=== PATIENT | female | born 1970 | race Caucasian/White ===

== ENCOUNTER 2021-01-28 11:18 | Emergency (ER) | payer OTHER, SELFPAY ==
[2021-01-28 11:53] VITALS: BP 102/58; PULSE 60; RESP 14; O2SAT 95; BMI 30.2
[2021-01-28] MEDS: Amoxicillin/Potassium Clav 875 MG TABLET PO (14:40)
--- NOTE | 2021-01-28 14:42 | ED.DENTAL ---
HPI - Dental/Oral General Chief complaint: Dental/Oral Stated complaint: tooth pain Time Seen by Provider: 01/28/21 13:19 Source: patient Mode of arrival: ambulatory History of Present Illness HPI Narrative: 50-year-old female with no significant past medical history presenting to the ED complaining of left upper tooth pain x 10 days. Reports pain radiating to ear/face, partially relieved with Tylenol/Motrin and ice at home. Denies fever, chills, inability to swallow, drainage from area, trauma Related Data Previous Rx's Medication Instructions Recorded amoxicillin-pot clavulanate 1 tab PO Q12H 7 Days #14 tab 01/28/21 [Augmentin] hydrocodone-acetaminophen 1 tab PO Q8H PRN 3 Days #9 tab 01/28/21 Allergies Allergy/AdvReac Type Severity Reaction Status Date / Time control pills Allergy Unknown DVT, R leg Uncoded 01/28/21 11:59 Review of Systems Review of Systems: Constitutional: No Fever, No Chills ENT/Mouth: +dental pain, + Ear Pain, No Nasal Congestion, No sore throat, No Rhinorrhea, No Swallowing Difficulty Cardiovascular: No Chest Pain, No SOB Respiratory: No Cough, No Sputum Gastrointestinal: No Nausea, No Vomiting, No Abdominal pain Musculoskeletal: No joint pain, No Myalgias Skin: No Skin Lesions, No rash Neuro: No Weakness, No Numbness, No Paresthesias, +headache Yes all other systems are reviewed and are negative [facility] Past Medical History Attestation statement: The following information was validated with the patient. Medical History (Updated 01/28/21 @ 14:43 by ROSIE Conner) No known health problems Surgical History (Updated 01/28/21 @ 11:57 by Marizol Kirk) No history of previous surgery Social History Social History Advance Directives: Yes Advance Directives Information Provided: No Advance Directives on File: No Patient : No Physical Exam Vital Signs: Vital Signs: Last Vital Signs Pulse 60 01/28/21 11:53 Resp 14 01/28/21 11:53 BP 102/58 L 01/28/21 11:53 Pulse Ox 95 01/28/21 11:53 Body Mass Index 30.2 Const: General: cooperative, healthy appearing and no acute distress Orientation/consciousness: patient oriented x3 Limitations: no limitations HENMT: Head: Yes normal to inspection Ears: hearing grossly normal bilaterally, external ears normal and TM's normal bilaterally General nose exam: Normal external nose present Face and sinus: Yes normal facial exam Teeth and gingiva: abnormal tooth and associated gingiva (Swollen and tender to palpation. No fluctuance/induration) upper left first molar , caries, gingiva abnormal and poor dentition Eyes: General: appearance normal, both eyes and all related structures EOM: EOMs intact bilaterally Neck: Neck: Yes normal visual inspection, Yes no lymphadenopathy and Yes no meningeal signs Resp: Effort & Inspection: normal respiratory effort, not labored and no stridor Cardio: Rate: regular rate Heart sounds: S1 normal heart sound present and S2 normal heart sound present Skin: Rashes: no rashes Wounds: no wounds Neuro: General: patient oriented x3 and no meningeal signs Gait exam (Neuro): Normal gait present Extrem: General: Yes normal to inspection MDM - Dental/Oral MDM Narrative Medical decision making narrative: 50-year-old female with no significant past medical history presenting to the ED complaining of left upper tooth pain x 10 days. On exam vital signs stable, NAD, well appearing, physical exam as above, left upper 1st molar with gingival swelling and tenderness, no appreciable abscess/fluctuance or induration. Discussed with patient she needs to follow-up with dentistry, she has an appointment on Tuesday Plan: Augmentin, pain medication Discharge Plan Discharge Clinical Impression: Dental caries Patient Disposition: Home, Self-Care Instructions: Mouth Care (ED) Additional Instructions: Augmentin is an antibiotic, take as prescribed. Continue taking Tylenol and Motrin at home [place] is an opiate pain medication, take the next 3 days for severe pain. Be were [place] has Tylenol mixed in, do not exceed 4 g of Tylenol 1 day You need to follow-up with a dentist on Tuesday as scheduled Continue to ice If pain persists or worsens, becomes unbearable, you have of drainage or fever please return to the ED Prescriptions: New amoxicillin-pot clavulanate [Augmentin] 875-125 mg tablet 1 tab PO Q12H 7 Days Qty: 14 RF: 0 hydrocodone-acetaminophen 5-325 mg tablet 1 tab PO Q8H PRN (Reason: pain, severe) 3 Days Qty: 9 RF: 0 Referrals: Chad Chow [Dentist] - 2 days Codey Lorenzo DMD [Dentist] - 2 days Ana Maria Aparicio DMD [Dentist] - 2 days Addy Larios DDS [Physician] - 2 days Ramsey Roldan DMD [Physician] - 2 days
== END 2021-01-28 14:52 | disposition home or self-care (01) ==
PROVIDERS: Emergency Provider Emergency Medicine; PCP Internal Medicine
DX: K02.9 Dental caries, unspecified (principal); K08.89 Other specified disorders of teeth and supporting structures
CPT/HCPCS: 99283

== ENCOUNTER 2021-06-05 22:01 | Emergency (ER) | payer OTHER, SELFPAY ==
--- NOTE | ~2021-06-05 | XR_ITS ---
EXAMINATION: XR KNEE, LEFT CLINICAL INFORMATION: Left knee pain COMPARISON: None TECHNIQUE: Four views of the left knee. FINDINGS: There is no fracture. No dislocation. Large volume suprapatellar joint effusion. There is mild narrowing of the lateral femoral tibial joint. There is no significant bone spur. No bony erosion. XR/XR knee LT 3V IMPRESSION: 1. No acute osseous abnormality. 2. Large joint effusion.
[2021-06-05 22:32] VITALS: BP 131/99; PULSE 79; RESP 18; TEMP 36.8; O2SAT 96; BMI 30.4
[2021-06-06] MEDS: Lidocaine HCl 2 % 20 ML VIAL INFILTRATI (00:32)
--- NOTE | 2021-06-06 01:05 | PC.NURSE ---
LEFT KNEE DRAINED AT BEDSIDE BY DR TOMLINSON 70CC REMOVED FROM LEFT KNEE BAND AID TO SITE AND DANIEL WRAP APPLIED AND ICE TO KNEE.
[2021-06-06 01:12] LABS: Source Synovial Fluid left knee
[2021-06-06 01:22] LABS: MN% 86.8 %; PMN% 13.2 %; WBC Synovial Fluid 0.511 X10*3/uL
[2021-06-06 01:27] LABS: RBC Synovial Fluid < 0.002 X10*6/uL
--- NOTE | 2021-06-06 01:28 | PC.NURSE ---
PT AWAITING LABS REPORT GIVEN TO CAROLINE BURRIS WHO WILL RESUME.
[2021-06-06 01:30] LABS: BF Shift QC OK YES
[2021-06-06 01:38] LABS: Lymphocytes Synovial Fluid 14 %; Monocytes Synovial Fluid 75 %; Neutrophils Synovial Fluid 9 %; Other Cells Synovial Fluid 2
--- NOTE | 2021-06-06 01:41 | ED_ITS ---
HPI - General Adult General Chief complaint: Extremity Injury, Lower Stated complaint: Knee swelling Time Seen by Provider: 06/05/21 23:57 Source: patient Mode of arrival: ambulatory History of Present Illness HPI narrative: 50-year-old female without significant past medical history presents with worsening left knee swelling that has not been associated with any traumatic event, fever, chills, redness. Patient states that this is never happened before and she denies any other joint swelling. Related Data Previous Rx's Medication Instructions Recorded amoxicillin 875 mg-potassium 1 tab PO Q12H 7 Days #14 tab 01/28/21 clavulanate 125 mg tablet (Augmentin) hydrocodone 5 mg-acetaminophen 325 1 tab PO Q8H PRN 3 Days #9 tab 01/28/21 mg tablet clindamycin HCl 300 mg capsule 300 mg PO TID 14 Days #42 cap 06/06/21 Allergies Allergy/AdvReac Type Severity Reaction Status Date / Time control pills Allergy Unknown DVT, R leg Uncoded 01/28/21 11:59 Review of Systems Review of Systems: Pertinent positives and negatives as stated in HPI and 10 point review of systems is otherwise negative. [facility] Past Medical History Source: nursing notes reviewed Medical History No known health problems Surgical History No history of previous surgery Social History Social History Alcohol intake: unknown Patient Tobacco Use Status: Never used Tobacco Use of substances other than those prescribed or required for medical reasons: Unknown Advance Directives: No Patient : No Physical Exam Vital Signs: Vital Signs: Last Vital Signs Temp 98.2 F 06/05/21 22:32 Pulse 79 06/05/21 22:32 Resp 18 06/05/21 22:32 BP 131/99 H 06/05/21 22:32 Pulse Ox 96 06/05/21 22:32 Body Mass Index 30.4 VITAL SIGNS: Reviewed. GENERAL: Well developed, well nourished, in no acute distress. HEAD: Normocephalic/atraumatic EYES: PERRLA, EOMI LUNGS: Normal breath sounds. No adventitious sounds or accessory muscle use. SpO2<96> CARDIOVASCULAR: Regular rate and rhythm without noted murmurs, no JVD or lower extremity edema. ABDOMEN: Soft, non-tender, non-distended with bowel sounds. LEFT KNEE: THERE IS A NOTED EFFUSION TO THE LEFT KNEE WITHOUT ERYTHEMA OR INDURATION BUT PAIN ON PALPATION IN DISCOMFORT ON EXTENSION AT THE KNEE NEUROLOGIC: Alert and oriented x 4. Strength and sensation to light touch were grossly intact x 4. Course Course Course Narrative: 50-year-old female with history and clinical presentation consistent with a traumatic left knee effusion without evidence of infection and denies any history of gout. Aspiration of suprapatellar effusion without complications and sent to lab. Patient placed on antibiotics and discharged home and will follow-up with her primary care provider to follow-up on remaining results. Medical Decision Making Lab Data Labs: Lab Results 06/06/21 Range/Units 00:59 Synovial Source left knee Synovial WBC 0.511 X10*3/uL Synovial RBC < 0.002 X10*6/uL Synovial Neutrophils 9 % Synovial Lymphocytes 14 % Synovial Monocytes 75 % Synovial Other Cells 2 Discharge Plan Discharge Clinical Impression: Effusion of knee joint, left Patient Disposition: Home, Self-Care Instructions: Swollen Knee Joint (ED), Joint Aspiration (DC) Additional Instructions: 1. Complete the entire course of antibiotics unless review of remaining fluid with your primary care provider is negative for evidence infection. Return to the ER for acute worsening of symptoms. Prescriptions: New clindamycin HCl 300 mg capsule 300 mg PO TID 14 Days Qty: 42 RF: 0 No Action amoxicillin-pot clavulanate [Augmentin] 875-125 mg tablet 1 tab PO Q12H 7 Days Qty: 14 RF: 0 hydrocodone-acetaminophen 5-325 mg tablet 1 tab PO Q8H PRN (Reason: pain, severe) 3 Days Qty: 9 RF: 0 Referrals: Geraldine Jackson MD [Primary Care Provider] - 2 days
== END 2021-06-06 01:51 | disposition home or self-care (01) ==
PROVIDERS: Emergency Provider Student in an Organized Health Care Education/Training Program; PCP Internal Medicine
DX: M25.462 Effusion, left knee (principal); M25.562 Pain in left knee; Z79.899 Other long term (current) drug therapy
CPT/HCPCS: 73562; 87071; 87073; 87205; 89051; 89060; 99284

== ENCOUNTER → 2022-06-15 13:56 | Outpatient (BNVA) | payer OTHER, SELFPAY | PROVIDERS: PCP Internal Medicine; Visit Provider Internal Medicine | DX: S81.052A Open bite, left knee, initial encounter (principal); S20.222A Contusion of left back wall of thorax, initial encounter; W54.0XXA Bitten by dog, initial encounter | CPT/HCPCS: 99203 ==

== ENCOUNTER → 2022-06-16 10:35 | Outpatient (BNVA) | payer OTHER, SELFPAY | PROVIDERS: PCP Internal Medicine; Visit Provider Physician Assistant | DX: S81.052A Open bite, left knee, initial encounter (principal); W54.0XXA Bitten by dog, initial encounter; M25.462 Effusion, left knee | CPT/HCPCS: 73564; 99215 ==

== ENCOUNTER → 2022-06-17 08:43 | Outpatient (BNVA) | payer OTHER, SELFPAY | PROVIDERS: PCP Internal Medicine; Visit Provider Internal Medicine | DX: S81.052A Open bite, left knee, initial encounter (principal); W54.0XXA Bitten by dog, initial encounter; M25.462 Effusion, left knee | CPT/HCPCS: 99213 ==

== ENCOUNTER → 2022-06-24 14:06 | Outpatient (BNVA) | payer OTHER, SELFPAY | PROVIDERS: PCP Internal Medicine; Visit Provider Internal Medicine | DX: S81.052D Open bite, left knee, subsequent encounter (principal); S20.222D Contusion of left back wall of thorax, subsequent encounter; W54.0XXD Bitten by dog, subsequent encounter | CPT/HCPCS: 99213 ==

== ENCOUNTER 2023-04-12 14:27 | Outpatient (AMB) | payer OTHER, SELFPAY ==
--- NOTE | 2023-04-12 14:51 | AM.OFFWIN_ITS ---
Intake Intake Visit Reasons: EP LT eye Concern Intake Note: Pt is here c/o left eye irritation. OD : 20/25 with glasses OS : 20/20 with glasses OU: 20/25 with glasses Patient Tobacco Use Status: Never used Tobacco Allergies control pills Allergy (Unknown, Uncoded 04/12/23 15:25) DVT, R leg Medication List - Last Reconciled 04/12/23 by Ritesh Matthews MD No Known Home Meds Do you need a note to return to daycare/school/sports/work: No HPI EP LT eye Concern HPI Details 52-year-old female presents to the office for a sick visit. Patient is reporting history of a swollen left eye. Symptoms started a few days ago. The upper eyelid of the left eye is particularly swollen. Vision is normal. Excessive tearing. [facility] Medical History No known health problems Surgical History No history of previous surgery Social History Alcohol intake: unknown Patient Tobacco Use Status: Never used Tobacco Physical Exam Eyes Other: Left eye: Upper eyelid purulent discharge from the medial canthus. Conjunctiva is mildly congested. Cornea and anterior chamber is clear. No digital tenderness. Assessment & Plan Assessment & Plan (1) Hordeolum externum left eye, unspecified eyelid: Code(s): H00.016 - Hordeolum externum left eye, unspecified eyelid Plan: Meloxicam, erythromycin ophthalmic ointment, Bactrim p.o. medications have been called in. Patient was advised to use warm compress. Medications: New erythromycin 0.5 inches ophthalmic (eye) TID 1 g 0RF sulfamethoxazole-trimethoprim 800-160 mg (Bactrim DS) 1 tab PO BID 14 tabs 0RF 7 days meloxicam 15 mg PO DAILY 14 tabs 0RF erythromycin 0.5 inches ophthalmic (eye) TID 1 g 0RF Coding Level of Care Code Est Pt Level 4 (33922) Diagnoses Hordeolum externum left eye, unspecified eyelid H00.016
== END 2023-04-12 15:46 | disposition home or self-care (01) ==
PROVIDERS: PCP Internal Medicine; Visit Provider Internal Medicine
DX: H00.016 Hordeolum externum left eye, unspecified eyelid (principal)
CPT/HCPCS: 99214

== ENCOUNTER 2023-08-19 00:20 | Emergency (ER) | payer OTHER, SELFPAY ==
[2023-08-19 00:28] VITALS: BP 127/70; PULSE 86; RESP 18; TEMP 36.8; O2SAT 96; BMI 32.5
--- NOTE | 2023-08-19 01:20 | ED.SKABFB ---
HPI - Skin/Abscess/Foreign Bdy General Chief complaint: Skin/Abscess/Foreign Body Stated complaint: ingrown hair into abscess ? Time Seen by Provider: 08/19/23 01:14 Source: patient Mode of arrival: ambulatory Limitations: no limitations History of Present Illness HPI narrative: Patient comes to the emergency room complaining of an abscess in the left labia majora. Patient states that approximately 2 weeks ago, she shaved, shortly after she started developing an abscess. Patient states that it is very painful, erythematous but has not drained any pus. Patient states that she has generalized malaise, no fever chills, diffuse body aches Related Data Previous Rx's Medication Instructions Recorded erythromycin 5 mg/gram (0.5 %) eye 0.5 inch ophthalmic (eye) TID #1 g 04/12/23 ointment meloxicam 15 mg tablet 15 mg PO DAILY #14 tabs 04/12/23 sulfamethoxazole 800 1 tab PO BID 7 days #14 tabs 04/12/23 mg-trimethoprim 160 mg tablet (Bactrim DS) metformin 500 mg tablet 500 mg PO BID #60 tabs 08/19/23 sulfamethoxazole 800 1 tab PO BID #20 tabs 08/19/23 mg-trimethoprim 160 mg tablet (Bactrim DS) tramadol 50 mg tablet 50 mg PO BID PRN pain #7 tabs 08/19/23 Allergies Allergy/AdvReac Type Severity Reaction Status Date / Time control pills Allergy Unknown DVT, R leg Uncoded 04/12/23 15:25 Review of Systems Review of Systems: Constitutional : No Weight loss, No Fever, No Chills, No Night Sweats, No Fatigue, No Malaise ENT/Mouth : No Hearing loss, No Ear Pain, No Nasal Congestion, No Sinus Pain, No Hoarseness, No sore throat, No Rhinorrhea, No Swallowing Difficulty Eyes: No Eye Pain, No Swelling, No Redness, No Foreign Body, No Discharge, No Vision Changes Cardiovascular : No Chest Pain, No SOB, No Dyspnea on Exertion, No Orthopnea, No Edema, No Palpitations Respiratory : No Cough, No Sputum, No Wheezing, No Smoke Exposure, No Dyspnea Gastrointestinal : No Nausea, No Vomiting, No Diarrhea, No Constipation, No abdominal Pain, No Hematochezia, No Melena Genitourinary : no irregular bleeding, No Dysuria, No Urinary Frequency, No Hematuria, No Urinary Incontinence, No Urgency, No Flank Pain, No Urinary Flow Changes, No Hesitancy Musculoskeletal : No joint pain, No Myalgias, No Joint Swelling Skin : Abscess in left labia majora Neuro : No Weakness, No Numbness, No Paresthesias, No Loss of Consciousness, No Dizziness, No Headache Psych : No Anxiety/Panic, No Depression, No SI/HI/AH/VH, No Social Issues, Heme/Lymph: No Bruising, No Bleeding,No Lymphadenopathy Endocrine : No Polyuria, No Polydipsia, No Temperature Intolerance [facility] Past Medical History Medical History No known health problems Surgical History No history of previous surgery Social History Social History Alcohol intake: unknown Patient Tobacco Use Status: Never used Tobacco Advance Directives: No Advance Directives Information Provided: Yes Physical Exam Vital Signs: Vital Signs: Last Vital Signs Temp 98.3 F 08/19/23 00:28 Pulse 86 08/19/23 00:28 Resp 18 08/19/23 00:28 BP 127/70 08/19/23 00:28 Pulse Ox 96 08/19/23 00:28 O2 Del Method Room Air 08/19/23 00:28 BMI result Body Mass Index 32.5 Const: Other: Appearance: Alert. Oriented X3. No acute distress. Eyes: Pupils equal, round and reactive to light. ENT: Pharynx normal. Neck: Normal inspection. Neck supple. No lymph nodes noted. No crepitus CVS: Normal heart rate and rhythm. Pulses normal. Normal S1 and S2 Respiratory: No respiratory distress. Breath sounds normal. No Wheezing. No rales Abdomen: Soft and nontender. No rigidity. No distention. : Left labia majora is erythematous, swollen, there is a 2 cm x 1 cm oval eschar, no pus drainage Skin: Skin warm and dry. Normal skin color. Normal skin turgor. Extremities: No lower extremity edema. No Lacerations. No Rash Neuro: Oriented X 3. No motor deficit. No sensory deficit. Moving all extremities. No slurred speech. CN 2 through 12 grossly intact Psych: calm, cooperative, normal affect Course Course Course Narrative: -I discussed with the patient that we will proceed with that an I&D , patient agreeable, we will also obtain labs. - Medications Administered Discontinued Medications Generic Name Dose Route Start Last Admin Trade Name Maria M PRN Reason Stop Dose Admin Sodium Chloride 1,000 mls @ 999 mls/hr 08/19/23 02:25 08/19/23 04:17 Ns IVCONT 08/19/23 03:25 Infused .Q1H1M ONE Infusion Insulin Human Regular 5 unit 08/19/23 02:25 08/19/23 02:36 Insulin Regular, Human 100 Unit/Ml 3 Ml Vial IVPUSH 08/19/23 02:26 5 unit ONCE ONE Administration Insulin Human Regular 5 unit 08/19/23 03:15 08/19/23 03:22 Insulin Regular, Human 100 Unit/Ml 3 Ml Vial IVPUSH 08/19/23 03:16 5 unit ONCE ONE Administration Lidocaine HCl 20 ml 08/19/23 01:19 08/19/23 02:18 Lidocaine Hcl 1 % 20 Ml Vial INFILTRATI 08/19/23 01:20 20 ml ONCE ONE Administration Trimethoprim/Sulfamethoxazole 1 tab 08/19/23 02:36 08/19/23 03:22 Sulfamethox/Trimeth 800/160 Tablet PO 08/19/23 02:37 1 tab ONCE ONE Administration Medical Decision Making Medical Decision Making [facility] Narrative: -patient had had a 2 cm x 1 cm eschar of necrotic tissue which needed debridement. -once the eschar was taken off, there was a large amount of pus that was expressed. The eschar was fully removed. Patient required debridement to remove the necrotic tissue -packing inserted. -white blood cell count within normal limits. There is no crepitus on physical exam, fornier's gangrene is not suspected -my interpretation of labs: Glucose 403. Patient getting IV fluids and 5 units of insulin. Patient states that 3 years ago, she was told that her glucose was high, patient was able to control her glucose levels with diet and metformin then taken off. This is the 1st time the patient hears that her glucose is elevated. Could be secondary to the infection that she has. -patient's blood glucose improved to 295. Patient states she feels better and would like to be discharged home. Differential Diagnosis Differential Diagnoses: The differential diagnosis associated with the presentation includes (Cellulitis, abscess, hyperglycemia) Admission/Observation Consideration of admission/observation: Escalation of care including admission/observation considered (Given patient's constellation of symptoms and presentation, admission was considered) Lab Data MDM Lab Attestation statement: I reviewed the patient's lab results. 08/19/23 02:33 08/19/23 01:50 Labs: Lab Results 08/19/23 08/19/23 08/19/23 Range/Units 01:50 02:33 02:59 WBC 10.7 (4.8-10.8) X10*3/uL RBC 4.80 (4.20-5.50) X10*6/uL Hgb 14.7 (12.0-16.0) g/dl Hct 42.2 (37.0-47.0) % MCV 87.9 (80.0-98.0) fL MCH 30.6 (27.0-33.0) pg MCHC 34.8 (31.0-35.0) g/dl RDW 12.8 (11.0-16.0) % Plt Count 239 (160-400) X10*3/uL MPV 10.3 (9.4-12.3) fL Immature Gran % (Auto) 0.4 (0.0-0.4) % Neut % (Auto) 61.0 (45-73) % Lymph % (Auto) 29.3 (20-40) % Wilkinson % (Auto) 7.1 (2-11) % Eos % (Auto) 1.7 (0-4) % Baso % (Auto) 0.5 (0-2) % Lymph # (Auto) 3.1 (1.2-4.9) X10*3/uL Wilkinson # (Auto) 0.8 (0.1-1.2) X10*3/uL Eos # (Auto) 0.2 (0.0-0.4) X10*3/uL Baso # (Auto) 0.1 (0.0-0.2) X10*3/uL Abs Immat Gran (auto) 0.04 H (0.00-0.03) X10*3/uL Absolute Neuts (auto) 6.5 (2.0-8.3) x10*3/uL Absolute Nucleated RBC 0.000 (0.0-0.012) X10*3/uL Nucleated RBC % (auto) 0.0 (0.0-0.2) /100WBC Sodium 135 (135-145) mmol/L Potassium 4.1 (3.3-5.1) mmol/L Chloride 101 (96-108) mmol/L Carbon Dioxide 22 (22-29) mmol/L Anion Gap 16 (12-20) BUN 18 H (9-16) mg/dL Creatinine 0.82 (0.5-1.4) mg/dL Estim Creat Clear Calc 94.4 Estimated GFR > 60 POC Glucose 341 H (60-115) mg/dL Random Glucose 403 H* (60-115) mg/dL Lactic Acid 1.6 (0.5-2.0) mmol/L Calcium 9.5 (8.4-10.2) mg/dL COVID-19 (DEVIN) Negative (Negative) COVID-19 Clin Com See Note Influenza Type A (VITA) Negative (Negative) Influenza Type B (VITA) Negative (Negative) Influenza A & B Note See Note 08/19/23 Range/Units 03:42 WBC (4.8-10.8) X10*3/uL RBC (4.20-5.50) X10*6/uL Hgb (12.0-16.0) g/dl Hct (37.0-47.0) % MCV (80.0-98.0) fL MCH (27.0-33.0) pg MCHC (31.0-35.0) g/dl RDW (11.0-16.0) % Plt Count (160-400) X10*3/uL MPV (9.4-12.3) fL Immature Gran % (Auto) (0.0-0.4) % Neut % (Auto) (45-73) % Lymph % (Auto) (20-40) % Wilkinson % (Auto) (2-11) % Eos % (Auto) (0-4) % Baso % (Auto) (0-2) % Lymph # (Auto) (1.2-4.9) X10*3/uL Wilkinson # (Auto) (0.1-1.2) X10*3/uL Eos # (Auto) (0.0-0.4) X10*3/uL Baso # (Auto) (0.0-0.2) X10*3/uL Abs Immat Gran (auto) (0.00-0.03) X10*3/uL Absolute Neuts (auto) (2.0-8.3) x10*3/uL Absolute Nucleated RBC (0.0-0.012) X10*3/uL Nucleated RBC % (auto) (0.0-0.2) /100WBC Sodium (135-145) mmol/L Potassium (3.3-5.1) mmol/L Chloride (96-108) mmol/L Carbon Dioxide (22-29) mmol/L Anion Gap (12-20) BUN (9-16) mg/dL Creatinine (0.5-1.4) mg/dL Estim Creat Clear Calc Estimated GFR POC Glucose 295 H (60-115) mg/dL Random Glucose (60-115) mg/dL Lactic Acid (0.5-2.0) mmol/L Calcium (8.4-10.2) mg/dL COVID-19 (DEVIN) (Negative) COVID-19 Clin Com Influenza Type A (VITA) (Negative) Influenza Type B (VITA) (Negative) Influenza A & B Note Procedures Abscess I/D Site: other (Left labia majora) Side (if applicable): left Local Anesthetic: lidocaine 1% Amount of anesthesia used (mL): 20 Technique: incised with blade Amount of fluid expressed (mL): 10 Sent for culture/gram staining?: No Irrigation: Yes Packing used?: iodoform Critical Care Time Critical Care Time Critical Care Time: Yes Total Critical Care Time: 60 Attestation: I have personally provided critical care time. Time includes review of lab data, radiology results, discussion with consultants, and monitoring for potential decompensation. Intervention performed as documented. Discharge Plan Discharge Clinical Impression: Acute hyperglycemia, Abscess Patient Disposition: Home, Self-Care Instructions: Abscess (ED), Diabetic Hyperglycemia (ED), Diabetes and Exercise (ED) Additional Instructions: The packing needs to be removed in 24-48 hours. It can be done at your primary care physician, urgent care or here in the emergency room. Please follow-up with your primary care physician tomorrow. If you have any worsening or new symptoms, please return to the emergency room or call 911 Prescriptions: New metformin 500 mg tablet 500 mg PO BID Qty: 60 1RF sulfamethoxazole-trimethoprim [Bactrim DS] 800-160 mg tablet 1 tab PO BID Qty: 20 0RF tramadol 50 mg tablet 50 mg PO BID PRN (Reason: pain) Qty: 7 0RF No Action sulfamethoxazole-trimethoprim [Bactrim DS] 800-160 mg tablet 1 tab PO BID 7 Days Qty: 14 0RF meloxicam 15 mg tablet 15 mg PO DAILY Qty: 14 0RF erythromycin 5 mg/gram (0.5 %) ointment 0.5 inch ophthalmic (eye) TID Qty: 1 0RF Stand Alone Forms: Work/School Release
--- OUTSIDE RECORDS SUMMARY | 2023-08-19 01:23 | XMS_ITS | Continuity of Care Document ---
Author Name Unknown Organization [facility] Address [address] [place] [id number] Care Team Providers Care Associate Field Service Engineer Name Role Phone Manuel AUGUSTE, Geraldine Poole Primary Care Physician Encounter [facility] Date(s): 08/08/19 - 09/07/[address] [address] Attending Physician: Not on Staff, Attending MD Admitting Physician: Not on Staff, Admitting MD Referring Physician: Not on Staff, Referring MD Allergies, Adverse Reactions, Alerts Substance Reaction Severity Status estrogens blood clots Active Immunizations Given and Recorded Vaccine Date Status Refusal Reason Fluzone (oldterm) 1 10/15/11 Given tetanus-diphtheria toxoids (Td) 2 10/15/11 Given 1Admin Note: vis given 2Admin Note: VIS GIVEN 07/09/2008 Medications ibuprofen 600 mg oral tablet 600 mg, 1, tablet, By Mouth, Every 6 hours, PRN, Refills 0, Maintenance, Pain , Mild, 08/08/19 7:33:00 EST Start Date: 08/08/19 Status: Ordered lorazepam 1 mg oral tablet 1 tablet = 1 mg, By Mouth, Daily at bedtime, PRN Sleep, # 12 tablet, 0 Refills Start Date: 08/20/09 Stop Date: 08/27/09 Status: Ordered prednisone 20 mg oral tablet 2 tablets, By Mouth, Daily, take 2 pills in the AM with food, # 10 tablet, 0 Refills Start Date: 08/20/09 Stop Date: 09/18/09 Status: Ordered Tylenol 325 mg oral tablet 650 mg, 2, tablet, By Mouth, Every 4 hours, Refills 0, Maintenance, 08/08/19 7:33:00 EST Start Date: 08/08/19 Status: Ordered
[2023-08-19 02:12] LABS: Lactic Acid 1.6 mmol/L (0.5-2.0)
[2023-08-19] MEDS: Lidocaine HCl 1 % 20 ML VIAL INFILTRATI (02:18)
[2023-08-19 02:19] LABS: Anion Gap 16 (12-20); Blood Urea Nitrogen 18 mg/dL (9-16); Calcium 9.5 mg/dL (8.4-10.2); Carbon Dioxide 22 mmol/L (22-29); Chloride 101 mmol/L (96-108); Creatinine Clr Calc Pharmacy 94.4; Estimated Glomerular Filt Rate > 60; Glucose Random 403 mg/dL (60-115); Potassium 4.1 mmol/L (3.3-5.1); Sodium 135 mmol/L (135-145)
[2023-08-19] MEDS: Insulin Regular, Human 100 UNIT/ML 3 ML VIAL IVPUSH ×2 (02:36→03:22)
[2023-08-19] MEDS: 0.9 % Sodium Chloride 1,000 ML 999 ML IVCONT (02:36)
[2023-08-19 02:41] LABS: Basophils Absolute Auto 0.1 X10*3/uL (0.0-0.2); Basophils Percent Auto 0.5 % (0-2); Eosinophils Absolute Auto 0.2 X10*3/uL (0.0-0.4); Eosinophils Percent Auto 1.7 % (0-4); Hematocrit 42.2 % (37.0-47.0); Hemoglobin 14.7 g/dl (12.0-16.0); Imm Gran Abs Auto 0.04 X10*3/uL (0.00-0.03); Imm Gran Pct Auto 0.4 % (0.0-0.4); Lymphocytes Absolute Auto 3.1 X10*3/uL (1.2-4.9); Lymphocytes Percent Auto 29.3 % (20-40); Mean Corpuscular HGB Conc 34.8 g/dl (31.0-35.0); Mean Corpuscular Hemoglobin 30.6 pg (27.0-33.0); Mean Corpuscular Volume 87.9 fL (80.0-98.0); Mean Platelet Volume 10.3 fL (9.4-12.3); Monocytes Absolute Auto 0.8 X10*3/uL (0.1-1.2); Monocytes Percent Auto 7.1 % (2-11); Neutrophils Absolute Auto 6.5 x10*3/uL (2.0-8.3); Platelet Count 239 X10*3/uL (160-400); Red Cell Distribution Width 12.8 % (11.0-16.0); White Blood Count 10.7 X10*3/uL (4.8-10.8)
[2023-08-19 02:42] LABS: MANUAL DIFF FLAG NO
[2023-08-19 02:53] LABS: COVID-19 Test Negative (Negative); IDNOW Serial# BCCEAD1C
[2023-08-19 02:56] LABS: IDNOW Serial# 08D9AD1C; Influenza A Negative (Negative); Influenza B2 Negative (Negative)
[2023-08-19 03:05] LABS: Glucose, Whole Blood 341 mg/dL (60-115)
[2023-08-19] MEDS: Sulfamethox/Trimeth 800/160 TABLET 1 TAB PO (03:22)
[2023-08-19 03:46] LABS: Glucose, Whole Blood 295 mg/dL (60-115)
[2023-08-19 04:57] LABS: Glucose, Whole Blood 295 mg/dL (60-115)
[2023-08-19 05:18] VITALS: PULSE 76; RESP 16; TEMP 37.2; O2SAT 98
--- NOTE | 2023-08-19 05:18 | PC.NURSE ---
abscess drained by dr mcfadden at bedside. pt medicated per oct. poc bgl improved. pt educated on metformin and need to monitor bgl. pt educaTED to f/u with pcp. ivf infused. pt verbalizes understanding importance of finishing abx. axox4 ambulatory with steady gait. nad.
== END 2023-08-19 05:20 | disposition home or self-care (01) ==
PROVIDERS: Emergency Provider Emergency Medicine
DX: N76.4 Abscess of vulva (principal); R73.9 Hyperglycemia, unspecified; Z11.52 Encounter for screening for COVID-19
CPT/HCPCS: 36415; 56405; 80048; 82947; 83605; 85025; 87040; 87502; 87635; 96361; 96374; 96376; 99283; 99284

== ENCOUNTER 2023-08-20 23:57 | Emergency (ER) | payer OTHER, SELFPAY ==
[2023-08-21 00:54] VITALS: BP 97/62; PULSE 80; RESP 18; TEMP 36.9; O2SAT 96; BMI 31.9
== END 2023-08-21 02:43 | disposition left against medical advice (07) ==
PROVIDERS: Emergency Provider Emergency Medicine
DX: Z48.89 Encounter for other specified surgical aftercare (principal)
CPT/HCPCS: 99281

== ENCOUNTER 2023-11-29 08:53 | Outpatient (AMB) | payer OTHER, SELFPAY ==
[2023-11-29 08:57] VITALS: BP 122/70; PULSE 82; O2SAT 95; BMI 31.5
--- NOTE | 2023-11-29 08:57 | MHC.PC.OV ---
Vital Signs 11/29/23 08:57 Height 5 ft 8 in Weight 207 lb BMI 31.5 BP 122/70 Blood Pressure Location Rt brachial Position Sitting Pulse 82 Pulse Source Pulse Oximeter Pulse Oximetry (%) 95 Oxygen Delivery Method Room Air Intake Visit Reasons: Med follow up/ re-establish Intake Note: Pt is here today as a New Patient to re-establish care Allergies control pills Allergy (Unknown, Uncoded 11/29/23 09:33) DVT, R leg Medication List - Last Reconciled 11/29/23 by Geraldine Jackson MD No Known Home Meds Tobacco use date assessed: 11/29/23 Dental Screening Dental Screen Date: 11/29/23 Did you have a dental visit in the last 12 months?: Yes Did you have a dental problem in the last 6 months where you did not have access to dental care?: Yes Was dental information given to patient?: Patient has dentist HPI Med follow up/ re-establish HPI Details 53-year-old lady with history of diabetes mellitus, obesity, here today to re-establish care . . She has been out of her metformin now for the last 2 months, previously was getting her prescription from the ER . She has has been compliant with healthy eating habits, has lost weight through diet and exercise. She is also interested in stopping smoking, currently smokes at least half a pack a day and would like to help help in quitting. Has never tried any smoking cessation aids in the past. [facility] Medical History (Updated 11/29/23 @ 09:49 by Geraldine Jackson MD) Obesity (BMI 30.0-34.9) Diabetes mellitus with hyperglycemia Cigarette smoker motivated to quit No known health problems Surgical History No history of previous surgery Family History (Updated 11/29/23 @ 09:06 by Jacinda Paz CMA) Father Substance use disorder Social History Housing: Condominium Alcohol intake: unknown Patient Tobacco Use Status: Current everyday Tobacco user Tobacco use type: Cigarette e-Cigarette/Vaping Use: Never Used service: No Current occupational status: employed Cognitive needs: No Hearing needs: No Vision needs: Yes Questionnaire PHQ-9 Over the last 2 weeks, how often have you been bothered by any of the following problems? 1. Little interest or pleasure in doing things: not at all 2. Feeling down, depressed, or hopeless: not at all 3. Trouble falling or staying asleep, or sleeping too much: not at all 4. Feeling tired or having little energy: not at all 5. Poor appetite or overeating: not at all 6. Feeling bad about yourself - or that you are a failure or have let yourself or your family down: not at all 7. Trouble concentrating on things, such as reading the newspaper or watching television: not at all 8. Moving or speaking so slowly that other people could have noticed. Or the opposite - being so fidgety or restless that you have been moving around a lot more than usual: not at all 9. Thoughts that you would be better off or of hurting yourself in some way: not at all Total score: 0 Depression Screening Interpretation: Negative Depression Screening Done: Yes 82984 - PHQ-9 Billing: Yes Source: Developed by Drs. Vijay Franco, Audelia Worthington, Long Santo and colleagues, with an educational sujit from [employer]. Thrive Questionnaire Date Thrive assessed: 11/29/23 I am a: Patient What is your living situation today?: I have a steady place to live Within the past 12 months, did the food you bought not last and you didn't have the money to get more?: Never true Within the past 12 months, did you worry whether your food would run out before you got money to buy more?: Never true Do you have trouble paying for medicines?: No Do you have trouble getting transportation to medical appointments?: No Do you have trouble paying your heating and electricity bill?: No Do you have trouble taking care of your child, family member or friend?: No Do you have trouble with day-to-day activities such as bathing, preparing meals, shopping, managing finances, etc.?: No Are you currently unemployed and looking for a job?: No Are you interested in more education?: No THRIVE Score: 0 AUDIT C Alcohol Use Questionnaire (AUDIT-C) 1. How often do you have a drink containing alcohol?: Monthly or less 2. How many drinks containing alcohol do you have on a typical day when you are drinking?: 1 or 2 3. How often do you have six or more drinks on one occasion?: Never Total Score: 1 JASVIR-7 AMB Questionnaire JASVIR-7 Date JASVIR - 7 assessed: 11/29/23 Feeling nervous, anxious, or on edge: 0 = Not at all Not being able to stop or control worryin = Not at all Worrying too much about different things: 0 = Not at all Trouble relaxin = Not at all Being so restless that it is hard to sit still: 0 = Not at all Becoming easily annoyed or irritable: 0 = Not at all Feeling afraid as if something awful might happen: 0 = Not at all Total JASVIR-7 score (0-4 normal; 5-9 mild; 10-14 moderate; 15-21 severe): 0 Source: Developed by Drs. Vijay Franco, Audelia Worthington, Long Santo and colleagues, with an educational sujit from [employer]. Review of Systems Const Reports no additional complaints Eyes Details: Seen at [facility] for her routine eye exam August 2023, per patient Reports no additional complaints ENT Reports no additional complaints Card Denies chest pain, Denies pedal edema, Denies irregular heart rhythm, Denies lightheadedness, Denies palpitations and Denies dyspnea Resp Denies chest congestion, Denies cough, Denies hemoptysis and Denies dyspnea GI Reports no additional complaints Reports no additional complaints Musc Reports no additional complaints Skin/Breast Denies breast pain, Denies breast mass and Denies rash Neuro Reports no additional complaints Psych Reports no additional complaints Endo Denies palpitations Man/Lymph Reports no additional complaints Aller/Immun Reports no additional complaints Physical exam (Primary Care) Vital Signs: Last Vital Signs Pulse 82 11/29/23 08:57 BP 122/70 11/29/23 08:57 Pulse Ox 95 11/29/23 08:57 Oxygen Delivery Method Room Air 11/29/23 08:57 BMI result Body Mass Index 31.5 Tobacco/Smoking Status: Tobacco use Status Tobacco use date assessed 11/29/23 11/29/23 09:10 Patient Tobacco Use Status Current everyday Tobacco 11/29/23 09:10 Tobacco use type Cigarette 11/29/23 09:10 e-Cigarette/Vaping Use Never Used 11/29/23 09:10 PHQ-9: PHQ-9 Score PHQ-9: Total score 0 11/29/23 09:58 Depression Screening Interpretation: Negative Thrive Assessment: Date of Thrive Assessment Date Thrive assessed 11/29/23 11/29/23 09:19 Const General: comfortable, no acute distress and alert Orientation/consciousness: patient oriented x3 Limitations: no limitations HENMT Ears: external ears normal, TM's normal bilaterally and EAC's normal General nose exam: Normal external nose present and No nasal discharge present Mouth: Normal oral and palatal mucosa present, oropharynx normal and moist mucous membranes Eyes General: appearance normal, both eyes and all related structures Conjunctivae: conjunctivae normal Sclerae: sclerae normal Pupils: Equal, round and reactive pupils present EOM: EOMs intact bilaterally Neck Neck: Yes full ROM, Yes no lymphadenopathy and Yes supple Chest Breast/axilla palpation: normal palpation of the breasts Resp Effort & Inspection: normal respiratory effort and able to speak in complete sentences Auscultation: clear to auscultation bilaterally Cardio Rate: regular rate Rhythm: regular rhythm Heart sounds: S1 normal heart sound present and S2 normal heart sound present GI Palpation (GI): Soft to palpation, nontender and no masses Auscultation: normal bowel sounds Back/Spine/Pelvis Back: No back tenderness Skin General skin exam: no rashes or lesions noted Neuro General: patient oriented x3, gait normal, tone normal, moves all extremities, Normal light touch and pain sensation and no focal motor deficits Cranial nerves: Yes CN's II-XII intact bilaterally and Yes Equal, round and reactive pupils present Cognition (Neuro): normal cognition Extrem General: Yes full ROM, Yes no joint enlargement, Yes no clubbing, cyanosis or edema and Yes no calf tenderness Psych Appearance: grossly normal and well kempt Mental Status: mental status grossly normal Speech and movement: Normal speech and movement present Affect: normal affect Attitude: cooperative Thought process: Normal thought process present Thought content: Normal thought content present, suicidality and no homicidality Results AMB Hemoglobin A1c AMB Hemoglobin A1c 7.4 % Last Edit by Jacinda Paz CMA on 11/29/23 09:26 Results Reviewed Results Reviewed: Laboratory Last Values Hgb A1c (Clinic) 7.4 % (4.0-6.0) H 11/29/23 09:18 Assessment and Plan Assessment & Plan (1) Cigarette smoker motivated to quit: Code(s): F17.210 - Nicotine dependence, cigarettes, uncomplicated Plan: Started on varenicline starter pack, patient instructed on how to take medication, discussed possible side effects of medication which may cause some nausea, abdominal cramping, having vivid dreams when taking it and may worsen depression, and increase causes with side healthy. Advised to stop taking medication and call us right away if any of these symptoms develops. Will see her back for follow-up in 4 weeks after starting medication. (2) Diabetes mellitus with hyperglycemia: Code(s): E11.65 - Type 2 diabetes mellitus with hyperglycemia Plan: Restarted on metformin ER 500 mg to take 1 tablet at night with supper. Continue with adherence to healthy eating habits and regular exercise. Up-to-date with her diabetes retinopathy screening. Declined pneumonia vaccine and does not want to get COVID booster. Scheduled appointment with ict educator (3) Obesity (BMI 30.0-34.9): Code(s): E66.9 - Obesity, unspecified Plan: Your BMI is above the ideal range. I deal BMI is between 18.5- 24. BMI is calculated from you height and weight. Weight gain happens when you taken more calories than you burn off. Discussed need to increase activity and weight reduction. Recommended focusing on improving health instead of dieting. Mediterranean diet is a healthy diet that helps, limit food high in fat, sugar, and calories. Eat slowly, pay attention to portion sizes, plan your meals ahead of time, start regular physical activity, at least 150 minutes of moderate intensity exercise, or 90 minutes per week of vigorous exercise. Keeping a food diary, tracking what you eat and your physical activity can help assess what improvements you can make. There are many health problems associated with being overweight/obese, so it is important to improve your diet and exercise. There are medications and surgical options available, but Lifestyle changes are the 1st step. Referred to entertainment reporter for dietary guidance Orders: Orders Lipid Panel 11/29/23 E11.65 - Type 2 diabetes mellitus with hyperglycemia, E66.9 - Obesity, unspecified, F17.210 - Nicotine dependence, cigarettes, uncomplicated, Z78.0 - Asymptomatic menopausal state Microalbumin, Random (w Creat) 11/29/23 E11.65 - Type 2 diabetes mellitus with hyperglycemia, E66.9 - Obesity, unspecified, F17.210 - Nicotine dependence, cigarettes, uncomplicated, Z78.0 - Asymptomatic menopausal state Vitamin D 25-OH Total 11/29/23 E11.65 - Type 2 diabetes mellitus with hyperglycemia, E66.9 - Obesity, unspecified, F17.210 - Nicotine dependence, cigarettes, uncomplicated, Z78.0 - Asymptomatic menopausal state Comprehensive [place]. Panel Fast 11/29/23 E11.65 - Type 2 diabetes mellitus with hyperglycemia, E66.9 - Obesity, unspecified, F17.210 - Nicotine dependence, cigarettes, uncomplicated, Z78.0 - Asymptomatic menopausal state AMB Hemoglobin A1c 11/29/23 Z13.9 - Encounter for screening, unspecified Complete Blood Count Auto Diff 11/29/23 E11.65 - Type 2 diabetes mellitus with hyperglycemia, E66.9 - Obesity, unspecified, F17.210 - Nicotine dependence, cigarettes, uncomplicated, Z78.0 - Asymptomatic menopausal state Medications: New varenicline PO PER PKG DIR 53 ea 0RF F17.210 - Nicotine dependence, cigarettes, uncomplicated metformin ER 500 mg PO QPM 90 tabs 1RF E11.65 - Type 2 diabetes mellitus with hyperglycemia, E66.9 - Obesity, unspecified Coding Level of Care Code New Pt Level 4 (60486) Diagnoses Cigarette smoker motivated to quit F17.210 Diabetes mellitus with hyperglycemia E11.65 Obesity (BMI 30.0-34.9) E66.9
== END 2023-11-29 10:19 | disposition home or self-care (01) ==
PROVIDERS: Visit Provider Internal Medicine
DX: E11.65 Type 2 diabetes mellitus with hyperglycemia (principal); F17.210 Nicotine dependence, cigarettes, uncomplicated; E66.9 Obesity, unspecified; Z68.31 Body mass index [BMI] 31.0-31.9, adult
CPT/HCPCS: 83036; 99204

== ENCOUNTER 2023-11-29 10:04 | Outpatient (REF) | payer OTHER, SELFPAY ==
[2023-11-29 13:23] LABS: MANUAL DIFF FLAG NO
[2023-11-29 13:35] LABS: Basophils Absolute Auto 0.1 X10*3/uL (0.0-0.2); Basophils Percent Auto 0.8 % (0-2); Eosinophils Absolute Auto 0.2 X10*3/uL (0.0-0.4); Eosinophils Percent Auto 2.7 % (0-4); Hematocrit 44.4 % (37.0-47.0); Hemoglobin 15.2 g/dl (12.0-16.0); Imm Gran Abs Auto 0.04 X10*3/uL (0.00-0.03); Imm Gran Pct Auto 0.5 % (0.0-0.4); Lymphocytes Absolute Auto 2.2 X10*3/uL (1.2-4.9); Mean Corpuscular HGB Conc 34.2 g/dl (31.0-35.0); Mean Corpuscular Hemoglobin 30.8 pg (27.0-33.0); Mean Corpuscular Volume 90.1 fL (80.0-98.0); Mean Platelet Volume 11.1 fL (9.4-12.3); Monocytes Absolute Auto 0.5 X10*3/uL (0.1-1.2); Monocytes Percent Auto 5.9 % (2-11); Neutrophils Absolute Auto 5.8 x10*3/uL (2.0-8.3); Neutrophils Percent Auto 65.1 % (45-73); Platelet Count 275 X10*3/uL (160-400); Red Blood Count 4.93 X10*6/uL (4.20-5.50); Red Cell Distribution Width 14.3 % (11.0-16.0); White Blood Count 8.8 X10*3/uL (4.8-10.8)
[2023-11-29 14:04] LABS: Creatinine Urine 31.88 mg/dL; Microalbum/Creatinine Ratio Ur 21.9 ug/mg cr (<30)
[2023-11-29 14:07] LABS: Alanine Aminotransferase 19 U/L (0-31); Albumin Level 4.4 g/dL (3.5-5.0); Alkaline Phosphatase 84 U/L (39-117); Anion Gap 15 (12-20); Aspartate Amino Transferase 12 U/L (5-31); Bilirubin Total 0.4 mg/dL (0.0-1.0); Blood Urea Nitrogen 12 mg/dL (9-16); Calcium 9.8 mg/dL (8.4-10.2); Carbon Dioxide 25 mmol/L (22-29); Chloride 104 mmol/L (96-108); Cholesterol 276 mg/dL (<200); Estimated Glomerular Filt Rate > 60; Glucose Fasting 202 mg/dL (60-99); HDL Cholesterol 51 mg/dL (>40); LDL Cholesterol Calculated 189 mg/dL (<100); Potassium 4.6 mmol/L (3.3-5.1); Sodium 139 mmol/L (135-145); Triglycerides 181 mg/dL (<150)
[2023-11-29 14:10] LABS: Vitamin D 25-OH Total 50.5 ng/mL (>30)
== END 2023-11-29 10:05 | disposition home or self-care (01) ==
LOC: HO.HMGCLDS 10:04
PROVIDERS: PCP Internal Medicine; Visit Provider Internal Medicine
DX: E11.65 Type 2 diabetes mellitus with hyperglycemia (principal); E66.9 Obesity, unspecified; F17.210 Nicotine dependence, cigarettes, uncomplicated; Z13.9 Encounter for screening, unspecified; Z78.0 Asymptomatic menopausal state
CPT/HCPCS: 36415; 80053; 80061; 82043; 82306; 82570; 85025

== ENCOUNTER 2023-12-23 14:20 | Outpatient (AMB) | payer OTHER, SELFPAY ==
--- NOTE | 2023-12-23 14:19 | A.OFFPC_ITS ---
Intake Visit Reasons: 1M TH F/U Allergies control pills Allergy (Unknown, Uncoded 12/23/23 14:39) DVT, R leg Medication List - Last Reconciled 12/23/23 by Geraldine Jackson MD metformin ER 500 mg PO QPM rosuvastatin 5 mg PO DAILY Tobacco use date assessed: 11/29/23 Dental Screening Dental Screen Date: 11/29/23 HPI 1M TH F/U HPI Details Telehealth visit made with 53-year-old lady here for follow-up after starting Chantix. She was able to tolerate a 0.5 mg dose on of the medication but once she started taking the 1 mg twice a day dosing she started experiencing vivid bad dreams and felt hungry all the time. Does not want to continue taking Chantix and would like to try using the nicotine patch instead. She states that she has tried nicotine patch in the past and was able to successfully quit for some time . She also was recently started on me tformin and rosuvastatin for diabetes mellitus and hyperlipidemia. Patient states that she has been taking metformin but was not given a prescription for rosuvastatin which was already sent to [facility]. Will send prescription afain. [facility] Medical History Mixed dyslipidemia Obesity (BMI 30.0-34.9) Diabetes mellitus with hyperglycemia Cigarette smoker motivated to quit Surgical History No history of previous surgery Family History Father Substance use disorder Social History Housing: Condominium Alcohol intake: unknown Patient Tobacco Use Status: Current everyday Tobacco user Tobacco use type: Cigarette e-Cigarette/Vaping Use: Never Used service: No Current occupational status: employed Cognitive needs: No Hearing needs: No Vision needs: Yes Questionnaire Thrive Questionnaire Date Thrive assessed: 11/29/23 JASVIR-7 AMB Questionnaire JASVIR-7 Date JASVIR - 7 assessed: 11/29/23 Source: Developed by Drs. Vijay Franco, Audelia Worthington, Long Santo and colleagues, with an educational sujit from [email or web address]. Review of Systems Const All systems reviewed & are unremarkable except as noted in HPI and below Reports no additional complaints Eyes Details: Seen at [facility] for her routine eye exam August 2023, per patient Reports no additional complaints ENT Reports no additional complaints Card Denies chest pain, Denies pedal edema, Denies irregular heart rhythm, Denies lightheadedness, Denies palpitations and Denies dyspnea Resp Denies chest congestion, Denies cough, Denies hemoptysis and Denies dyspnea GI Reports no additional complaints Reports no additional complaints Musc Reports no additional complaints Skin/Breast Denies breast pain, Denies breast mass and Denies rash Neuro Reports no additional complaints Psych Reports no additional complaints Endo Denies palpitations Physical exam (Primary Care) Tobacco/Smoking Status: Tobacco use Status Tobacco use date assessed 11/29/23 12/23/23 14:19 Patient Tobacco Use Status Current everyday Tobacco 12/23/23 14:19 Tobacco use type Cigarette 12/23/23 14:19 e-Cigarette/Vaping Use Never Used 12/23/23 14:19 Thrive Assessment: Date of Thrive Assessment Date Thrive assessed 11/29/23 12/23/23 14:19 Telehealth Telehealth Telehealth Platform: [employer] Location of provider rendering services: practice address Location of patient: address on file Patient Identification confirmed using: Name, : Yes Telehealth method: video Patient verbally consented to treatment: Yes Patient verbally consented to billing insurance company: Yes Patient informed of any privacy concerns related to visit: Yes Minutes spent on Phone/Video with Pt.: 15 Assessment and Plan Assessment & Plan (1) Cigarette smoker motivated to quit: Code(s): F17.210 - Nicotine dependence, cigarettes, uncomplicated Plan: Stopped varenicline. Discussed other options for smoking cessation with medications. Pt wishes to try Nicoderm patch. Pt advised to apply the nicotine patch 21 mg dose as directed , remove at bedtime. Discussed common side effects and strongly advised not to smoke while using the patch. If developes any adverse effects please call office. Call in 4 weeks to let me know if ready to go down on the next dose of 14 mg per patch .Discussed side effects including but not limited to local erythema, rash, diarrhea, and insomnia., , (2) Moderate cigarette smoker (10-19 per day): Code(s): F17.210 - Nicotine dependence, cigarettes, uncomplicated Plan: Stopped varenicline. Discussed other options for smoking cessation with medications. Pt wishes to try Nicoderm patch. Pt advised to apply the nicotine patch 21 mg dose as directed , remove at bedtime. Discussed common side effects and strongly advised not to smoke while using the patch. If developes any adverse effects please call office. Call in 4 weeks to let me know if ready to go down on the next dose of 14 mg per patch .Discussed side effects including but not limited to local erythema, rash, diarrhea, and insomnia., , (3) Diabetes mellitus with hyperglycemia: Code(s): E11.65 - Type 2 diabetes mellitus with hyperglycemia Plan: Continue metformin at the same dose, reinforced importance of following recommended diet and getting regular exercise. Repeat labs again in January 2024 prior to appointment (4) Mixed dyslipidemia: Code(s): E78.2 - Mixed hyperlipidemia Plan: Prescription for rosuvastatin 5 mg per tablet taken 1 tablet once a day again sent to [facility]. Reinforced importance of following a low-cholesterol diet and getting regular exercise, repeat another fasting lipid panel in January prior to appoint Orders: Orders Hemoglobin A1c 02/04/24 E11.65 - Type 2 diabetes mellitus with hyperglycemia, E66.9 - Obesity, unspecified, E78.2 - Mixed hyperlipidemia Alanine Aminotransferase 02/04/24 E11.65 - Type 2 diabetes mellitus with hyperglycemia, E66.9 - Obesity, unspecified, E78.2 - Mixed hyperlipidemia Aspartate Amino Transferase 02/04/24 E11.65 - Type 2 diabetes mellitus with hyperglycemia, E66.9 - Obesity, unspecified, E78.2 - Mixed hyperlipidemia Lipid Panel 02/04/24 E11.65 - Type 2 diabetes mellitus with hyperglycemia, E66.9 - Obesity, unspecified, E78.2 - Mixed hyperlipidemia Basic Metabolic Panel Fasting 02/04/24 E11.65 - Type 2 diabetes mellitus with hyperglycemia, E66.9 - Obesity, unspecified, E78.2 - Mixed hyperlipidemia Microalbumin, Random (w Creat) 02/04/24 E11.65 - Type 2 diabetes mellitus with hyperglycemia, E66.9 - Obesity, unspecified, E78.2 - Mixed hyperlipidemia Medications: New nicotine 1 patch transdermal DAILY 28 ea 0RF F17.210 - Nicotine dependence, cigarettes, uncomplicated Refilled rosuvastatin 5 mg PO DAILY 90 tabs 2RF E78.2 - Mixed hyperlipidemia Coding Level of Care Code Est Pt Level 4 (65151) Diagnoses Cigarette smoker motivated to quit F17.210 Moderate cigarette smoker (10-19 per day) F17.210 Diabetes mellitus with hyperglycemia E11.65 Mixed dyslipidemia E78.2
== END 2023-12-23 17:12 | disposition home or self-care (01) ==
LOC: HO.HMGC 14:20
PROVIDERS: PCP Internal Medicine; Visit Provider Internal Medicine
DX: F17.210 Nicotine dependence, cigarettes, uncomplicated (principal); E11.65 Type 2 diabetes mellitus with hyperglycemia; E78.2 Mixed hyperlipidemia
CPT/HCPCS: 99214

== ENCOUNTER 2024-02-08 08:00 | Outpatient (REF) | payer OTHER, SELFPAY ==
[2024-02-08 11:36] LABS: Estimated Average Glucose 183 mg/dL
[2024-02-08 11:49] LABS: Alanine Aminotransferase 15 U/L (0-31); Anion Gap 15 (12-20); Aspartate Amino Transferase 12 U/L (5-31); Blood Urea Nitrogen 14 mg/dL (9-16); Calcium 9.4 mg/dL (8.4-10.2); Carbon Dioxide 24 mmol/L (22-29); Chloride 103 mmol/L (96-108); Cholesterol 209 mg/dL (<200); Estimated Glomerular Filt Rate > 60; Glucose Fasting 198 mg/dL (60-99); HDL Cholesterol 43 mg/dL (>40); LDL Cholesterol Calculated 127 mg/dL (<100); Potassium 4.5 mmol/L (3.3-5.1); Sodium 137 mmol/L (135-145); Triglycerides 197 mg/dL (<150)
[2024-02-08 13:00] LABS: Creatinine Urine 38.71 mg/dL; Microalbum/Creatinine Ratio Ur 28.4 ug/mg cr (<30)
== END 2024-02-08 08:01 | disposition home or self-care (01) ==
LOC: HO.HMGCLDS 08:00
PROVIDERS: PCP Internal Medicine; Visit Provider Internal Medicine
DX: E11.65 Type 2 diabetes mellitus with hyperglycemia (principal); E78.2 Mixed hyperlipidemia; E66.9 Obesity, unspecified
CPT/HCPCS: 36415; 80048; 80061; 82043; 82570; 83036; 84450; 84460

== ENCOUNTER 2024-02-09 10:57 | Outpatient (AMB) | payer OTHER, SELFPAY ==
--- NOTE | 2024-02-09 11:21 | MHC.PC.OV ---
Vital Signs 02/09/24 11:23 Height 5 ft 8 in Weight 214 lb 6 oz BMI 32.6 BP 110/70 Blood Pressure Location Lt brachial Position Sitting Pulse 79 Pulse Source Pulse Oximeter Pulse Oximetry (%) 98 Oxygen Delivery Method Room Air Intake Visit Reasons: PE Intake Note: Patient here for physical exam. Allergies control pills Allergy (Unknown, Uncoded 05/22/24 01:52) DVT, R leg Medication List - Last Reconciled 02/09/24 by Geraldine Jackson MD metformin ER 500 mg PO QPM nicotine 1 patch transdermal DAILY rosuvastatin 5 mg PO DAILY Tobacco use date assessed: 02/09/24 Dental Screening Dental Screen Date: 11/29/23 HPI PE HPI Details 53-year-old lady here today for physical exam. She has mixed dyslipidemia currently on rosuvastatin 5 mg once a day, with latest lipids showing LDL not at goal of less than 100 mg/dL. She takes metformin ER 500 mg 1 at night with supper time for her diabetes mellitus. Her last hemoglobin A1c obtained this month was 8%, higher than last check. Urine microalbumin came back within normal limits. She goes to [facility], last eye exam 02/15/2023 with showed presence of retinal hemorrhage in right eye likely related to diabetes She has an appointment already scheduled for her screening mammogram, has not yet had a colon cancer screening but would like to get Cologuard testing instead of colonoscopy [facility] Medical History Mixed dyslipidemia Obesity (BMI 30.0-34.9) Diabetes mellitus with hyperglycemia Cigarette smoker motivated to quit Surgical History No history of previous surgery Family History Father Substance use disorder Social History Housing: Condominium Alcohol intake: unknown Patient Tobacco Use Status: Former Tobacco user (Quit 36 days currently on the past) Tobacco use type: Cigarette e-Cigarette/Vaping Use: Never Used service: No Current occupational status: employed Cognitive needs: No Hearing needs: No Vision needs: Yes Questionnaire PHQ-9 Over the last 2 weeks, how often have you been bothered by any of the following problems? Depression Screening Interpretation: Negative Depression Screening Done: Yes Source: Developed by Drs. Vjiay Franco, Audelia Worthington, Long Santo and colleagues, with an educational sujit from [employer]. Thrive Questionnaire Date Thrive assessed: 11/29/23 JASVIR-7 AMB Questionnaire JASVIR-7 Date JASVIR - 7 assessed: 11/29/23 Source: Developed by Drs. Vijay Franco, Audelia Worthington, Long Santo and colleagues, with an educational sujit from [employer]. Review of Systems Const All systems reviewed & are unremarkable except as noted in HPI and below Reports no additional complaints Eyes Details: Seen at [facility] for her routine eye exam August 2023, per patient Reports no additional complaints ENT Reports no additional complaints Card Denies chest pain, Denies pedal edema, Denies irregular heart rhythm, Denies lightheadedness, Denies palpitations and Denies dyspnea Resp Denies chest congestion, Denies cough, Denies hemoptysis and Denies dyspnea GI Reports no additional complaints Reports no additional complaints Musc Reports no additional complaints Skin/Breast Denies breast pain, Denies breast mass and Denies rash Neuro Reports no additional complaints Psych Reports no additional complaints Endo Denies palpitations Man/Lymph Reports no additional complaints Aller/Immun Reports no additional complaints Physical exam (Primary Care) Vital Signs: Last Vital Signs Pulse 79 02/09/24 11:23 BP 110/70 02/09/24 11:23 Pulse Ox 98 02/09/24 11:23 Oxygen Delivery Method Room Air 02/09/24 11:23 BMI result Body Mass Index 32.6 Tobacco/Smoking Status: Tobacco use Status Tobacco use date assessed 02/09/24 02/09/24 11:53 Patient Tobacco Use Status Former Tobacco user (Quit 36 02/09/24 11:53 days currently on the past) Tobacco use type Cigarette 02/09/24 11:23 e-Cigarette/Vaping Use Never Used 02/09/24 11:23 Depression Screening Interpretation: Negative Thrive Assessment: Date of Thrive Assessment Date Thrive assessed 11/29/23 02/09/24 11:23 Const General: comfortable, no acute distress and alert Orientation/consciousness: patient oriented x3 HENMT Ears: external ears normal, TM's normal bilaterally and EAC's normal General nose exam: Normal external nose present and No nasal discharge present Mouth: Normal oral and palatal mucosa present, oropharynx normal and moist mucous membranes Eyes General: appearance normal, both eyes and all related structures Conjunctivae: conjunctivae normal Sclerae: sclerae normal Pupils: Equal, round and reactive pupils present EOM: EOMs intact bilaterally Neck Neck: Yes full ROM, Yes no lymphadenopathy and Yes supple Chest Breast/axilla palpation: normal palpation of the breasts Resp Effort & Inspection: normal respiratory effort and able to speak in complete sentences Auscultation: clear to auscultation bilaterally Cardio Rate: regular rate Rhythm: regular rhythm Heart sounds: S1 normal heart sound present and S2 normal heart sound present GI Palpation (GI): Soft to palpation, nontender and no masses Auscultation: normal bowel sounds Back/Spine/Pelvis Back: No back tenderness Skin General skin exam: no rashes or lesions noted Neuro General: patient oriented x3, gait normal, tone normal, moves all extremities, Normal light touch and pain sensation and no focal motor deficits Cranial nerves: Yes CN's II-XII intact bilaterally and Yes Equal, round and reactive pupils present Cognition (Neuro): normal cognition Extrem General: Yes full ROM, Yes no joint enlargement, Yes no clubbing, cyanosis or edema and Yes no calf tenderness Psych Appearance: grossly normal and well kempt Mental Status: mental status grossly normal Speech and movement: Normal speech and movement present Affect: normal affect Attitude: cooperative Thought process: Normal thought process present Thought content: Normal thought content present Results Reviewed Results Reviewed: Name: Rosie Gastelum Age/Sex: 53/F : 1970 Unit#: [id number] Attend Dr: Geraldine Jackson MD Re02/08/24 Status: DEP [facility]F [facility] Disch: SPEC : [id number] ANTONIA: 02/08/24 STATUS: COMP REQ : [id number] RECD: 02/08/[address]: Geraldine Jackson MD COMP: 02/08/24 ENTERED: 02/08/[address]: ORDERED: Met Prof Fast, AST, ALT, Lipid Panel Test Result Flag Reference Sodium 137 135-145 mmol/L Potassium 4.5 3.3-5.1 mmol/L CL 103 96-108 mmol/L CO2 24 22-29 mmol/L Gap 15 12-20 BUN 14 9-16 mg/dL Creat 0.69 0.5-1.4 mg/dL EGFR > 60 NOTE: For -Thai individuals, multiply the result by 1.210. Chronic Kidney Disease: Estimated GFR < 60 mL/min/1.73m2 Severe Kidney Disease: Estimated GFR < 15 mL/min/1.73m2 FBS 198 H 60-99 mg/dL A fasting glucose of 126 mg/dl or greater on more than one occasion is considered diagnostic of diabetes. CA 9.4 8.4-10.2 mg/dL AST (GOT) 12 5-31 U/L ALT (GPT) 15 0-31 U/L Triglyceride 197 H <150 mg/dL Desirable Triglyceride: less than 150 mg/dL Borderline High Triglyceride 150-199 mg/dL High Triglyceride: 200-499 mg/dL Very High Triglyceride: greater than or equal to 5OO mg/dL Cholesterol 209 H <200 mg/dL Desirable Cholesterol: less than 200 mg/dL Borderline High Cholesterol: 200-239 mg/dL High Cholesterol: greater than 239 mg/dL LDL Calculated 127 H <100 mg/dL Desirable LDL: less than 100 mg/dL Near Optimal/Above Optimal LDL: 110-129 mg/dL Borderline High LDL: 130-159 mg/dL High LDL: 160-189 mg/dL Very High LDL: greater than or equal to 190 mg/dL HDL 43 >40 mg/dL Desirable HDL: greater than 40 mg/dL Note: This HDL assay may give artificially low results in patients with liver disease. Assessment and Plan Assessment & Plan (1) Annual visit for general adult medical examination with abnormal findings: Code(s): Z00.01 - Encounter for general adult medical examination with abnormal findings Plan: Reviewed recent fasting lab results with patient. Recommended dental visit every 6 months and regular eye exams, every year. . Take adequate calcium in diet and vitamin-D 3 at 2000 IU per cap once a day, in addition to weight-bearing exercises to help maintain good muscle tone and weight control. Instructed to do self-breast exam, and continue to get yearly mammogram. Immunization information provided: Yearly flu vaccine, shingles vaccine starting at age 50, at age 65 to start getting Prevnar 13 followed 1 year later by Pneumovax 23, with patient declined getting any vaccines at present. Cologuard ordered (2) Screening for malignant neoplasm of cervix: Code(s): Z12.4 - Encounter for screening for malignant neoplasm of cervix Plan: Referred to [facility] for her routine Pap and pelvic exam. (3) Cigarette smoker motivated to quit: Code(s): F17.210 - Nicotine dependence, cigarettes, uncomplicated Plan: Prescription sent for nicotine patches 14 mg per patch to apply to non hairy areas on upper chest or upper arms, rotate sites, but it on 1st thing in the morning and removed at night before going to bed. Do not smoke when using the patch. Possible adverse effects from patch discussed with patient Follow-up in 4 weeks after starting (4) Diabetes mellitus with hyperglycemia: Code(s): E11.65 - Type 2 diabetes mellitus with hyperglycemia Plan: Hemoglobin A1c at today's visit is 8%. Increase metformin dose to 500 mg twice a day. Refill sent. Reinforced importance of following a healthy diet and getting regular exercise. Up-to-date with her diabetes retinopathy screening, goes to [facility] (5) Obesity (BMI 30.0-34.9): Code(s): E66.9 - Obesity, unspecified Plan: Discussed need to increase activity and wt reduction. Recommended focusing on improving your health instead of dieting. : Eat Mediterranean diet, limit foods high in fat, sugar, and calories, eat slowly, pay attention to portion sizes, plan your meals ahead of time, start regular physical activity 150 minutes of moderate intensity exercise or 90 minutes/week of vigorous exercise and increase water intake. (6) Mixed dyslipidemia: Code(s): E78.2 - Mixed hyperlipidemia Plan: Fasting lipid panel showed elevated LDL cholesterol, continue rosuvastatin 5 mg daily, reinforced importance of following a low-cholesterol diet and getting regular exercise. Orders: Orders Hemoglobin A1c 05/13/24 E78.2 - Mixed hyperlipidemia, E66.9 - Obesity, unspecified, E11.65 - Type 2 diabetes mellitus with hyperglycemia, F17.210 - Nicotine dependence, cigarettes, uncomplicated Basic Metabolic Panel Fasting 05/13/24 E78.2 - Mixed hyperlipidemia, E66.9 - Obesity, unspecified, E11.65 - Type 2 diabetes mellitus with hyperglycemia, F17.210 - Nicotine dependence, cigarettes, uncomplicated MM tomosynthesis screening BI 02/09/24 Z12.31 - Encounter for screening mammogram for malignant neoplasm of breast Alanine Aminotransferase 05/13/24 E78.2 - Mixed hyperlipidemia, E66.9 - Obesity, unspecified, E11.65 - Type 2 diabetes mellitus with hyperglycemia, F17.210 - Nicotine dependence, cigarettes, uncomplicated Aspartate Amino Transferase 05/13/24 E78.2 - Mixed hyperlipidemia, E66.9 - Obesity, unspecified, E11.65 - Type 2 diabetes mellitus with hyperglycemia, F17.210 - Nicotine dependence, cigarettes, uncomplicated Lipid Panel 05/13/24 E78.2 - Mixed hyperlipidemia, E66.9 - Obesity, unspecified, E11.65 - Type 2 diabetes mellitus with hyperglycemia, F17.210 - Nicotine dependence, cigarettes, uncomplicated Referrals Cologuard Test Z12.11 - Encounter for screening for malignant neoplasm of colon, Z12.12 - Encounter for screening for malignant neoplasm of rectum [employer] Referral Z12.4 - Encounter for screening for malignant neoplasm of cervix Medications: Changed From nicotine 1 patch transdermal DAILY 28 ea 0RF F17.210 - Nicotine dependence, cigarettes, uncomplicated To nicotine 1 patch transdermal DAILY 28 ea 0RF F17.210 - Nicotine dependence, cigarettes, uncomplicated From metformin ER 500 mg PO QPM 90 tabs 1RF E11.65 - Type 2 diabetes mellitus with hyperglycemia, E66.9 - Obesity, unspecified To metformin ER 500 mg PO BID 90 tabs 2RF E11.65 - Type 2 diabetes mellitus with hyperglycemia, E66.9 - Obesity, unspecified Coding Level of Care Code Est Pt Prev Care 40-64y(22744) Diagnoses Annual visit for general adult medical examination with abnormal findings Z00.01 Screening for malignant neoplasm of cervix Z12.4 Cigarette smoker motivated to quit F17.210 Diabetes mellitus with hyperglycemia E11.65 Obesity (BMI 30.0-34.9) E66.9 Mixed dyslipidemia E78.2
[2024-02-09 11:23] VITALS: BP 110/70; PULSE 79; O2SAT 98; BMI 32.6
== END 2024-02-09 12:09 | disposition home or self-care (01) ==
PROVIDERS: PCP Internal Medicine; Visit Provider Internal Medicine
DX: Z00.01 Encounter for general adult medical examination with abnormal findings (principal); Z12.4 Encounter for screening for malignant neoplasm of cervix; F17.210 Nicotine dependence, cigarettes, uncomplicated; E11.65 Type 2 diabetes mellitus with hyperglycemia; E66.9 Obesity, unspecified; E78.2 Mixed hyperlipidemia
CPT/HCPCS: 99499

== ENCOUNTER 2024-03-16 07:56 | Outpatient (REF) | payer OTHER, SELFPAY | END 2024-03-16 07:57 | disposition home or self-care (01) | LOC: HO.MAMMO 07:56 | PROVIDERS: PCP Internal Medicine; Visit Provider Internal Medicine | DX: Z12.31 Encounter for screening mammogram for malignant neoplasm of breast (principal) | CPT/HCPCS: 77063; 77067 ==

== ENCOUNTER → 2024-03-16 08:00 | Outpatient (BNV) | payer OTHER, SELFPAY | PROVIDERS: PCP Internal Medicine; Visit Provider Radiology Diagnostic Radiology | DX: Z12.31 Encounter for screening mammogram for malignant neoplasm of breast (principal) | CPT/HCPCS: 77063; 77067 ==

== ENCOUNTER 2024-04-11 11:02 | Emergency (ER) | payer OTHER, SELFPAY ==
--- NOTE | ~2024-04-11 | US_ITS ---
EXAMINATION: US TRIPLEX LOWER EXTREMITY, RIGHT CLINICAL INFORMATION: Redness COMPARISON: None available. TECHNIQUE: Color-flow triplex imaging with spectral analysis and compression Doppler were performed on the right lower extremity. FINDINGS: Respiratory variation, normal compression and augmented flow are noted throughout the confidently visualized vessels of the right lower extremity. The visualized common femoral vein, superficial femoral vein, profunda femoral vein, popliteal vein and midcalf posterior tibial venous segments show no evidence of deep venous thrombosis. The peroneal vein is not well seen. The greater saphenous vein appears noncompressible. This was at the level of the calf. This correlates well with patient's area of pain. Other varicosities in this area were observed. There is no Underwood's cyst. US/US venous duplex LE RT IMPRESSION: Superficial thrombophlebitis in the calf but no evidence for DVT. Electronically signed by: Ron Paredes MD 04/11/2024 04:13 PM EDT
[2024-04-11 11:36] VITALS: BP 146/62; PULSE 92; RESP 18; TEMP 36.6; O2SAT 96; BMI 33.1
--- NOTE | 2024-04-11 11:41 | ED.GENADULT ---
HPI - General Adult General Chief complaint: General Medical Stated complaint: r leg cecilia Time Seen by Provider: 04/11/24 17:46 Source: patient, RN notes reviewed and old records reviewed Mode of arrival: ambulatory Limitations: no limitations History of Present Illness ED Provider: Olimpia VALDOVINOS narrative: 53-year-old female presents for evaluation of pain and redness to her right leg. Patient reports that she has streaking redness up her right leg She had noticed a small area redness 3 days ago. She states the area has improved but now she has streaking redness up the right lower leg. She states that she can walk without any pain If she pushes on the area she has increased pain Denies any fevers, chills, or trauma to the area Related Data Previous Rx's ?Medication ?Instructions ?Recorded rosuvastatin 5 mg tablet 5 mg PO DAILY #90 tabs 12/23/23 metformin 500 mg tablet,extended 500 mg PO BID #90 tabs 02/09/24 release 24 hr nicotine 14 mg/24 hr daily 1 patch transdermal DAILY #28 ea 02/09/24 transdermal patch Allergies Allergy/AdvReac Type Severity Reaction Status Date / Time control pills Allergy Unknown DVT, R leg Uncoded 04/11/24 11:39 Review of Systems Constitutional: Constitutional: Denies body ache(s), Denies chills, Denies fever(s) and Denies frequent falls Eyes: Eyes: Denies blurry vision ENT: Denies dysphagia and Denies vertigo Cardiovascular: Cardiovascular: Denies chest pain and Denies dyspnea Respiratory: Respiratory: Denies cough and Denies dyspnea Gastrointestinal: Gastrointestinal: Denies abdominal pain and Denies dysphagia Integumentary/Breasts: Skin/Breast: Reports erythema and Denies wounds Neurologic: Denies vertigo and Denies frequent falls [facility] Past Medical History Medical History Mixed dyslipidemia Obesity (BMI 30.0-34.9) Diabetes mellitus with hyperglycemia Cigarette smoker motivated to quit Surgical History No history of previous surgery Family History Family History Father Substance use disorder Social History Social History Housing: Condominium Alcohol intake: unknown Patient Tobacco Use Status: Former Tobacco user (Quit 36 days currently on the past) Tobacco use type: Cigarette e-Cigarette/Vaping Use: Never Used Advance Directives: No Do you have a plan to hurt others: No Plan service: No Current occupational status: employed Cognitive needs: No Hearing needs: No Vision needs: Yes Physical Exam ED Vital Signs: Vital Signs - 24 hr 04/11/24 11:36 Temperature 97.8 F Pulse Rate 92 Respiratory Rate 18 Blood Pressure 146/62 H Pulse Oximetry 96 Oxygen Delivery Method Room Air BMI result Body Mass Index 33.1 Const General: healthy appearing, comfortable, no acute distress, alert and awake Nutritional Appearance: well nourished Orientation/consciousness: patient oriented x3 HENMT Head: Yes normocephalic and Yes atraumatic Eyes Eyelids: Yes eyelids normal Conjunctivae: conjunctivae normal Sclerae: sclerae normal Corneas: corneas normal Pupils: Equal, round and reactive pupils present EOM: EOMs intact bilaterally Neck Neck: Yes full ROM Resp Effort & Inspection: normal respiratory effort, able to speak in complete sentences and not labored Cardio Rate: regular rate Rhythm: regular rhythm Skin Other: Faint erythema to the right lower extremity at the mid calf. This is extending in a linear erythematous streak up the medial aspect of the right leg about 6 cm. There is no increased warmth,. No fluctuance or open wounds General skin exam: elasticity normal Neuro General: patient oriented x3 Cranial nerves: Yes Equal, round and reactive pupils present and Yes Bilaterally intact EOM present Cognition (Neuro): normal cognition Extrem Other: Moving all extremities well without any obvious deformities Course Course Course Narrative: RME, this is a rapid medical exam performed by Trevor Doan please refer to primary provider for complete H&P- 53-year-old female presents for evaluation of redness, pain to the right lower leg. She reports that she had initial area of redness a few days ago. Triple hydrocortisone in the area. She had not has streaking redness going up the medial aspect of the right calf. She reports general malaise today but no fevers or chills. She reports a remote history of DVT in the left lower extremity while on control when she was 16. She is not anticoagulated Reevaluation(s) Reevaluation #1: Discussed ultrasound results with the patient as well as lab results. Patient be discharged with symptomatic treatment of superficial thrombophlebitis. Will encourage baby aspirin given the history of previous DVT Time: 18:47 Medical Decision Making Medical Decision Making [facility] Narrative: 53-year-old female presents for evaluation of right leg pain. She has a linear streak of redness of the leg. She reports a history of DVT when she was 16 while on control. Denies any trauma, fevers, chills. Plan for basic labs to evaluate for lymphangitis with blood cultures obtained. Ultrasound of the right lower extremity to rule out DVT Differential Diagnosis Differential Diagnoses: The differential diagnosis associated with the presentation includes DVT Cellulitis Leg pain Lymphangitis Thrombophlebitis Lab Data [facility] Lab Attestation statement: I reviewed the patient's lab results. No leukocytosis or anemia. Normal platelet count. No electrolyte abnormalities. Glucose elevated to 266. No evidence of DKA 04/11/24 12:51 04/11/24 12:51 Labs: Lab Results 04/11/24 04/11/24 Range/Units 12:51 12:52 WBC 8.5 (4.8-10.8) X10*3/uL RBC 4.82 (4.20-5.50) X10*6/uL Hgb 15.3 (12.0-16.0) g/dl Hct 43.0 (37.0-47.0) % MCV 89.2 (80.0-98.0) fL MCH 31.7 (27.0-33.0) pg MCHC 35.6 H (31.0-35.0) g/dl RDW 12.9 (11.0-16.0) % Plt Count 219 (160-400) X10*3/uL MPV 10.1 (9.4-12.3) fL Immature Gran % (Auto) 0.6 H (0.0-0.4) % Neut % (Auto) 62.7 (45-73) % Lymph % (Auto) 27.6 (20-40) % Granite % (Auto) 6.7 (2-11) % Eos % (Auto) 1.8 (0-4) % Baso % (Auto) 0.6 (0-2) % Lymph # (Auto) 2.3 (1.2-4.9) X10*3/uL Granite # (Auto) 0.6 (0.1-1.2) X10*3/uL Eos # (Auto) 0.2 (0.0-0.4) X10*3/uL Baso # (Auto) 0.1 (0.0-0.2) X10*3/uL Abs Immat Gran (auto) 0.05 H (0.00-0.03) X10*3/uL Absolute Neuts (auto) 5.3 (2.0-8.3) x10*3/uL Absolute Nucleated RBC 0.000 (0.0-0.012) X10*3/uL Nucleated RBC % (auto) 0.0 (0.0-0.2) /100WBC PT 10.3 L (11.1-13.3) SEC INR 0.8 L (0.9-1.1) Sodium 135 (135-145) mmol/L Potassium 4.6 (3.3-5.1) mmol/L Chloride 101 (96-108) mmol/L Carbon Dioxide 26 (22-29) mmol/L Anion Gap 13 (12-20) BUN 12 (9-16) mg/dL Creatinine 0.72 (0.5-1.4) mg/dL Estim Creat Clear Calc 108.4 Estimated GFR > 60 Random Glucose 266 H (60-115) mg/dL Lactic Acid 1.8 (0.5-2.0) mmol/L Calcium 10.1 D (8.4-10.2) mg/dL Total Bilirubin 0.4 (0.0-1.0) mg/dL AST 10 (5-31) U/L ALT 22 (0-31) U/L Alkaline Phosphatase 97 (39-117) U/L Total Protein 7.8 (6.5-8.0) g/dL Albumin 4.5 (3.5-5.0) g/dL Lipase 33 (8-78) U/L Radiology Impression Discussion of test interpretation with radiology: I have reviewed the radiologist's reading. Radiologist Impression: US/US venous duplex LE RT IMPRESSION: Superficial thrombophlebitis in the calf but no evidence for DVT. Electronically signed by: Ron Paredes MD 04/11/2024 04:13 PM EDT Discharge Plan Discharge Clinical Impression: Superficial thrombophlebitis Patient Disposition: Home, Self-Care Instructions: Superficial Thrombophlebitis (ED) Additional Instructions: Your blood work was reassuring today. Your ultrasound showed superficial thrombophlebitis but no evidence of DVT or blood clots This is inflammation in the superficial vessels in your leg causing the pain and redness You may use ibuprofen, Aleve, a baby aspirin to help with the pain Warm compresses can also help Prescriptions: No Action rosuvastatin 5 mg tablet 5 mg PO DAILY Qty: 90 2RF metformin 500 mg tablet extended release 24 hr 500 mg PO BID Qty: 90 2RF nicotine 14 mg/24 hr patch 24 hour 1 patch transdermal DAILY Qty: 28 0RF Discharge Date/Time: 04/11/24 18:32 Print Language: Chinese
[2024-04-11 12:58] LABS: MANUAL DIFF FLAG NO
[2024-04-11 12:59] LABS: Basophils Absolute Auto 0.1 X10*3/uL (0.0-0.2); Basophils Percent Auto 0.6 % (0-2); Eosinophils Absolute Auto 0.2 X10*3/uL (0.0-0.4); Eosinophils Percent Auto 1.8 % (0-4); Hemoglobin 15.3 g/dl (12.0-16.0); Imm Gran Abs Auto 0.05 X10*3/uL (0.00-0.03); Imm Gran Pct Auto 0.6 % (0.0-0.4); Lymphocytes Absolute Auto 2.3 X10*3/uL (1.2-4.9); Lymphocytes Percent Auto 27.6 % (20-40); Mean Corpuscular HGB Conc 35.6 g/dl (31.0-35.0); Mean Corpuscular Hemoglobin 31.7 pg (27.0-33.0); Mean Corpuscular Volume 89.2 fL (80.0-98.0); Mean Platelet Volume 10.1 fL (9.4-12.3); Monocytes Absolute Auto 0.6 X10*3/uL (0.1-1.2); Monocytes Percent Auto 6.7 % (2-11); Neutrophils Absolute Auto 5.3 x10*3/uL (2.0-8.3); Neutrophils Percent Auto 62.7 % (45-73); Platelet Count 219 X10*3/uL (160-400); Red Blood Count 4.82 X10*6/uL (4.20-5.50); Red Cell Distribution Width 12.9 % (11.0-16.0); White Blood Count 8.5 X10*3/uL (4.8-10.8)
[2024-04-11 13:09] LABS: INTERNATIONAL NORM RATIO 0.8 (0.9-1.1); Prothrombin Time 10.3 SEC (11.1-13.3)
[2024-04-11 13:12] LABS: Lactic Acid 1.8 mmol/L (0.5-2.0)
[2024-04-11 13:16] LABS: Alanine Aminotransferase 22 U/L (0-31); Albumin Level 4.5 g/dL (3.5-5.0); Alkaline Phosphatase 97 U/L (39-117); Anion Gap 13 (12-20); Aspartate Amino Transferase 10 U/L (5-31); Bilirubin Total 0.4 mg/dL (0.0-1.0); Blood Urea Nitrogen 12 mg/dL (9-16); Calcium 10.1 mg/dL (8.4-10.2); Carbon Dioxide 26 mmol/L (22-29); Chloride 101 mmol/L (96-108); Creatinine Clr Calc Pharmacy 108.4; Estimated Glomerular Filt Rate > 60; Glucose Random 266 mg/dL (60-115); Lipase 33 U/L (8-78); Potassium 4.6 mmol/L (3.3-5.1); Sodium 135 mmol/L (135-145); Total Protein 7.8 g/dL (6.5-8.0)
--- NOTE | 2024-04-11 18:32 | PC.NURSE ---
Patient discharged by provider
== END 2024-04-11 18:32 | disposition home or self-care (01) ==
PROVIDERS: Physician Assistant; Emergency Provider Emergency Medicine; PCP Internal Medicine
DX: I80.3 Phlebitis and thrombophlebitis of lower extremities, unspecified (principal); M79.661 Pain in right lower leg; E11.9 Type 2 diabetes mellitus without complications; E78.5 Hyperlipidemia, unspecified; Z79.899 Other long term (current) drug therapy
CPT/HCPCS: 36415; 80053; 83605; 83690; 85025; 85610; 87040; 93971; 99281; 99284

== ENCOUNTER 2024-07-23 09:48 | Outpatient (REF) | payer OTHER, SELFPAY ==
[2024-07-26 08:14] LABS: TS Negative Control Passed; TS Panel A 0; TS Panel B 0; TS Positive Control Passed; TSpotTB Negative (Negative)
== END 2024-07-23 09:49 | disposition home or self-care (01) ==
LOC: HO.HMGCLDS 09:48
PROVIDERS: PCP Internal Medicine; Visit Provider Internal Medicine
DX: Z11.1 Encounter for screening for respiratory tuberculosis (principal)
CPT/HCPCS: 36415; 86481

== ENCOUNTER 2024-11-07 06:55 | Outpatient (REF) | payer OTHER, SELFPAY ==
[2024-11-07 10:38] LABS: Estimated Average Glucose 306 mg/dL; Hemoglobin A1C 458.0236 umol/L; Hemoglobin A1c % 12.3 % (<6.0); Total Hemoglobin (HGBA1C) 4110.3667 umol/L
[2024-11-07 10:52] LABS: Alanine Aminotransferase 12 U/L (0-31); Anion Gap 13 (12-20); Aspartate Amino Transferase 18 U/L (5-31); Blood Urea Nitrogen 14 mg/dL (9-16); Calcium 9.8 mg/dL (8.4-10.2); Carbon Dioxide 25 mmol/L (22-29); Chloride 104 mmol/L (96-108); Cholesterol 201 mg/dL (<200); Estimated Glomerular Filt Rate > 60; Glucose Fasting 313 mg/dL (60-99); HDL Cholesterol 42 mg/dL (>40); LDL Cholesterol Calculated 110 mg/dL (<100); Potassium 4.5 mmol/L (3.3-5.1); Sodium 137 mmol/L (135-145); Triglycerides 249 mg/dL (<150)
[2024-11-07 11:42] LABS: Creatinine Urine 43.54 mg/dL; Microalbum/Creatinine Ratio Ur 43.6 ug/mg cr (<30)
== END 2024-11-07 06:56 | disposition home or self-care (01) ==
LOC: HO.HMGCLDS 06:55
PROVIDERS: PCP Internal Medicine; Visit Provider Internal Medicine
DX: E78.2 Mixed hyperlipidemia (principal); E66.9 Obesity, unspecified; E11.65 Type 2 diabetes mellitus with hyperglycemia
CPT/HCPCS: 36415; 80048; 80061; 82043; 82306; 82570; 83036; 84450; 84460

== ENCOUNTER 2024-11-13 13:29 | Outpatient (AMB) | payer OTHER, SELFPAY ==
--- NOTE | 2024-11-13 13:38 | MHC.PC.OV ---
Vital Signs 11/13/24 13:39 Height 5 ft 8 in Weight 209 lb BMI 31.8 BP 124/80 Blood Pressure Location Lt brachial Position Sitting Respiration 17 Pulse 82 Pulse Source Pulse Oximeter Temp 98.1 F Temp Source Oral Pulse Oximetry (%) 97 Oxygen Delivery Method Room Air Intake Visit Reasons: diabetes Intake Note: Pt is here for her f/u DM Allergies control pills Allergy (Unknown, Uncoded 11/13/24 13:57) DVT, R leg Medication List - Last Reconciled 11/13/24 by Geraldine Jackson MD metformin ER 500 mg PO BID rosuvastatin 5 mg PO DAILY Tobacco use date assessed: 11/13/24 Dental Screening Dental Screen Date: 11/13/24 Did you have a dental visit in the last 12 months?: Yes Did you have a dental problem in the last 6 months where you did not have access to dental care?: Yes Was dental information given to patient?: Patient has dentist HPI diabetes HPI Details 54-year-old lady with diabetes mellitus, hyperlipidemia and obesity, here today for her follow-up. Patient states that she has been taking her medications, has been exercising but states that she has been eating more bedtime snacks ever since she stopped smoking several months ago. She states that she has been checking her blood sugar at home and it has been running still in the high 200s. Latest fasting labs showed elevated LDL cholesterol, at 110 mg/dL and hemoglobin A1c frederick from 8% in January of 2024 to 12.3% today. She has been compliant with taking her metformin dose of 500 mg 1 tablet twice a day and takes rosuvastatin 5 mg daily. PFSH Medical History Type 2 diabetes mellitus with microalbuminuria Mixed dyslipidemia Obesity (BMI 30.0-34.9) Diabetes mellitus with hyperglycemia Cigarette smoker motivated to quit Surgical History No history of previous surgery Family History Father Substance use disorder Social [facility] Alcohol intake: unknown Patient Tobacco Use Status: Former Tobacco user (Quit 36 days currently on the past) Tobacco use type: Cigarette e-Cigarette/Vaping Use: Never Used service: No Current occupational status: employed Cognitive needs: No Hearing needs: No Vision needs: Yes Questionnaire PHQ-9 Over the last 2 weeks, how often have you been bothered by any of the following problems? 1. Little interest or pleasure in doing things: not at all 2. Feeling down, depressed, or hopeless: not at all 3. Trouble falling or staying asleep, or sleeping too much: not at all 4. Feeling tired or having little energy: more than half the days 5. Poor appetite or overeating: several days 6. Feeling bad about yourself - or that you are a failure or have let yourself or your family down: several days 7. Trouble concentrating on things, such as reading the newspaper or watching television: several days 8. Moving or speaking so slowly that other people could have noticed. Or the opposite - being so fidgety or restless that you have been moving around a lot more than usual: not at all 9. Thoughts that you would be better off or of hurting yourself in some way: not at all Total score: 5 Depression Screening Interpretation: Negative Depression Screening Done: Yes 68504 - PHQ-9 Billing: Yes Source: Developed by Drs. Vijay Franco, Audelia Worthington, Long Santo and colleagues, with an educational sujit from [employer]. Thrive Questionnaire Date Thrive assessed: 11/13/24 I am a: Patient What is your living situation today?: I have a steady place to live Within the past 12 months, did the food you bought not last and you didn't have the money to get more?: Never true Within the past 12 months, did you worry whether your food would run out before you got money to buy more?: Never true Do you have trouble paying for medicines?: No Do you have trouble getting transportation to medical appointments?: No Do you have trouble paying your heating and electricity bill?: No Do you have trouble taking care of your child, family member or friend?: No Do you have trouble with day-to-day activities such as bathing, preparing meals, shopping, managing finances, etc.?: No Are you currently unemployed and looking for a job?: No Are you interested in more education?: No Please select the resources that you would like help with: None Currently or been in a relationship where the following occur: No concerns reported THRIVE Score: 0 AUDIT C Alcohol Use Questionnaire (AUDIT-C) 1. How often do you have a drink containing alcohol?: Monthly or less 2. How many drinks containing alcohol do you have on a typical day when you are drinking?: 1 or 2 3. How often do you have six or more drinks on one occasion?: Never Total Score: 1 JASVIR-7 AMB Questionnaire JASVIR-7 Date JASVIR - 7 assessed: 11/13/24 Feeling nervous, anxious, or on edge: 0 = Not at all Not being able to stop or control worryin = Not at all Worrying too much about different things: 0 = Not at all Trouble relaxin = Not at all Being so restless that it is hard to sit still: 0 = Not at all Becoming easily annoyed or irritable: 0 = Not at all Feeling afraid as if something awful might happen: 0 = Not at all Total JASVIR-7 score (0-4 normal; 5-9 mild; 10-14 moderate; 15-21 severe): 0 Source: Developed by Drs. Vijay Franco, Audelia Worthington, Long Santo and colleagues, with an educational sujit from [employer]. JASVIR-7 Assessment Billing JASVIR-7 Assessment Tool: JASVIR-7 Assessment 44944 Review of Systems Const Reports as per HPI Eyes Details: Goes to [facility] for her routine eye exam, states that she already went for this year's eye exam, will request copy of results. Reports no additional complaints ENT Reports no additional complaints Card Denies chest pain, Denies pedal edema, Denies irregular heart rhythm, Denies lightheadedness, Denies palpitations and Denies dyspnea Resp Denies chest congestion, Denies cough, Denies hemoptysis and Denies dyspnea GI Reports no additional complaints Reports as per HPI Musc Reports no additional complaints Skin/Breast Denies breast pain, Denies breast mass and Denies rash Neuro Reports no additional complaints Psych Reports no additional complaints Endo Reports as per HPI, Reports polyphagia, Reports polydipsia and Denies palpitations Man/Lymph Reports no additional complaints Aller/Immun Reports no additional complaints Physical exam (Primary Care) Vital Signs: Last Vital Signs Temp 98.1 F 11/13/24 13:39 Pulse 82 03/25/25 13:39 Resp 17 11/13/24 13:39 BP 124/80 11/13/24 13:39 Pulse Ox 97 11/13/24 13:39 Oxygen Delivery Method Room Air 11/13/24 13:39 BMI result Body Mass Index 31.8 Tobacco/Smoking Status: Tobacco use Status Tobacco use date assessed 11/13/24 11/13/24 13:46 Patient Tobacco Use Status Former Tobacco user (Quit 36 11/13/24 13:40 days currently on the past) Tobacco use type Cigarette 11/13/24 13:40 e-Cigarette/Vaping Use Never Used 11/13/24 13:40 PHQ-9: PHQ-9 Score PHQ-9: Total score 7 11/13/24 13:55 Depression Screening Interpretation: Negative Thrive Assessment: Date of Thrive Assessment Date Thrive assessed 11/13/24 11/13/24 13:40 Currently or been in a relationship where the following occur: No concerns reported Const General: no acute distress and alert Orientation/consciousness: patient oriented x3 HENMT Ears: external ears normal General nose exam: Normal external nose present and No nasal discharge present Mouth: Normal oral and palatal mucosa present, oropharynx normal and moist mucous membranes Eyes General: appearance normal, both eyes and all related structures Pupils: Equal, round and reactive pupils present Neck Neck: Yes full ROM, Yes no lymphadenopathy and Yes supple Resp Effort & Inspection: normal respiratory effort and able to speak in complete sentences Auscultation: clear to auscultation bilaterally Cardio Rate: regular rate Rhythm: regular rhythm Heart sounds: S1 normal heart sound present and S2 normal heart sound present GI Palpation (GI): Soft to palpation, nontender and no masses Auscultation: normal bowel sounds Skin General skin exam: no rashes or lesions noted Neuro General: patient oriented x3, gait normal, tone normal, moves all extremities, Normal light touch and pain sensation and no focal motor deficits Cranial nerves: Yes CN's II-XII intact bilaterally and Yes Equal, round and reactive pupils present Cognition (Neuro): normal cognition Extrem General: Yes full ROM, Yes no joint enlargement, Yes no clubbing, cyanosis or edema and Yes no calf tenderness Psych Appearance: grossly normal and well kempt Mental Status: mental status grossly normal Speech and movement: Normal speech and movement present Affect: normal affect Results Reviewed Results Reviewed: rupesh: Rosie Gastelum Age/Sex: 54/F : 1970 Unit#: [id number] Attend Dr: Geraldine Jackson MD Re11/07/24 Status: DEP [facility] Disch: SPEC : [id number] ANTONIA: 11/07/24 STATUS: COMP REQ : [id number] RECD: 11/07/24-[address]: Geraldine Jackson MD COMP: 11/07/24 ENTERED: 11/07/[address]: ORDERED: Met Prof Fast, AST, ALT, Lipid Panel, Vitamin D 25-OH Test Result Flag Reference Sodium 137 135-145 mmol/L Potassium 4.5 3.3-5.1 mmol/L CL 104 96-108 mmol/L CO2 25 22-29 mmol/L Gap 13 12-20 BUN 14 9-16 mg/dL Creat 0.69 0.5-1.4 mg/dL eGFR > 60 Chronic Kidney Disease: Estimated GFR < 60 mL/min/1.73m2 Severe Kidney Disease: Estimated GFR < 15 mL/min/1.73m2 FBS 313 H 60-99 mg/dL A fasting glucose of 126 mg/dl or greater on more than one occasion is considered diagnostic of diabetes. CA 9.8 8.4-10.2 mg/dL AST (GOT) 18 5-31 U/L ALT (GPT) 12 0-31 U/L Triglyceride 249 H <150 mg/dL Desirable Triglyceride: less than 150 mg/dL Borderline High Triglyceride 150-199 mg/dL High Triglyceride: 200-499 mg/dL Very High Triglyceride: greater than or equal to 5OO mg/dL Cholesterol 201 H <200 mg/dL Desirable Cholesterol: less than 200 mg/dL Borderline High Cholesterol: 200-239 mg/dL High Cholesterol: greater than 239 mg/dL LDL Calculated 110 H <100 mg/dL Desirable LDL: less than 100 mg/dL Near Optimal/Above Optimal LDL: 110-129 mg/dL Borderline High LDL: 130-159 mg/dL High LDL: 160-189 mg/dL Very High LDL: greater than or equal to 190 mg/dL HDL 42 >40 mg/dL Desirable HDL: greater than 40 mg/dL Note: This HDL assay may give artificially low results in patients with liver disease. Vitamin D 25-OH 55.0 >30 ng/mL Health Based Reference Values* < 20 ng/mL Deficient 20-30 ng/mL Insufficient > 30 ng/mL Sufficient Laboratory Tests 02/08/24 11/07/24 08:02 06:59 Estimat Average Glucose 183 306 Hemoglobin A1c % 8.0 H 12.3 H Urine Creatinine 38.71 43.54 Urine Microalbumin 11.0 19.0 Microalb/Creat Ratio 28.4 43.6 H Coding Level of Care Code Est Pt Level 4 (71079) Complex EM visit Add On G2211 Diagnoses Mixed dyslipidemia E78.2 Obesity (BMI 30.0-34.9) E66.9 Type 2 diabetes mellitus with hyperglycemia, without long-term current use of insulin E11.65 Diabetes mellitus type: type 2 Diabetes mellitus care home insulin use: without middle or intermediate school principal use Type 2 diabetes mellitus with microalbuminuria E11.29; R80.9 Additional Codes PHQ-9 - 43037 - PHQ-9 Billing: Yes ([id number]) JASVIR-7 Assessment Billing - JASVIR-7 Assessment Tool: JASVIR-7 Assessment 54191 ([id number]) Assessment & Plan Assessment & Plan (1) Mixed dyslipidemia: Code(s): E78.2 - Mixed hyperlipidemia Category: Medical Plan: Reviewed results of recent fasting lipid panel which showed elevated LDL cholesterol, goal is less than 100 mg/dL. Reminded to increase dose of rosuvastatin to 10 mg daily but patient would like to try diet and exercise and wants to continue with just a 5 mg dose. Started on wegovy today for help with weight loss and hopefully this should also bring about lowering of her LDL cholesterol and glucose levels (2) Obesity (BMI 30.0-34.9): Code(s): E66.9 - Obesity, unspecified Category: Medical Plan: Started on Wegovy at 0.25 mg injected subcutaneously once a week. Nurse navigator referral ordered, for consultation regarding diet and patient education with regards to use of GLP 1 agonist. (3) Diabetes mellitus with hyperglycemia: Code(s): E11.65 - Type 2 diabetes mellitus with hyperglycemia Category: Medical Qualifiers: Diabetes mellitus type: type 2 Diabetes mellitus middle or intermediate school principal insulin use: without care home use Qualified Code(s): E11.65 - Type 2 diabetes mellitus with hyperglycemia Plan: Continued on metformin ER 500 mg 1 tablet twice a day and started on Wegovy at 0.25 mg injected subcutaneously once a week. Patient taught on how to use medication properly and reinforced again importance of following recommended diet and getting regular exercise. Will request a copy of her latest diabetes retinopathy exam [facility]. Patient does not want to get any COVID vaccine booster, reminded to get yearly flu shots and recommended to get pneumonia vaccination but patient would like to hold off on it until her next visit (4) Type 2 diabetes mellitus with microalbuminuria: Code(s): E11.29 - Type 2 diabetes mellitus with other diabetic kidney complication; R80.9 - Proteinuria, unspecified Category: Medical Plan: Continued on metformin ER 500 mg 1 tablet twice a day and started on Wegovy at 0.25 mg injected subcutaneously once a week. Patient taught on how to use medication properly and reinforced again importance of following recommended diet and getting regular exercise. Will request a copy of her latest diabetes retinopathy exam [facility]. Patient does not want to get any COVID vaccine booster, reminded to get yearly flu shots and recommended to get pneumonia vaccination but patient would like to hold off on it until her next visit. Urine microalbuminuria is positive, recommended start on lisinopril but patient declined at present. Orders: Orders Hemoglobin A1c 02/19/25 E11.29 - Type 2 diabetes mellitus with other diabetic kidney complication, E11.65 - Type 2 diabetes mellitus with hyperglycemia, E66.9 - Obesity, unspecified, E78.2 - Mixed hyperlipidemia, R80.9 - Proteinuria, unspecified Alanine Aminotransferase 02/19/25 E11.29 - Type 2 diabetes mellitus with other diabetic kidney complication, E11.65 - Type 2 diabetes mellitus with hyperglycemia, E66.9 - Obesity, unspecified, E78.2 - Mixed hyperlipidemia, R80.9 - Proteinuria, unspecified Basic Metabolic Panel Fasting 02/19/25 E11.29 - Type 2 diabetes mellitus with other diabetic kidney complication, E11.65 - Type 2 diabetes mellitus with hyperglycemia, E66.9 - Obesity, unspecified, E78.2 - Mixed hyperlipidemia, R80.9 - Proteinuria, unspecified Aspartate Amino Transferase 02/19/25 E11.29 - Type 2 diabetes mellitus with other diabetic kidney complication, E11.65 - Type 2 diabetes mellitus with hyperglycemia, E66.9 - Obesity, unspecified, E78.2 - Mixed hyperlipidemia, R80.9 - Proteinuria, unspecified Lipid Panel 02/19/25 E11.29 - Type 2 diabetes mellitus with other diabetic kidney complication, E11.65 - Type 2 diabetes mellitus with hyperglycemia, E66.9 - Obesity, unspecified, E78.2 - Mixed hyperlipidemia, R80.9 - Proteinuria, unspecified Medications: Tad Clay (semaglutide (weight loss)) administer weeks 1 through 4 of therapy 0.25 mg (0.5 mL) subcut QWEEK 2 mL 4RF NS E11.29 - Type 2 diabetes mellitus with other diabetic kidney complication, E11.65 - Type 2 diabetes mellitus with hyperglycemia, E66.9 - Obesity, unspecified, E78.2 - Mixed hyperlipidemia, R80.9 - Proteinuria, unspecified blood sugar diagnostic (OneTouch Ultra Test strips) Go check fasting blood sugar twice a day before meals 100 ea 5RF E11.29 - Type 2 diabetes mellitus with other diabetic kidney complication, E11.65 - Type 2 diabetes mellitus with hyperglycemia, R80.9 - Proteinuria, unspecified blood-glucose meter (OneTouch Verio Flex Meter) Check fasting blood sugar twice a day before meals 1 ea 0RF E11.29 - Type 2 diabetes mellitus with other diabetic kidney complication, E11.65 - Type 2 diabetes mellitus with hyperglycemia, R80.9 - Proteinuria, unspecified Changed From metformin ER 500 mg PO BID 90 tabs 0RF E11.65 - Type 2 diabetes mellitus with hyperglycemia, E66.9 - Obesity, unspecified To metformin ER 500 mg PO BID 3 months 180 tabs 0RF E11.65 - Type 2 diabetes mellitus with hyperglycemia, E66.9 - Obesity, unspecified Refilled rosuvastatin 5 mg PO DAILY 90 tabs 2RF E78.2 - Mixed hyperlipidemia
[2024-11-13 13:39] VITALS: BP 124/80; PULSE 82; RESP 17; TEMP 36.7; O2SAT 97; BMI 31.8
== END 2024-11-13 14:23 | disposition home or self-care (01) ==
LOC: HO.HMCC 13:30
PROVIDERS: PCP Internal Medicine; Visit Provider Internal Medicine
DX: E78.2 Mixed hyperlipidemia (principal); E11.65 Type 2 diabetes mellitus with hyperglycemia; E11.29 Type 2 diabetes mellitus with other diabetic kidney complication; Z68.31 Body mass index [BMI] 31.0-31.9, adult; E66.9 Obesity, unspecified; R80.9 Proteinuria, unspecified

== ENCOUNTER → 2024-11-13 13:29 | Outpatient (BNVA) | payer OTHER, SELFPAY | PROVIDERS: PCP Internal Medicine; Visit Provider Internal Medicine | DX: E78.2 Mixed hyperlipidemia (principal); E66.9 Obesity, unspecified; Z68.31 Body mass index [BMI] 31.0-31.9, adult; E11.65 Type 2 diabetes mellitus with hyperglycemia; E11.29 Type 2 diabetes mellitus with other diabetic kidney complication; R80.9 Proteinuria, unspecified; Z79.84 Long term (current) use of oral hypoglycemic drugs; Z79.899 Other long term (current) drug therapy | CPT/HCPCS: 96127 ==

== ENCOUNTER 2025-02-02 19:28 | Emergency (ER) | payer OTHER, SELFPAY ==
--- NOTE | ~2025-02-02 | XR_ITS ---
CLINICAL HISTORY: wound 5th toe Radiographs of the right foot, 3 views Comparison: None Findings: No cortical destruction or periostitis to indicate osteomyelitis. No fracture or dislocation. The joint spaces are preserved without osteophytosis. Calcaneal enthesophytes. Bone mineralization is normal. Soft tissue swelling. Lucency adjacent to the 5th middle/distal phalanges of the medial aspect seen on AP view could be air. Impression: No radiographic evidence of osteomyelitis. Lucency adjacent to the 5th mid/distal phalanges may indicate air from an ulceration or infection with gas producing organism. Follow up if symptoms persist or worsen. This document has been electronically signed by: Carmela Gutierrez MD on 02/02/2025 20:40:08
--- NOTE | 2025-02-02 19:43 | ED_ITS ---
HPI - General Adult General Chief complaint: Extremity Problem Stated complaint: right toe infected shooting pain Time Seen by Provider: 02/02/25 21:29 Source: patient Mode of arrival: ambulatory Limitations: no limitations History of Present Illness ED Provider: Dr. Tracy Cleveland HPI narrative: Patient comes to the emergency room complaining of an infected toe on the right foot. According to the patient, about week and a half ago, patient dropped a can of food in her foot. Patient states that initially she moves more worried about a fracture in the metatarsals. Did not pay much attention to her toes. Over last few days, she started noticing that the pain started turning different color and now there is malodorous drainage an erythema going up the foot. Patient denies fever chills. Related Data Previous Rx's ?Medication ?Instructions ?Recorded Wegovy 0.25 mg/0.5 mL subcutaneous 0.25 mg (0.5 mL) subcut QWEEK #2 mL 11/13/24 pen injector (semaglutide (weight loss)) blood sugar diagnostic (OneTouch #100 ea 11/13/24 Ultra Test strips) blood-glucose meter (OneTouch #1 ea 11/13/24 Verio Flex Meter) metformin 500 mg tablet,extended 500 mg PO BID 3 months #180 tabs 11/13/24 release 24 hr rosuvastatin 5 mg tablet 5 mg PO DAILY #90 tabs 11/13/24 alcohol swabs (Alcohol Prep Pads) 1 pad topical BID #200 ea 11/21/24 blood sugar diagnostic (OneTouch #100 ea 11/21/24 Verio test strips) lancets 30 gauge (OneTouch Delica #200 ea 11/21/24 Plus Lancet) cephalexin 500 mg capsule 500 mg PO BID #20 caps 02/02/25 doxycycline hyclate 100 mg capsule 100 mg PO BID #20 caps 02/02/25 ibuprofen 600 mg tablet 600 mg PO Q8H PRN fever or pain 02/02/25 #20 tabs Allergies Allergy/AdvReac Type Severity Reaction Status Date / Time control pills Allergy Unknown DVT, R leg Uncoded 02/02/25 19:48 Review of Systems 2 Review of Systems: Constitutional : No Weight loss, No Fever, No Chills, No Night Sweats, No Fatigue, No Malaise ENT/Mouth : No Hearing loss, No Ear Pain, No Nasal Congestion, No Sinus Pain, No Hoarseness, No sore throat, No Rhinorrhea, No Swallowing Difficulty Eyes: No Eye Pain, No Swelling, No Redness, No Foreign Body, No Discharge, No Vision Changes Cardiovascular : No Chest Pain, No SOB, No Dyspnea on Exertion, No Orthopnea, No Edema, No Palpitations Respiratory : No Cough, No Sputum, No Wheezing, No Smoke Exposure, No Dyspnea Gastrointestinal : No Nausea, No Vomiting, No Diarrhea, No Constipation, No abdominal Pain, No Hematochezia, No Melena Genitourinary : no irregular bleeding, No Dysuria, No Urinary Frequency, No Hematuria, No Urinary Incontinence, No Urgency, No Flank Pain, No Urinary Flow Changes, No Hesitancy Musculoskeletal : No joint pain, No Myalgias, No Joint Swelling Skin : Complaining of an ulcer, malodorous drainage in the 5th toe on the right foot Neuro : No Weakness, No Numbness, No Paresthesias, No Loss of Consciousness, No Dizziness, No Headache Psych : No Anxiety/Panic, No Depression, No SI/HI/AH/VH, No Social Issues, Heme/Lymph: No Bruising, No Bleeding,No Lymphadenopathy Endocrine : No Polyuria, No Polydipsia, No Temperature Intolerance PMFSH Past Medical History Medical History Type 2 diabetes mellitus with microalbuminuria Mixed dyslipidemia Obesity (BMI 30.0-34.9) Diabetes mellitus with hyperglycemia Cigarette smoker motivated to quit Surgical History No history of previous surgery Family History Family History Father Substance use disorder Social History Social History Housing: Condominium Alcohol intake: unknown Patient Tobacco Use Status: Former Tobacco user Tobacco use type: Cigarette Smoked in Last 30 Days: Yes e-Cigarette/Vaping Use: Never Used Use of substances other than those prescribed or required for medical reasons: No Advance Directives: No Advance Directives Information Provided: Yes Patient : No service: No Current occupational status: employed Cognitive needs: No Hearing needs: No Vision needs: Yes Physical Exam ED Vital Signs: Vital Signs - 24 hr 02/02/25 19:46 02/02/25 21:07 Temperature 98.2 F 99.3 F Pulse Rate 86 79 Respiratory Rate 18 16 Blood Pressure 132/75 119/80 Pulse Oximetry 95 97 Oxygen Delivery Method Room Air Room Air BMI result Body Mass Index 32.5 Const Other: Appearance: Alert. Oriented X3. No acute distress. Eyes: Pupils equal, round and reactive to light. ENT: Pharynx normal. Neck: Normal inspection. Neck supple. No lymph nodes noted. No crepitus CVS: Normal heart rate and rhythm. Pulses normal. Normal S1 and S2 Respiratory: No respiratory distress. Breath sounds normal. No Wheezing. No rales Abdomen: Soft and nontender. No rigidity. No distention. Skin: Skin warm and dry. Normal skin color. Normal skin turgor. See extremities below Extremities: No lower extremity edema. No Lacerations. No Rash on the 5th toe of the right foot, there is an ulcer with malodorous dose discharge. Erythema over the dorsum of the toe, see pictures below Neuro: Oriented X 3. No motor deficit. No sensory deficit. Moving all extremities. No slurred speech. CN 2 through 12 grossly intact Psych: calm, cooperative, normal affect Course Course Course Narrative: This is a rapid medical exam performed by Ira Thayer NP: Additional HPI, ROS, PE not included below will be deferred to primary provider. Patient is a 54-year-old female with history of T2DM, dyslipidemia presenting with complaint of wound to right 5th toe, last two days is having pain to foot and lower leg. States wound has been present around 2 weeks. Open wound to medial aspect of R 5th toe with serosanguinous drainage. Plan: labs, xray Medical Decision Making Medical Decision Making [facility] Narrative: My interpretation of labs: Normal hematology, no leukocytosis, glucose 321. Foot x-ray: No radiographic evidence of osteomyelitis, lucency on the 5th distal phalanges, may indicate air from an ulcer versus infection with a gas producing organism I discussed the above-mentioned with the patient. Patient made aware that a negative x-ray does not rule out osteomyelitis Given the presentation of the patient, the appearance of her foot, I recommended admission with IV antibiotics and also fluids and insulin to reduce the patient's glucose. Dr. Dexter from the Medicine team also evaluated the patient and also recommended admission. However, patient states that she has animals at home and she can not stay in the hospital until she arranges care for them. Patient was given the 1st dose of antibiotics here in the emergency room. Antibiotics were sent to the patient's pharmacy. Dr. Dexter and I discussed with the patient to plan to return to the emergency room as soon as possible, especially if she has any worsening symptoms or if she has no improvement within the next couple of days. Differential Diagnosis Differential Diagnoses: The differential diagnosis associated with the presentation includes (Cellulitis, osteomyelitis, abscess, hyperglycemia) Admission/Observation Consideration of admission/observation: Escalation of care including admission/observation considered (Admission was recommended by me and our hospitalist, patient declined at this time, states she will plan to return) Consult Healthcare Provider Management of the patient was discussed with: Hospitalist Lab Data MDM Lab Attestation statement: I reviewed the patient's lab results. 02/02/25 20:08 02/02/25 20:08 Labs: Lab Results 02/02/25 Range/Units 20:08 WBC 8.6 (4.8-10.8) X10*3/uL RBC 4.56 (4.20-5.50) X10*6/uL Hgb 14.3 (12.0-16.0) g/dl Hct 40.0 (37.0-47.0) % MCV 87.7 (80.0-98.0) fL MCH 31.4 (27.0-33.0) pg MCHC 35.8 H (31.0-35.0) g/dl RDW 13.2 (11.0-16.0) % Plt Count 218 (160-400) X10*3/uL MPV 10.2 (9.4-12.3) fL Immature Gran % (Auto) 0.3 (0.0-0.4) % Neut % (Auto) 61.1 (45-73) % Lymph % (Auto) 30.0 (20-40) % [place] % (Auto) 6.0 (2-11) % Eos % (Auto) 1.9 (0-4) % Baso % (Auto) 0.7 (0-2) % Lymph # (Auto) 2.6 (1.2-4.9) X10*3/uL [place] # (Auto) 0.5 (0.1-1.2) X10*3/uL Eos # (Auto) 0.2 (0.0-0.4) X10*3/uL Baso # (Auto) 0.1 (0.0-0.2) X10*3/uL Abs Immat Gran (auto) 0.03 (0.00-0.03) X10*3/uL Absolute Neuts (auto) 5.3 (2.0-8.3) x10*3/uL Absolute Nucleated RBC 0.000 (0.0-0.012) X10*3/uL Nucleated RBC % (auto) 0.0 (0.0-0.2) /100WBC ESR 25 H (0-20) MM/HR Sodium 137 (135-145) mmol/L Potassium 4.4 (3.3-5.1) mmol/L Chloride 103 (96-108) mmol/L Carbon Dioxide 23 (22-29) mmol/L Anion Gap 15 (12-20) BUN 17 H (9-16) mg/dL Creatinine 0.73 (0.5-1.4) mg/dL Estim Creat Clear Calc 104.7 Estimated GFR > 60 Random Glucose 321 H (60-115) mg/dL Calcium 9.4 (8.4-10.2) mg/dL Total Bilirubin 0.2 (0.0-1.0) mg/dL AST 14 (5-31) U/L ALT 16 (0-31) U/L Alkaline Phosphatase 97 (39-117) U/L C-Reactive Protein 1.35 H (< or = 0.50) mg/dL Total Protein 7.0 (6.5-8.0) g/dL Albumin 4.1 (3.5-5.0) g/dL Critical Care Time Critical Care Time Critical Care Time: Yes Total Critical Care Time: 45 Attestation: I have personally provided critical care time. Time includes review of lab data, radiology results, discussion with consultants, and monitoring for potential decompensation. Intervention performed as documented. Discharge Plan Discharge Clinical Impression: Diabetic foot ulcer, Acute hyperglycemia Patient Disposition: Left Against Medical Advice Instructions: Foot Care for People with Diabetes (ED), Diabetic Hyperglycemia (ED) Additional Instructions: Please follow-up with your primary care physician tomorrow. If you have any worsening or new symptoms, please return to the emergency room or call 911 Prescriptions: New cephalexin 500 mg capsule 500 mg PO BID Qty: 20 0RF doxycycline hyclate 100 mg capsule 100 mg PO BID Qty: 20 0RF ibuprofen 600 mg tablet 600 mg PO Q8H PRN (Reason: fever or pain) Qty: 20 0RF No Action (DME) lancets [OneTouch Delica Plus Lancet] 30 gauge misc See Rx Instructions .Route Qty: 200 0RF Rx Instructions: Check blood sugar twice daily (DME) OneTouch Verio test strips Strip See Rx Instructions .Route Qty: 100 5RF Rx Instructions: Check blood sugar twice daily as directed alcohol swabs [Alcohol Prep Pads] Pads, Medicated 1 pad topical BID Qty: 200 5RF Wegovy 0.25 mg/0.5 mL pen injector 0.25 mg subcut QWEEK Qty: 2 4RF Rx Instructions: administer weeks 1 through 4 of therapy (DME) blood-glucose meter [OneTouch Verio Flex meter] Misc See Rx Instructions .Route Qty: 1 0RF Rx Instructions: Check fasting blood sugar twice a day before meals (DME) OneTouch Ultra Test Strip See Rx Instructions .Route Qty: 100 5RF Rx Instructions: Go check fasting blood sugar twice a day before meals rosuvastatin 5 mg tablet 5 mg PO DAILY Qty: 90 2RF metformin 500 mg tablet extended release 24 hr 500 mg PO BID 90 Days Qty: 180 0RF Print Language: Djib[place]ian
[2025-02-02 19:46] VITALS: BP 132/75; PULSE 86; RESP 18; TEMP 36.8; O2SAT 95; BMI 32.5
[2025-02-02 20:15] LABS: MANUAL DIFF FLAG NO
[2025-02-02 20:16] LABS: Basophils Absolute Auto 0.1 X10*3/uL (0.0-0.2); Basophils Percent Auto 0.7 % (0-2); Eosinophils Absolute Auto 0.2 X10*3/uL (0.0-0.4); Eosinophils Percent Auto 1.9 % (0-4); Hemoglobin 14.3 g/dl (12.0-16.0); Imm Gran Abs Auto 0.03 X10*3/uL (0.00-0.03); Imm Gran Pct Auto 0.3 % (0.0-0.4); Lymphocytes Absolute Auto 2.6 X10*3/uL (1.2-4.9); Mean Corpuscular HGB Conc 35.8 g/dl (31.0-35.0); Mean Corpuscular Hemoglobin 31.4 pg (27.0-33.0); Mean Corpuscular Volume 87.7 fL (80.0-98.0); Mean Platelet Volume 10.2 fL (9.4-12.3); Monocytes Absolute Auto 0.5 X10*3/uL (0.1-1.2); Neutrophils Absolute Auto 5.3 x10*3/uL (2.0-8.3); Neutrophils Percent Auto 61.1 % (45-73); Platelet Count 218 X10*3/uL (160-400); Red Blood Count 4.56 X10*6/uL (4.20-5.50); Red Cell Distribution Width 13.2 % (11.0-16.0); White Blood Count 8.6 X10*3/uL (4.8-10.8)
[2025-02-02 20:30] LABS: Alanine Aminotransferase 16 U/L (0-31); Albumin Level 4.1 g/dL (3.5-5.0); Alkaline Phosphatase 97 U/L (39-117); Anion Gap 15 (12-20); Aspartate Amino Transferase 14 U/L (5-31); Bilirubin Total 0.2 mg/dL (0.0-1.0); Blood Urea Nitrogen 17 mg/dL (9-16); C Reactive Protein 1.35 mg/dL (< or = 0.50); Calcium 9.4 mg/dL (8.4-10.2); Carbon Dioxide 23 mmol/L (22-29); Chloride 103 mmol/L (96-108); Creatinine Clr Calc Pharmacy 104.7; Estimated Glomerular Filt Rate > 60; Glucose Random 321 mg/dL (60-115); Potassium 4.4 mmol/L (3.3-5.1); Sodium 137 mmol/L (135-145)
[2025-02-02 21:07] VITALS: BP 119/80; PULSE 79; RESP 16; TEMP 37.4; O2SAT 97
--- NOTE | 2025-02-02 21:07 | PC.NURSE ---
Report given to CAROLINE Benson.
[2025-02-02 21:20] LABS: Erythrocyte Sedimentation Rate 25 MM/HR (0-20)
[2025-02-02] MEDS: cephALEXin 500 MG CAPSULE PO (22:36)
[2025-02-02] MEDS: Doxycycline Monohydrate 100 MG CAPSULE PO (22:36)
[2025-02-02 22:41] VITALS: BP 119/80; PULSE 79; RESP 16; TEMP 37.4; O2SAT 97
== END 2025-02-02 22:41 | disposition left against medical advice (07) ==
PROVIDERS: Registered Nurse Emergency; Emergency Provider Emergency Medicine; PCP Internal Medicine
DX: E11.621 Type 2 diabetes mellitus with foot ulcer (principal); E11.65 Type 2 diabetes mellitus with hyperglycemia; E78.5 Hyperlipidemia, unspecified; Z87.891 Personal history of nicotine dependence; Z53.29 Procedure and treatment not carried out because of patient's decision for other reasons; Z79.84 Long term (current) use of oral hypoglycemic drugs
CPT/HCPCS: 36415; 73630; 80053; 85025; 85652; 86140; 87040; 99283; 99284

== ENCOUNTER → 2025-02-02 19:48 | Outpatient (BNV) | payer OTHER, SELFPAY | PROVIDERS: PCP Internal Medicine; Visit Provider Radiology Diagnostic Radiology | DX: R22.41 Localized swelling, mass and lump, right lower limb (principal) | CPT/HCPCS: 73630 ==

== ENCOUNTER 2025-02-28 12:51 | Outpatient (AMB) | payer OTHER, SELFPAY ==
[2025-02-28 12:52] VITALS: BP 136/80; PULSE 74; TEMP 36.6; O2SAT 96; BMI 32.6
--- NOTE | 2025-02-28 12:52 | AM.OFFWIN_ITS ---
Intake Vital Signs 02/28/25 12:52 Height 5 ft 8 in Weight 214 lb 8 oz BMI 32.6 BP 136/80 Blood Pressure Location Lt brachial Position Sitting Pulse 74 Pulse Source Pulse Oximeter Temp 97.9 F Temp Source Oral Pulse Oximetry (%) 96 Oxygen Delivery Method Room Air Intake Visit Reasons: EP RT ear pain, infection? Intake Note: Patient present with right ear pain times 3days, pain is moving down the jaw and now starting to get sore throat and headache Patient Tobacco Use Status: Former Tobacco user [employer] Required: No Is last menstrual period known: No Post menopausal: Yes Patient : No Allergies control pills Allergy (Unknown, Uncoded 02/02/25 19:48) DVT, R leg Medication List - Last Reconciled 02/28/25 by Kera Nieves PA-C blood sugar diagnostic (OneTouch Ultra Test strips) Go check fasting blood sugar twice a day before meals blood sugar diagnostic (OneTouch Verio test strips) Check blood sugar twice daily as directed blood-glucose meter ([employer] Verio Flex Meter) Check fasting blood sugar twice a day before meals ibuprofen 600 mg PO Q8H PRN lancets ([employer] Delica Plus Lancet) Check blood sugar twice daily metformin ER 500 mg PO BID 3 months Do you need a note to return to daycare/school/sports/work: No HPI HPI Comments History of Present Illness Details History - The patient is a 54-year-old female pr esenting with right ear pain and associated symptoms suggestive of an ear infection. - The ear pain began approximately five days ago as a mild twinge and has progressed to a throbbing pain. - The pain is localized to the right ear and has extended to the jaw and head, accompanied by a headache. - Ibuprofen provides temporary relief fo r about 4.5 hours. - The patient reports a change in hearin g in the affected ear. - The patient has not experienced freque nt ear infections, with the last occurrence being 15-20 years ago. - There is no recent history of upper re spiratory infections, although the patient was on antibiotics last month for a toe infection. Physical Exam General: Cooperative, healthy appearing, comfortable and no acute distress Orientation/consciousness: Patient oriented x3 Limitations: No limitations Head: Normal to inspection Ears: Hearing decreased in the right ear, external ears normal, TM's normal bilaterally Nose: Normal external nose present, Normal nares present, No nasal discharge present Face and sinus: Normal facial exam, Sinuses tender maxillary Right side Mouth: Normal oral and palatal mucosa present and moist mucous membranes Throat: Yes tonsils normal, Yes uvula midline. Posterior oropharynx erythema, no exudates Eyes: Appearance normal, both eyes and all related structures Neck: Normal visual inspection, full ROM Respiratory: Normal respiratory effort, able to speak in complete sentences, No active coughing, no respiratory distress, not tachypneic, no tripod positioning and no use of accessory muscles Skin: No rashes or lesions noted Neuro: Patient oriented x3 Extremities: Normal to inspection and Yes no clubbing, cyanosis or edema PFSH Medical History Type 2 diabetes mellitus with microalbuminuria Mixed dyslipidemia Obesity (BMI 30.0-34.9) Diabetes mellitus with hyperglycemia Cigarette smoker motivated to quit Surgical History No history of previous surgery Family History Father Substance use disorder Social History Housing: Condominium Alcohol intake: unknown Patient Tobacco Use Status: Former Tobacco user Tobacco use type: Cigarette e-Cigarette/Vaping Use: Never Used service: No Current occupational status: employed Cognitive needs: No Hearing needs: No Vision needs: Yes Review of Systems Const All systems reviewed & are unremarkable except as noted in HPI and below Physical Exam Vital Signs: Last Vital Signs Temp 97.9 F 02/28/25 12:52 Pulse 74 02/28/25 12:52 BP 136/80 02/28/25 12:52 Pulse Ox 96 02/28/25 12:52 Oxygen Delivery Method Room Air 02/28/25 12:52 BMI result Body Mass Index 32.6 Assessment & Plan Assessment & Plan (1) Otitis media: Code(s): H66.90 - Otitis media, unspecified, unspecified ear Qualifiers: Chronicity: acute Laterality: right Otitis media type: suppurative Recurrence: non-recurrent Spontaneous tympanic membrane rupture: without spontaneous rupture Qualified Code(s): H66.001 - Acute suppurative otitis media without spontaneous rupture of ear drum, right ear Plan: - VSS, pt well appearing and PE remarkable for right OM, will treat. - Prescribe Augmentin for the treatment of suspected bacterial infection in the right ear. - Recommend the use of Flonase to help clear any fluid in the ear and alleviate sinus symptoms. - Suggest Benadryl at night to assist with drying up nasal passages and improving comfort. Patient was informed and verbally consented to the use of an ambient scribe for clinic note documentation during this visit Medications: New amoxicillin-pot clavulanate 875-125 mg 1 tab PO Q12H 14 tabs 0RF Coding Level of Care Code Est Pt Level 3 (16589) Diagnoses Non-recurrent acute suppurative otitis media of right ear without spontaneous rupture of tympanic membrane H66.001 Chronicity: acute Laterality: right Otitis media type: suppurative Recurrence: non-recurrent Spontaneous tympanic membrane rupture: without spontaneous rupture
== END 2025-02-28 13:37 | disposition home or self-care (01) ==
PROVIDERS: PCP Internal Medicine; Visit Provider Physician Assistant
DX: H66.001 Acute suppurative otitis media without spontaneous rupture of ear drum, right ear (principal)

== ENCOUNTER 2025-03-08 12:11 | Inpatient (IN) | payer OTHER, SELFPAY ==
--- NOTE | ~2025-03-08 | US_ITS ---
EXAMINATION: Noninvasive assessment of the bilateral lower extremities with ARTERIAL DUPLEX, ANKLE BRACHIAL INDICES (ABIs), and PULSE VOLUME RECORDINGS (PVRs). CLINICAL INFORMATION: Nonhealing right foot. TECHNIQUE: Duplex Doppler techniques with waveform analysis and measurement of velocities in the bilateral common femoral, profunda femoris, superficial femoral, popliteal and tibial arteries were performed. Additionally, ankle pulse volume recordings, ankle pressure measurements and ankle brachial indices were obtained of the lower extremity arterial system bilaterally. The study was performed only at rest. COMPARISON: None FINDINGS: DIRECT DUPLEX DOPPLER FINDINGS: RIGHT LEG: Common femoral artery: 88 cm/s, phasicity: Triphasic. Profunda femoris artery: 73 cm/s, phasicity: Triphasic. Superficial femoral artery (proximal): 106 cm/s, phasicity: Triphasic. Superficial femoral artery (mid): 80 cm/s, phasicity: Monophasic. Superficial femoral artery (distal): 44 cm/s, phasicity: Monophasic. Popliteal artery: 58 cm/s, phasicity: Monophasic. Posterior tibial artery: 35 cm/s, phasicity: Monophasic. Peroneal artery: 30 cm/s, phasicity: Monophasic. Anterior tibial artery: 30 cm/s, phasicity: Monophasic. Dorsalis pedis artery: 40 cm/s, phasicity:Monophasic. LEFT LEG: Common femoral artery: 151 cm/s, phasicity: Triphasic. Profunda femoris artery: 69 cm/s, phasicity: Triphasic. Superficial femoral artery (proximal): 95 cm/s, phasicity: Triphasic. Superficial femoral artery (mid): 112 cm/s, phasicity: Triphasic. Superficial femoral artery (distal): 58 cm/s, phasicity: Triphasic. Popliteal artery: 135 cm/s, phasicity: Triphasic. Posterior tibial artery: 90 cm/s, phasicity: Triphasic. Peroneal artery: 46 cm/s, phasicity: Triphasic. Anterior tibial artery: 25 cm/s, phasicity: Monophasic. Dorsalis pedis artery: 69 cm/s, phasicity: Triphasic. BRACHIAL PRESSURES: Right: Not documented. Left: 139 ANKLE PRESSURES: Right: PT 90, DP 68 Left: PT 147, DP 150 ANKLE-BRACHIAL INDEX: Right: 0.65 Left: 1.08 ANKLE PVR WAVEFORMS: Right: Abnormal Left: Abnormal US/US arterial duplex BI w/ LOS IMPRESSION: Right leg: Severe inflow disease from the distal superficial femoral artery to the dorsalis pedis artery. Left leg: Severe inflow disease in the anterior tibialis artery. LOS Reference: - >1.4 = calcified vessels - 0.9 - 1.4 = normal - no significant arterial disease - 0.7 - 0.89 = mild peripheral arterial disease - 0.51 - 0.69 = moderate peripheral arterial disease - 0.50 = severe peripheral arterial disease - < .30 = critical arterial disease Electronically signed by: Marv Freed MD 03/12/2025 07:52 AM EDT
--- NOTE | ~2025-03-08 | XR_ITS ---
EXAMINATION: XR FOOT, LEFT CLINICAL INFORMATION: left big toe chronic wound. osteo COMPARISON: None available. TECHNIQUE: AP, lateral, and oblique views of the left foot. FINDINGS: No fracture, dislocation, or suspicious bone lesion. No region of permeative bone changes to suggest radiographic changes of osteomyelitis. No malalignment. Joint spaces are preserved. Normal plantar arch. There are small dorsal and plantar calcaneal spurs. There is soft tissue swelling of the hallux. There is no subcutaneous gas or radiopaque foreign body seen. XR/XR foot LT 2V IMPRESSION: 1. Soft tissue swelling of the hallux without radiographic evidence of osteomyelitis. Electronically signed by: Sai Tinsley MD 03/08/2025 12:49 PM EDT
--- NOTE | ~2025-03-08 | XR_ITS ---
EXAMINATION: XR FOOT, RIGHT CLINICAL INFORMATION: Right foot wound. osteo? COMPARISON: 02/02/2025. TECHNIQUE: AP, lateral, and oblique views of the right foot. FINDINGS: No fracture or dislocation. There are permeative changes of the fifth digit involving the middle and distal phalanges, centered in the region of the DIP joint. Findings are consistent with osteomyelitis. No additional regional bony permeative change. Joint spaces otherwise preserved. Normal plantar arch. There are small dorsal and plantar calcaneal spurs. There is soft tissue swelling of the fifth digit. There is no gross subcutaneous gas or foreign body. XR/XR foot RT 2V IMPRESSION: 1. Permeative/erosive changes centered within the DIP joint of the fifth digit in keeping with osteomyelitis. Electronically signed by: Sai Tinsley MD 03/08/2025 12:48 PM EDT
[2025-03-08 12:26] VITALS: BP 118/60; PULSE 82; RESP 18; TEMP 36.8; O2SAT 98; BMI 32.4
--- NOTE | 2025-03-08 12:30 | ED.GENADULT ---
HPI - General Adult General Chief complaint: Extremity Injury, Lower Stated complaint: right toe infection Time Seen by Provider: 03/08/25 12:49 Source: patient Mode of arrival: ambulatory Limitations: no limitations History of Present Illness ED Provider: Any Herr PA-C HPI narrative: Patient is a 54 year old female with past medical history of DM2 not on insulin, and HLD presents to ER on 03/08 with chief complaint of right 5th toe infection and pain. She was recently seen in 01/2025 for the same issue, and was recommended to be admitted for IV antibiotics but did not want to stay due to pets/animals at home. She instead completed a course of PO antibiotics, which she states originally seemed to help the infection. However, last week she went on vacation to [place], spent time in the water, now with worsening right foot and ankle pain and skin sloughing off of the right 5th toe. She also reports new ecchymosis on her distal left great toe, likely banged it against something on vacation, though hard to tell as she has decreased sensation in that area. She reports her blood sugars have been elevated the past few weeks, as she tends to get readings of around 200-300 mg/dL with home finger sticks daily, though she has been consistent with her Metformin BID. She is not on any other medications for her diabetes mellitus. She mentions recent prescription of Augmentin for sinus infection in the past month. She denies fevers, chills, shortness of breath, chest pain, polyuria, polydipsia, nausea, vomiting, diarrhea, or any other symptoms. Relieving factors: none Exacerbating factors: none Associated symptoms: denies other symptoms Related Data Home Medications ?Medication ?Instructions ?Recorded ?Confirmed acetaminophen 325 mg tablet 650 mg PO Q6H PRN Pain 03/08/25 03/08/25 ibuprofen 200 mg tablet 800 mg PO Q6H PRN Pain 03/08/25 03/08/25 nicotine 14 mg/24 hr daily 1 patch transdermal DAILY PRN 03/08/25 03/08/25 transdermal patch Nicotine Cravings Previous Rx's ?Medication ?Instructions ?Recorded blood sugar diagnostic (OrbotixTouch #100 ea 11/13/24 Ultra Test strips) blood-glucose meter (OneTouch #1 ea 11/13/24 Verio Flex Meter) metformin 500 mg tablet,extended 500 mg PO BID 3 months #180 tabs 11/13/24 release 24 hr blood sugar diagnostic (OrbotixTouch #100 ea 11/21/24 Verio test strips) lancets 30 gauge (OneTouch Delica #200 ea 11/21/24 Plus Lancet) Allergies Allergy/AdvReac Type Severity Reaction Status Date / Time control pills Allergy Unknown DVT, R leg Uncoded 03/08/25 12:31 Review of Systems Constitutional: Constitutional: Reports no additional constitutional complaints, Denies chills, Denies fever(s) and Denies night sweats Eyes: Eyes: Reports no additional eye complaints, Denies blurry vision, Denies change in vision, Denies diplopia, Denies eye discharge, Denies loss of vision and Denies eye pain ENT: Denies dizziness Cardiovascular: Cardiovascular: Reports no additional cardiovascular complaints, Denies chest pain, Denies lightheadedness, Denies Loss of Consciousness and Denies dyspnea Respiratory: Respiratory: Reports no additional respiratory complaints and Denies dyspnea Gastrointestinal: Gastrointestinal: Reports no additional gastrointestinal complaints, Denies abdominal pain, Denies melena, Denies hematochezia, Denies change in bowel habits and Denies change in stool character Genitourinary: Genitourinary: Denies hematuria, Denies urinary frequency, Denies dysuria, Denies urinary incontinence, Denies urinary hesitancy and Denies urinary urgency Musculoskeletal: Musculoskeletal: Reports no additional musculoskeletal complaints, Denies numbness and Denies tingling Comments: right 5th toe pain / infection left great toe pain Neurologic: Denies dizziness, Denies loss of vision, Denies numbness and Denies tingling Psychiatric: Psychiatric: Reports no additional psychiatric complaints Endocrine: Endocrine: Reports no additional endocrine complaints Hematologic/Lymphatic: Hematologic/Lymphatic: Reports no additional hematologic/lymphatic complaints Allergic/Immunologic: Allergic/Immunologic: Reports no additional allergic/immunologic complaints PMFSH Past Medical History Attestation statement: The following information was validated with the patient. Source: old records reviewed and nursing notes reviewed Medical History Type 2 diabetes mellitus with microalbuminuria Mixed dyslipidemia Obesity (BMI 30.0-34.9) Diabetes mellitus with hyperglycemia Cigarette smoker motivated to quit Surgical History No history of previous surgery Family History Family History Father Substance use disorder Social History Social History Household Members: Children Housing: House Alcohol intake: unknown Patient Tobacco Use Status: Former Tobacco user Tobacco use type: Cigarette e-Cigarette/Vaping Use: Never Used service: No Current occupational status: employed Cognitive needs: No Hearing needs: No Vision needs: Yes Physical Exam ED Vital Signs: Vital Signs - 24 hr 03/08/25 12:26 Temperature 98.3 F Pulse Rate 82 Respiratory Rate 18 Blood Pressure 118/60 Pulse Oximetry 98 Oxygen Delivery Method Room Air BMI result Body Mass Index 32.4 Const General: cooperative, no acute distress, alert and awake Nutritional Appearance: well nourished Orientation/consciousness: patient oriented x3 HENMT Head: Yes normal to inspection and Yes atraumatic Ears: hearing grossly normal bilaterally and external ears normal General nose exam: Normal external nose present, no nasal discharge noted and no epistaxis Face and sinus: Yes normal facial exam, No abrasion and No laceration Mouth: Normal oral and palatal mucosa present, no drooling and no muffled voice Eyes General: appearance normal, both eyes and all related structures Periorbital: periorbital findings normal Eyelids: Yes eyelids normal Conjunctivae: conjunctivae normal Pupils: Equal, round and reactive pupils present EOM: EOMs intact bilaterally Neck Neck: Yes normal visual inspection, Yes full ROM and Yes no lymphadenopathy Resp Effort & Inspection: normal respiratory effort and able to speak in complete sentences Neuro General: patient oriented x3, moves all extremities and CN's II-XI intact bilaterally Cranial nerves: Yes Equal, round and reactive pupils present Cognition (Neuro): normal cognition Extrem Other: General: Yes full ROM and Yes capillary refill normal Right lower extremity: normal capillary refill (dorsalis pedis pulse intact and 3+) Psych Appearance: grossly normal Mental Status: mental status grossly normal Affect: normal affect Attitude: cooperative Thought process: Normal thought process present Thought content: Normal thought content present Insight: Good insight present (Psych) Course Course Course Narrative: RmE: 54-year-old female history of diabetes presents to ED for right baby toe infection. Patient was sent to be admitted for right total infection couple of days ago was signed out against medical advice. Patient states now it is worse. Patient has no new complaint in his left big toe chronic wound also look and discolored. Bilateral lower extremities vascular motor neuro exam intact. X-rays labs ordered Medications Administered Generic Name Dose Route Start Last Admin Trade Name Maria M PRN Reason Stop Dose Admin Enoxaparin Sodium 40 mg 03/08/25 14:30 03/08/25 15:51 Enoxaparin Sodium 40 Mg/0.4 Ml Syringe SUBCUT 40 mg Q24H DARRYL Administration Piperacillin Sod/Tazobactam 100 mls @ 200 mls/hr 03/08/25 17:30 03/08/25 17:23 Sod 4.5 gm/ Sodium Chloride IV Infused Q6H DARRYL Infusion Insulin Human Lispro 0 unit 03/08/25 16:30 03/08/25 16:50 Insulin Lispro 100 Unit/Ml 3 Ml Vial SUBCUT 4 unit QIDACHS COUNT INCLUDES THE [facility] Administration Protocol Morphine Sulfate 4 mg 03/08/25 15:39 03/08/25 15:51 Morphine Sulfate 4 Mg/Ml Cartridge IVPUSH 4 mg Q6H PRN Administration Pain, Severe (Pain Scale 7-10) Protocol Oxycodone HCl 5 mg 03/08/25 16:12 03/08/25 17:28 Oxycodone Hcl Immed Release 5 Mg Tablet PO 5 mg Q6H PRN Administration Pain, Moderate(Pain Scale 4-6) Sodium Chloride 3 ml 03/08/25 16:00 03/08/25 15:56 0.9 % Sodium Chloride Flush 3 Ml Syringe IVFLUSH 3 ml QSHIFT DARRYL Administration Discontinued Medications Generic Name Dose Route Start Last Admin Trade Name Maria M PRN Reason Stop Dose Admin Hydromorphone HCl 0.5 mg 03/08/25 13:04 03/08/25 13:21 Hydromorphone Hcl 0.5 Mg/0.5 Ml Syringe IVPUSH 03/08/25 13:05 0.5 mg ONCE ONE Administration Protocol Piperacillin Sod/Tazobactam 50 mls @ 100 mls/hr 03/08/25 12:59 03/08/25 15:45 Sod 3.375 gm/ Sodium Chloride IV 03/08/25 13:28 Infused ONCE ONE Infusion Vancomycin HCl 2,000 mg in 500 mls @ 250 mls/hr 03/08/25 13:15 03/08/25 15:45 Vancomycin/Ns IV 03/08/25 15:14 Infused ONCE ONE Infusion Nicotine 14 mg 03/08/25 16:12 03/08/25 16:20 Nicotine 14 Mg Patch.Td24 TRANSDERMA 03/08/25 16:13 14 mg ONCE ONE Administration Medical Decision Making Medical Decision Making [facility] Narrative: Patient is a 54 year old assigned female at with a history of DM and HLD presenting to the emergency department today with right 5th toe pain and left great toe pain. Patient's physical exam was as noted in the physical exam portion of this note. Patient's blood work showed an ESR of 39 and CRP of 2.24. Patient's right foot x-ray showed evidence of osteomyelitis. Patient's left foot x-ray showed no acute process. Patient's clinical presentation is most consistent with osteomyelitis but not sepsis (@1400). I spoke to the hospitalist team who agreed to admission. I explained my physical exam findings as well as all test results to the patient. I answered all questions asked by the patient. Patient received IV Vancomycin and Zosyn. Patient verbalized agreement and understanding with this treatment plan and admission for continued IV antibiotics. Differential Diagnosis Differential Diagnoses: The differential diagnosis associated with the presentation includes Osteomyelitis of the toe Admission/Observation Consideration of admission/observation: Escalation of care including admission/observation considered Patient admitted as noted in the MDM Rationale portion of this note. Consult Healthcare Provider Management of the patient was discussed with: Hospitalist (agreed to admission as noted in the MDM Rationale portion of this note. ) Lab Data [facility] Lab Attestation statement: I reviewed the patient's lab results. My interpretation of these results are in the MDM Rationale portion of this note. 03/08/25 12:42 03/08/25 12:42 Labs: Lab Results 03/08/25 03/08/25 Range/Units 12:42 13:10 WBC 7.7 (4.8-10.8) X10*3/uL RBC 4.36 (4.20-5.50) X10*6/uL Hgb 13.5 (12.0-16.0) g/dl Hct 38.2 (37.0-47.0) % MCV 87.6 (80.0-98.0) fL MCH 31.0 (27.0-33.0) pg MCHC 35.3 H (31.0-35.0) g/dl RDW 12.6 (11.0-16.0) % Plt Count 285 D (160-400) X10*3/uL MPV 9.8 (9.4-12.3) fL Immature Gran % (Auto) 0.9 H (0.0-0.4) % Neut % (Auto) 62.8 (45-73) % Lymph % (Auto) 27.3 (20-40) % [place] % (Auto) 5.6 (2-11) % Eos % (Auto) 2.7 (0-4) % Baso % (Auto) 0.7 (0-2) % Lymph # (Auto) 2.1 (1.2-4.9) X10*3/uL [place] # (Auto) 0.4 (0.1-1.2) X10*3/uL Eos # (Auto) 0.2 (0.0-0.4) X10*3/uL Baso # (Auto) 0.1 (0.0-0.2) X10*3/uL Abs Immat Gran (auto) 0.07 H (0.00-0.03) X10*3/uL Absolute Neuts (auto) 4.8 (2.0-8.3) x10*3/uL Absolute Nucleated RBC 0.000 (0.0-0.012) X10*3/uL Nucleated RBC % (auto) 0.0 (0.0-0.2) /100WBC ESR 39 H (0-20) MM/HR Sodium 138 (135-145) mmol/L Potassium 4.7 (3.3-5.1) mmol/L Chloride 105 (96-108) mmol/L Carbon Dioxide 26 (22-29) mmol/L Anion Gap 12 (12-20) BUN 15 (9-16) mg/dL Creatinine 0.66 (0.5-1.4) mg/dL Estim Creat Clear Calc 115.6 Estimated GFR > 60 Random Glucose 338 H (60-115) mg/dL Lactic Acid 1.4 (0.5-2.0) mmol/L Calcium 9.4 (8.4-10.2) mg/dL Total Bilirubin 0.2 (0.0-1.0) mg/dL AST 15 (5-31) U/L ALT 25 (0-31) U/L Alkaline Phosphatase 103 (39-117) U/L C-Reactive Protein 2.24 H (< or = 0.50) mg/dL Total Protein 7.1 (6.5-8.0) g/dL Albumin 4.2 (3.5-5.0) g/dL Independent Interpretation I performed an independent interpretation of an: Plain X-Ray Interpretation: My interpretation is in agreement with the radiologist's impression of these imaging studies. EXAMINATION: XR FOOT, LEFT CLINICAL INFORMATION: left big toe chronic wound. osteo COMPARISON: None available. TECHNIQUE: AP, lateral, and oblique views of the left foot. FINDINGS: No fracture, dislocation, or suspicious bone lesion. No region of permeative bone changes to suggest radiographic changes of osteomyelitis. No malalignment. Joint spaces are preserved. Normal plantar arch. There are small dorsal and plantar calcaneal spurs. There is soft tissue swelling of the hallux. There is no subcutaneous gas or radiopaque foreign body seen. XR/XR foot LT 2V IMPRESSION: 1. Soft tissue swelling of the hallux without radiographic evidence of osteomyelitis. Electronically signed by: Sai Tinsley MD 03/08/2025 12:49 PM EDT Dictated By: Sai Tinsley MD Signed By: Electronically signed by Sai Tinsley MD 03/08/25 1249 EXAMINATION: XR FOOT, RIGHT CLINICAL INFORMATION: Right foot wound. osteo? COMPARISON: 02/02/2025. TECHNIQUE: AP, lateral, and oblique views of the right foot. FINDINGS: No fracture or dislocation. There are permeative changes of the fifth digit involving the middle and distal phalanges, centered in the region of the DIP joint. Findings are consistent with osteomyelitis. No additional regional bony permeative change. Joint spaces otherwise preserved. Normal plantar arch. There are small dorsal and plantar calcaneal spurs. There is soft tissue swelling of the fifth digit. There is no gross subcutaneous gas or foreign body. XR/XR foot RT 2V IMPRESSION: 1. Permeative/erosive changes centered within the DIP joint of the fifth digit in keeping with osteomyelitis. Electronically signed by: Sai Tinsley MD 03/08/2025 12:48 PM EDT Dictated By: Sai Tinsley MD Signed By: Electronically signed by Sai Tinsley MD 03/08/25 1248 Radiology Impression Discussion of test interpretation with radiology: I have reviewed the radiologist's reading. Chronic Conditions Patient?s care impacted by: Diabetes Critical Care Time Critical Care Time Critical Care Time: Yes Total Critical Care Time: 34 Attestation: I spent 34 minutes of Critical Care Time with this patient. This does not include time spent on separately reported billable procedures. Discharge Plan Discharge Clinical Impression: Osteomyelitis Qualifiers: Osteomyelitis type: other Osteomyelitis location: other site Qualified Code(s): M86.8X8 - Other osteomyelitis, other site Patient Disposition: Admitted As Inpatient Interventions: Admission Worksheet (ED) Last Done: 03/08/25 14:47 Discharge Date/Time: 03/08/25 15:48
[2025-03-08 12:55] LABS: MANUAL DIFF FLAG NO
[2025-03-08 12:58] LABS: Hematocrit 38.2 % (37.0-47.0); Hemoglobin 13.5 g/dl (12.0-16.0); Imm Gran Abs Auto 0.07 X10*3/uL (0.00-0.03); Imm Gran Pct Auto 0.9 % (0.0-0.4); Lymphocytes Absolute Auto 2.1 X10*3/uL (1.2-4.9); Mean Corpuscular HGB Conc 35.3 g/dl (31.0-35.0); Mean Corpuscular Hemoglobin 31.0 pg (27.0-33.0); Mean Corpuscular Volume 87.6 fL (80.0-98.0); NRBC Abs Auto 0.000 X10*3/uL (0.0-0.012); NRBC Pct Auto 0.0 /100WBC (0.0-0.2); Platelet Count 285 X10*3/uL (160-400); Red Blood Count 4.36 X10*6/uL (4.20-5.50); White Blood Count 7.7 X10*3/uL (4.8-10.8)
[2025-03-08 13:13] LABS: Alanine Aminotransferase 25 U/L (0-31); Albumin Level 4.2 g/dL (3.5-5.0); Alkaline Phosphatase 103 U/L (39-117); Anion Gap 12 (12-20); Aspartate Amino Transferase 15 U/L (5-31); Blood Urea Nitrogen 15 mg/dL (9-16); Calcium 9.4 mg/dL (8.4-10.2); Carbon Dioxide 26 mmol/L (22-29); Chloride 105 mmol/L (96-108); Creatinine Clr Calc Pharmacy 115.6; Estimated Glomerular Filt Rate > 60; Potassium 4.7 mmol/L (3.3-5.1); Sodium 138 mmol/L (135-145); Total Protein 7.1 g/dL (6.5-8.0)
[2025-03-08] MEDS: vancomycin/NS 2,000 MG/500 ML PLAST..BAG 250 MG IV (13:24)
--- NOTE | 2025-03-08 14:21 | PM.IMHP ---
History of Present Illness Date of Service: 03/08/25 Chief Complaint: toe pain This is a 54-year-old female with pertinent history of sef-mrsfoxg-[id number] type 2 diabetes mellitus who presents to the emergency department for evaluation of right toe pain and concerns of infection. Patient was seen in the ER on 02/02/2025 for similar complaints when she refused admission at that time and was discharged with p.o. antibiotics. Patient states her symptoms have persisted and she has noticed purulent foul-smelling drainage from right 5th toe. She recently went [place] a vacation at [place] beach and after contact with water her right toe infection worsened. She also has been having pain with ambulation over the right 5th toe. Patient states she banged her left great toe against something during vacation and noted discoloration. No drainage from left toe. No fever or chills. No nausea, vomiting, chest pain, palpitations, abdominal pain, changes in urinary or bowel habits. Patient does not take insulin at home but is compliant with home metformin. In the emergency department, imaging concerning for right 5th toe osteomyelitis Review of Systems Constitutional: Constitutional: Reports no additional constitutional complaints Cardiovascular: Cardiovascular: Reports no additional cardiovascular complaints Respiratory: Respiratory: Reports no additional respiratory complaints Gastrointestinal: Gastrointestinal: Reports no additional gastrointestinal complaints Genitourinary: Genitourinary: Reports no additional female genitourinary complaints Musculoskeletal: Musculoskeletal: Reports arthralgias [facility] Medical History Type 2 diabetes mellitus with microalbuminuria Mixed dyslipidemia Obesity (BMI 30.0-34.9) Diabetes mellitus with hyperglycemia Cigarette smoker motivated to quit Family History Father Substance use disorder Surgical History No history of previous surgery Social History Housing: Condominium Alcohol intake: unknown Patient Tobacco Use Status: Former Tobacco user Tobacco use type: Cigarette e-Cigarette/Vaping Use: Never Used Advance Directives: No Advance Directives Information Provided: Yes Do you have a plan to hurt others: No Plan service: No Current occupational status: employed Cognitive needs: No Hearing needs: No Vision needs: Yes Meds Allergies Allergy/AdvReac Type Severity Reaction Status Date / Time control pills Allergy Unknown DVT, R leg Uncoded 03/08/25 12:31 Active Medications: Current Medications Dextrose (Dextrose 50 % 25 Gm/50 Ml Syringe) 25 gm IVPUSH Q15M PRN; Protocol PRN Reason: per Hypoglycemia Standing Ord. Glucose (Glucose Gel 15 Gm Gel..Gram.) 15 gm PO Q15M PRN; Protocol PRN Reason: per Hypoglycemia Standing Ord. Vancomycin HCl (Vancomycin/Ns) 2,000 mg in 500 mls @ 250 mls/hr IV ONCE ONE Stop: 03/08/25 15:14 Last Admin: 03/08/25 13:24 Dose: 250 mls/hr Insulin Human Lispro (Insulin Lispro 100 Unit/Ml 3 Ml Vial) 0 unit SUBCUT [facility]; Protocol Physical Exam Vital Signs and Narrative: Vital Signs: Last Vital Signs Temp 98.3 F 03/08/25 12:26 Pulse 82 03/08/25 12:26 Resp 18 03/08/25 12:26 BP 118/60 03/08/25 12:26 Pulse Ox 98 03/08/25 12:26 O2 Del Method Room Air 03/08/25 12:26 BMI result Body Mass Index 32.4 Middle-aged female lying in bed in no distress Neck supple, no JVD Regular rate and rhythm, S1-S2 heard Regular breath sounds bilaterally, no wheezing or crackles appreciated Abdomen soft nontender, no guarding, no rigidity Patient is awake, alert and oriented to self, place, time and person ; no focal motor deficit Psych: Normal mood Right 5th toe with discoloration as pictured below and foul-smelling drainage of pus Skin: Other: Results Labs 03/08/25 12:42 03/08/25 12:42 Labs: Laboratory Results - last 24 hr 03/08/25 03/08/25 12:42 13:10 MCV 87.6 MCH 31.0 MCHC 35.3 H RDW 12.6 Plt Count 285 D MPV 9.8 Immature Gran % (Auto) 0.9 H Neut % (Auto) 62.8 Lymph % (Auto) 27.3 [place] % (Auto) 5.6 Eos % (Auto) 2.7 Baso % (Auto) 0.7 Lymph # (Auto) 2.1 [place] # (Auto) 0.4 Eos # (Auto) 0.2 Baso # (Auto) 0.1 Abs Immat Gran (auto) 0.07 H Absolute Neuts (auto) 4.8 Absolute Nucleated RBC 0.000 Nucleated RBC % (auto) 0.0 ESR 39 H Anion Gap 12 Estim Creat Clear Calc 115.6 Estimated GFR > 60 Random Glucose 338 H Lactic Acid 1.4 Calcium 9.4 Total Bilirubin 0.2 AST 15 ALT 25 Alkaline Phosphatase 103 C-Reactive Protein 2.24 H Total Protein 7.1 Albumin 4.2 Imaging Radiologist's Impressions: Impressions Foot X-Ray 03/08/25 11:41 IMPRESSION: 1. Permeative/erosive changes centered within the DIP joint of the fifth digit in keeping with osteomyelitis. Electronically signed by: Sai Tinsley MD 03/08/2025 12:48 PM EDT RP Foot X-Ray 03/08/25 11:43 IMPRESSION: 1. Soft tissue swelling of the hallux without radiographic evidence of osteomyelitis. Electronically signed by: Sai Tinsley MD 03/08/2025 12:49 PM EDT RP Assessment and Plan (1) Toe osteomyelitis, right: Status: Acute Plan This is a 54-year-old female with pertinent history of hmq-[id number]-yasyxqhez type 2 diabetes mellitus who presents to the emergency department for evaluation of right toe pain and concerns of infection. #. Right toe osteomyelitis with diabetic foot infection: Will admit patient with empiric IV vancomycin and Zosyn. No sepsis. Consulted vascular surgery and Infectious Disease, appreciate assistance #. Yvy-karhiaa-xcthwcmni type 2 diabetes mellitus with hyperglycemia: Initiating Accu-Cheks with sliding scale insulin #. Obesity class 1: Diet and exercise Med rec pending DVT prophylaxis: Lovenox Full code Admit as inpatient and will require two night minimum hospital stay for IV antibiotics (as above), which is not possible in a lesser acute setting. Quality Stroke Does the patient have a stroke diagnosis?: No VTE Prior VTE?: No VTE Risk Level:: Medical - moderate - high VTE Device Contraindication: Treatment Not Indicated VTE Drug Contraindication: N/A - Med Ordered
[2025-03-08 15:09] VITALS: BP 108/52; PULSE 69; RESP 13; TEMP 36.3; O2SAT 95
--- NOTE | 2025-03-08 15:11 | PHA.MEDREC ---
Addendum entered by Cedric Baker RPh 03/08/25 15:16: Reviewed by [facility] Original Note: Pharmacy Consult ? Medication Reconciliation Pharmacy has completed the medication reconciliation. Patient [id number] she takes Metformin ER 500 mg BID, tylenol 650 q 6 h prn , Motrin 800 mg (4x 200 mg) q6 h prn, and Nicoderm 14 mg patch daily. Patient states she had completed Amox-Clav 875-125 mg.
--- NOTE | 2025-03-08 15:34 | P.CNID_ITS ---
History of Present Illness Data of Consult Service Date: 03/08/25 Requesting physician: Abraham Dexter Primary Care Provider: Geraldine Jackson MD [facility] Reason for consult: OM right fifth toe She presents with pain on walking right foot. Foot is more swollen and painful over last day. She said she dropped can on foot six weeks ago and part of the can injured skin of fifth toe. She saw ER on 02/02 and then left AMA with 10 days of Keflex and Doxycycline which she took. She says she has neuropathy dorsal surface of foot. She has had eschar on toe over last three weeks and has been scrubbing the area with soap and she says it goes back to looking normal. Her glucose has been elevated to 200-300 despite eating appropriately. [facility] Past Medical History Medical History Type 2 diabetes mellitus with microalbuminuria Mixed dyslipidemia Obesity (BMI 30.0-34.9) Diabetes mellitus with hyperglycemia Cigarette smoker motivated to quit Family History Family History Father Substance use disorder Surgical History Surgical History No history of previous surgery Social History Social History Housing: Condominium Alcohol intake: unknown Patient Tobacco Use Status: Former Tobacco user Tobacco use type: Cigarette e-Cigarette/Vaping Use: Never Used Advance Directives: No Advance Directives Information Provided: Yes Do you have a plan to hurt others: No Plan service: No Current occupational status: employed Cognitive needs: No Hearing needs: No Vision needs: Yes Meds Allergies Allergy/AdvReac Type Severity Reaction Status Date / Time control pills Allergy Unknown DVT, R leg Uncoded 03/08/25 12:31 Active Medications: Current Medications Acetaminophen (Acetaminophen 325 Mg Tablet) 650 mg PO Q6H PRN PRN Reason: Pain, Mild 1-3,fever,headache Calcium Carbonate (Calcium Carbonate 750 Mg Tab.Chew) 750 mg PO Q4H PRN PRN Reason: Heartburn Dextrose (Dextrose 50 % 25 Gm/50 Ml Syringe) 25 gm IVPUSH Q15M PRN; Protocol PRN Reason: per Hypoglycemia Standing Ord. Enoxaparin Sodium (Enoxaparin Sodium 40 Mg/0.4 Ml Syringe) 40 mg SUBCUT Q24H [facility] Glucose (Glucose Gel 15 Gm Gel..Gram.) 15 gm PO Q15M PRN; Protocol PRN Reason: per Hypoglycemia Standing Ord. Piperacillin Sod/Tazobactam (Sod 4.5 gm/ Sodium Chloride) 100 mls @ 200 mls/hr IV Q6H [facility] Vancomycin HCl 1,250 mg/ (Sodium Chloride) 250 mls @ 166.667 mls/hr IV Q12H [facility] Insulin Human Lispro (Insulin Lispro 100 Unit/Ml 3 Ml Vial) 0 unit SUBCUT QIDACHS [facility]; Protocol Magnesium Hydroxide (Milk Of Magnesia 30 Ml Oral.Susp) 30 ml PO DAILY PRN PRN Reason: Constipation Melatonin (Melatonin 3 Mg Tablet) 6 mg PO BEDTIME PRN PRN Reason: Insomnia Ondansetron HCl (Ondansetron Hcl 4 Mg/2 Ml Vial) 4 mg IVPUSH Q8H PRN PRN Reason: Nausea and Vomiting Pharmacy Consult (Consult Rx Vancomycin Dosing) 1 each MISCELLANE DAILY PRN PRN Reason: Consult order Sodium Chloride (0.9 % Sodium Chloride Flush 3 Ml Syringe) 3 ml IVFLUSH QSHIFT [facility] Home Medications ?Medication ?Instructions ?Recorded ?Confirmed ?Last Taken ?Type acetaminophen 325 mg tablet 650 mg PO Q6H PRN Pain 03/08/25 Unknown History ibuprofen 200 mg tablet 800 mg PO Q6H PRN Pain 03/0803/08/25 03/07/25 History nicotine 14 mg/24 hr daily 1 patch transdermal DAILY P RN 03/08/25 03/08/25 Unknown History transdermal patch Nicotine Cravings Physical Exam 2 Vital Signs: Vital Signs: Last Vital Signs Temp 97.4 F 03/08/25 15:09 Pulse 69 03/08/25 15:09 Resp 13 03/08/25 15:09 BP 108/52 L 03/08/25 15:09 Pulse Ox 95 03/08/25 15:09 O2 Del Method Room Air 03/08/25 15:09 BMI result Body Mass Index 32.4 Extrem: Other: diminished sensation bilateral feet eschar tip of fifth toe plus 2 edema foot with pulse plus 2 left foot some darkened area great toe Results Labs 03/08/25 12:42 03/08/25 12:42 Labs: Short CBC 03/08/25 Range/Units 12:42 WBC 7.7 (4.8-10.8) X10*3/uL Hgb 13.5 (12.0-16.0) g/dl Hct 38.2 (37.0-47.0) % Plt Count 285 D (160-400) X10*3/uL BMP 03/08/25 12:42 Sodium 138 Potassium 4.7 Chloride 105 Carbon Dioxide 26 BUN 15 Creatinine 0.66 Calcium 9.4 Liver Function 03/08/25 Range/Units 12:42 Total Bilirubin 0.2 (0.0-1.0) mg/dL AST 15 (5-31) U/L ALT 25 (0-31) U/L Alkaline Phosphatase 103 (39-117) U/L Albumin 4.2 (3.5-5.0) g/dL Assessment and Plan (1) Osteomyelitis: Qualifiers: Osteomyelitis location: other site Osteomyelitis type: other Qualified Code(s): M86.8X8 - Other osteomyelitis, other site Status: Acute Plan OM left fifth toe due to damaged blood supply due to swelling/trauma/tissue necrosis. Would give six weeks IV Daptomycin due to h/o MRSA on nose in past unless other organism shows up in blood cultures with weekly CK and creatinine. Vascular should see to ensure enough blood flow right leg and no PAD so antibiotics would be most successful and see if needs debridement. Diabetic shoes,no barefoot. She understands that OM treatment is not curative but palliative and may recur.
[2025-03-08 15:42] VITALS: BMI 32.6
[2025-03-08 15:55] VITALS: BP 128/75; PULSE 72; RESP 16; TEMP 36.2; O2SAT 98
[2025-03-08] MEDS: 0.9 % Sodium Chloride Flush 3 ML SYRINGE IVFLUSH ×2 (15:56→20:49)
[2025-03-08 16:07] LABS: Glucose, Whole Blood 249 mg/dL (60-115)
[2025-03-08] MEDS: Nicotine 14 MG PATCH.TD24 TRANSDERMA (16:20)
[2025-03-08] MEDS: oxyCODONE HCl Immed Release 5 MG TABLET PO ×2 (17:28→23:42)
--- NOTE | 2025-03-08 17:47 | PC.NURSE ---
MD Dexter made aware pt has absent pedal pulse on the right foot with Doppler, posterior tibial pulse found with Doppler, site marked with skin marker.
[2025-03-08 19:04] VITALS: BP 101/59; PULSE 70; RESP 18; TEMP 36.3; O2SAT 93
[2025-03-08 20:13] LABS: Glucose, Whole Blood 307 mg/dL (60-115)
[2025-03-08 20:40] VITALS: BP 119/65; PULSE 69; RESP 18; O2SAT 95
--- NOTE | 2025-03-08 22:02 | PC.NURSE ---
pt complaining of pain 03/31 and was not due for any pain medication at this time. Doctor notified and one time dose dilaudid ordered and administered after rechecking BP 119/65 as they were running low (previous 101/59).
[2025-03-09 01:58] VITALS: BP 104/56; PULSE 64; RESP 16; O2SAT 96
[2025-03-09 03:16] VITALS: BP 113/55; PULSE 69; RESP 18; TEMP 36.2; O2SAT 95
[2025-03-09 05:32] LABS: MANUAL DIFF FLAG NO
[2025-03-09 05:35] LABS: Hematocrit 35.5 % (37.0-47.0); Hemoglobin 12.4 g/dl (12.0-16.0); Imm Gran Abs Auto 0.05 X10*3/uL (0.00-0.03); Imm Gran Pct Auto 0.6 % (0.0-0.4); Lymphocytes Absolute Auto 2.9 X10*3/uL (1.2-4.9); Mean Corpuscular HGB Conc 34.9 g/dl (31.0-35.0); Mean Corpuscular Hemoglobin 31.3 pg (27.0-33.0); Mean Corpuscular Volume 89.6 fL (80.0-98.0); NRBC Abs Auto 0.000 X10*3/uL (0.0-0.012); NRBC Pct Auto 0.0 /100WBC (0.0-0.2); Platelet Count 273 X10*3/uL (160-400); Red Blood Count 3.96 X10*6/uL (4.20-5.50); White Blood Count 8.0 X10*3/uL (4.8-10.8)
[2025-03-09 05:51] LABS: Anion Gap 10 (12-20); Blood Urea Nitrogen 17 mg/dL (9-16); Calcium 9.1 mg/dL (8.4-10.2); Carbon Dioxide 28 mmol/L (22-29); Chloride 103 mmol/L (96-108); Creatinine Clr Calc Pharmacy 119.6; Estimated Glomerular Filt Rate > 60; Potassium 4.9 mmol/L (3.3-5.1); Sodium 136 mmol/L (135-145)
[2025-03-09 07:25] LABS: Glucose, Whole Blood 304 mg/dL (60-115)
[2025-03-09 07:26] VITALS: BP 133/66; PULSE 70; RESP 18; TEMP 36.1; O2SAT 97
[2025-03-09] MEDS: oxyCODONE HCl Immed Release 5 MG TABLET PO ×3 (07:35→20:13)
[2025-03-09] MEDS: 0.9 % Sodium Chloride Flush 3 ML SYRINGE IVFLUSH ×2 (07:37→20:14)
--- NOTE | 2025-03-09 08:38 | P.PNIM_ITS ---
Subjective Subjective Date of Service: 03/09/25 Interval History: Followed up for toe osteomyelitis. Patient states her pain is well managed and has no acute complaints at this time. No overnight events. Constitutional Constitutional: Reports no additional constitutional complaints Cardiovascular Cardiovascular: Reports no additional cardiovascular complaints Respiratory Respiratory: Reports no additional respiratory complaints Gastrointestinal Gastrointestinal: Reports no additional gastrointestinal complaints Musculoskeletal Musculoskeletal: Reports arthralgias Physical Exam 2 Exam: Exam: Middle-aged female lying in bed in no distress Neck supple, no JVD Regular rate and rhythm, S1-S2 heard Regular breath sounds bilaterally, no wheezing or crackles appreciated Abdomen soft nontender, no guarding, no rigidity Patient is awake, alert and oriented to self, place, time and person ; no focal motor deficit Psych: Normal mood Right 5th toe with discoloration as pictured below and foul-smelling drainage of pus ; left great toe with ecchymosis Vital Signs: Vital Signs: Last Vital Signs Temp 97.0 F 03/09/25 07:26 Pulse 70 03/09/25 07:26 Resp 18 03/09/25 07:26 BP 133/66 03/09/25 07:26 Pulse Ox 97 03/09/25 07:26 O2 Del Method Room Air 03/09/25 07:26 BMI result Body Mass Index 32.6 Skin: Other: Objective Data Active Medications Acetaminophen (Acetaminophen 325 Mg Tablet) 650 mg PO Q6H PRN PRN Reason: Pain, Mild 1-3,fever,headache Calcium Carbonate (Calcium Carbonate 750 Mg Tab.Chew) 750 mg PO Q4H PRN PRN Reason: Heartburn Dextrose (Dextrose 50 % 25 Gm/50 Ml Syringe) 25 gm IVPUSH Q15M PRN; Protocol PRN Reason: per Hypoglycemia Standing Ord. Enoxaparin Sodium (Enoxaparin Sodium 40 Mg/0.4 Ml Syringe) 40 mg SUBCUT Q24H [facility] Last Admin: 03/08/25 15:51 Dose: 40 mg Documented By: ESTER Glucose (Glucose Gel 15 Gm Gel..Gram.) 15 gm PO Q15M PRN; Protocol PRN Reason: per Hypoglycemia Standing Ord. Piperacillin Sod/Tazobactam (Sod 4.5 gm/ Sodium Chloride) 100 mls @ 200 mls/hr IV Q6H [facility] Last Infusion: 03/09/25 06:00 Dose: Infused Documented By: RANDY Vancomycin HCl 1,250 mg/ (Sodium Chloride) 250 mls @ 166.667 mls/hr IV Q12H [facility] Last Infusion: 03/09/25 03:29 Dose: Infused Documented By: RANDY Insulin Human Lispro (Insulin Lispro 100 Unit/Ml 3 Ml Vial) 0 unit SUBCUT QIDACHS [facility]; Protocol Last Admin: 03/09/25 07:34 Dose: 8 unit Documented By: DEBBIE Magnesium Hydroxide (Milk Of Magnesia 30 Ml Oral.Susp) 30 ml PO DAILY PRN PRN Reason: Constipation Melatonin (Melatonin 3 Mg Tablet) 6 mg PO BEDTIME PRN PRN Reason: Insomnia Morphine Sulfate (Morphine Sulfate 4 Mg/Ml Cartridge) 4 mg IVPUSH Q6H PRN; Protocol PRN Reason: Pain, Severe (Pain Scale 7-10) Last Admin: 03/09/25 03:32 Dose: 4 mg Documented By: RANDY Ondansetron HCl (Ondansetron Hcl 4 Mg/2 Ml Vial) 4 mg IVPUSH Q8H PRN PRN Reason: Nausea and Vomiting Oxycodone HCl (Oxycodone Hcl Immed Release 5 Mg Tablet) 5 mg PO Q6H PRN PRN Reason: Pain, Moderate(Pain Scale 4-6) Last Admin: 03/09/25 07:35 Dose: 5 mg Documented By: DEBBIE Pharmacy Consult (Consult Rx Vancomycin Dosing) 1 each MISCELLANE DAILY PRN PRN Reason: Consult order Sodium Chloride (0.9 % Sodium Chloride Flush 3 Ml Syringe) [facility] Last Admin: 03/09/25 07:37 Dose: 3 ml Documented By: DEBBIE Labs 03/09/25 05:19 03/09/25 05:19 Labs: Laboratory Results - last 24 hr 03/08/25 03/08/25 03/08/25 12:42 13:10 15:45 MCV 87.6 MCH 31.0 MCHC 35.3 H RDW 12.6 Plt Count 285 D MPV 9.8 Immature Gran % (Auto) 0.9 H Neut % (Auto) 62.8 Lymph % (Auto) 27.3 [place] % (Auto) 5.6 Eos % (Auto) 2.7 Baso % (Auto) 0.7 Lymph # (Auto) 2.1 [place] # (Auto) 0.4 Eos # (Auto) 0.2 Baso # (Auto) 0.1 Abs Immat Gran (auto) 0.07 H Absolute Neuts (auto) 4.8 Absolute Nucleated RBC 0.000 Nucleated RBC % (auto) 0.0 ESR 39 H Anion Gap 12 Estim Creat Clear Calc 115.6 Estimated GFR > 60 POC Glucose 249 H Random Glucose 338 H Lactic Acid 1.4 Calcium 9.4 Total Bilirubin 0.2 AST 15 ALT 25 Alkaline Phosphatase 103 C-Reactive Protein 2.24 H Total Protein 7.1 Albumin 4.2 03/08/25 03/09/25 03/09/25 20:06 05:19 07:22 MCV 89.6 MCH 31.3 MCHC 34.9 RDW 13.1 Plt Count 273 MPV 9.8 Immature Gran % (Auto) 0.6 H Neut % (Auto) 52.5 Lymph % (Auto) 35.7 [place] % (Auto) 7.4 Eos % (Auto) 3.2 Baso % (Auto) 0.6 Lymph # (Auto) 2.9 [place] # (Auto) 0.6 Eos # (Auto) 0.3 Baso # (Auto) 0.1 Abs Immat Gran (auto) 0.05 H Absolute Neuts (auto) 4.2 Absolute Nucleated RBC 0.000 Nucleated RBC % (auto) 0.0 ESR Anion Gap 10 L Estim Creat Clear Calc 119.6 Estimated GFR > 60 POC Glucose 307 H 304 H Random Glucose 289 H Lactic Acid Calcium 9.1 Total Bilirubin AST ALT Alkaline Phosphatase C-Reactive Protein Total Protein Albumin Assessment and Plan (1) Toe osteomyelitis, right: Status: Acute Plan This is a 54-year-old female with pertinent history of nfv-zuasvhy-apmegebjf type 2 diabetes mellitus who presents to the emergency department for evaluation of right toe pain and concerns of infection. #. Right toe osteomyelitis with diabetic foot infection: Continue IV vancomycin, start date 03/08. No sepsis. Infectious Disease> Will need 6 weeks of IV daptomycin. Awaiting vascular surgery eval #. Hqr-lojcsnr-uaodloqwg type 2 diabetes mellitus with hyperglycemia: Adding basal insulin due to hyperglycemia. Continue Accu-Cheks with sliding scale insulin #. Obesity class 1: Diet and exercise DVT prophylaxis: Lovenox Full code Reason for continued hospitalization: IV antibiotics. Awaiting vascular surgery eval Quality Stroke Does the patient have a stroke diagnosis?: No VTE Prior VTE?: No VTE Risk Level:: Medical - moderate - high VTE Device Contraindication: Treatment Not Indicated VTE Drug Contraindication: N/A - Med Ordered
[2025-03-09 11:28] LABS: Glucose, Whole Blood 306 mg/dL (60-115)
--- NOTE | 2025-03-09 12:56 | HE.PHANOTE ---
Vancomycin Vancomycin level 8.0, predicting subtherapeutic AUC. Increased dose to 1750 mg q12h for predicted AUC of 488. Next level 03/10/25 @1200
[2025-03-09] MEDS: vancomycin HCL 1,000 MG, vancomycin HCL 750 MG in 0.9 % Sodium Chloride 500 ML 267.5 MG IV (14:17)
[2025-03-09] MEDS: Nicotine 14 MG PATCH.TD24 TRANSDERMA (14:33)
[2025-03-09 15:42] VITALS: BP 98/54; PULSE 65; RESP 16; TEMP 36.2; O2SAT 99
[2025-03-09 16:15] LABS: Glucose, Whole Blood 292 mg/dL (60-115)
--- NOTE | 2025-03-09 16:18 | MHC.CM.PN ---
PT REPORTS SHE HAS ONE SON THAT LIVES AT HOME WITH HER SHE IS INDEPENDENT AND WORKS [employer] COPY OF HCP REQUESTED PCP: YON VERONICA DCP: PT REPORTS SHE HAS DONE IV ABX FOR HER MOTHER AND IS MORE THAN COMFORTABLE MANAGING IT AT HOME SHE SAYS SHE WILL ACCEPT THE [facility] FOR A COUPLE VISITS, BUT PLANS TO RETURN TO WORK AFTER A FEW DAYS
[2025-03-09 18:24] VITALS: BP 111/62; PULSE 71
[2025-03-09 19:37] VITALS: BP 106/64; PULSE 71; RESP 18; TEMP 36.7; O2SAT 96
[2025-03-09 19:43] LABS: Glucose, Whole Blood 208 mg/dL (60-115)
[2025-03-09] MEDS: Insulin Glargine,Hum.rec.anlog 100 UNIT/ML 10 ML VIAL 20 UNIT SUBCUT (20:13)
[2025-03-10] MEDS: vancomycin HCL 1,000 MG, vancomycin HCL 750 MG in 0.9 % Sodium Chloride 500 ML 267.5 MG IV (02:06)
[2025-03-10 03:15] VITALS: BP 134/83; PULSE 91; RESP 18; TEMP 36.7; O2SAT 93
[2025-03-10 06:44] LABS: Anion Gap 15 (12-20); Blood Urea Nitrogen 13 mg/dL (9-16); Calcium 9.0 mg/dL (8.4-10.2); Carbon Dioxide 23 mmol/L (22-29); Chloride 105 mmol/L (96-108); Creatinine Clr Calc Pharmacy 132.0; Estimated Glomerular Filt Rate > 60; Potassium 4.6 mmol/L (3.3-5.1); Sodium 138 mmol/L (135-145)
[2025-03-10 06:45] LABS: Creatinine Clr Calc Pharmacy 132.0; Estimated Glomerular Filt Rate > 60
[2025-03-10 07:16] LABS: Glucose, Whole Blood 204 mg/dL (60-115)
--- NOTE | 2025-03-10 07:24 | P.PNIM_ITS ---
Subjective Subjective Date of Service: 03/10/25 Interval History: Pain is controlled, Physical Exam 2 Vital Signs: Vital Signs: Last Vital Signs Temp 98.1 F 03/10/25 03:15 Pulse 91 03/10/25 03:15 Resp 18 03/10/25 03:15 BP 134/83 03/10/25 03:15 Pulse Ox 93 03/10/25 03:15 O2 Del Method Room Air 03/10/25 03:15 BMI result Body Mass Index 32.6 General: AO X 3, no acute distress Skin --see pic Skin: Other: Objective Data Active Medications Acetaminophen (Acetaminophen 325 Mg Tablet) 650 mg PO Q6H PRN PRN Reason: Pain, Mild 1-3,fever,headache Last Admin: 03/10/25 06:17 Dose: 650 mg Documented By: DANYELLE Calcium Carbonate (Calcium Carbonate 750 Mg Tab.Chew) 750 mg PO Q4H PRN PRN Reason: Heartburn Dextrose (Dextrose 50 % 25 Gm/50 Ml Syringe) 25 gm IVPUSH Q15M PRN; Protocol PRN Reason: per Hypoglycemia Standing Ord. Enoxaparin Sodium (Enoxaparin Sodium 40 Mg/0.4 Ml Syringe) 40 mg SUBCUT Q24H [facility] Last Admin: 03/09/25 14:33 Dose: 40 mg Documented By: DEBBIE Glucose (Glucose Gel 15 Gm Gel..Gram.) 15 gm PO Q15M PRN; Protocol PRN Reason: per Hypoglycemia Standing Ord. Vancomycin HCl 1,000 mg/Vancomycin HCl 750 mg/ Sodium Chloride 535 mls @ 267.5 mls/hr IV Q12H [facility] Last Infusion: 03/10/25 04:12 Dose: Infused Documented By: DANYELLE Insulin Glargine (Insulin Glargine,Hum.Rec.Anlog 100 Unit/Ml 10 Ml Vial) 20 unit SUBCUT BEDTIME [facility] Last Admin: 03/09/25 20:13 Dose: 20 unit Documented By: DANYELLE Insulin Human Lispro (Insulin Lispro 100 Unit/Ml 3 Ml Vial) 0 unit SUBCUT QIDACHS [facility]; Protocol Last Admin: 03/09/25 20:14 Dose: 4 unit Documented By: DANYELLE Magnesium Hydroxide (Milk Of Magnesia 30 Ml Oral.Susp) 30 ml PO DAILY PRN PRN Reason: Constipation Melatonin (Melatonin 3 Mg Tablet) 6 mg PO BEDTIME PRN PRN Reason: Insomnia Last Admin: 03/09/25 20:13 Dose: 6 mg Documented By: DANYELLE Morphine Sulfate (Morphine Sulfate 4 Mg/Ml Cartridge) 4 mg IVPUSH Q6H PRN; Protocol PRN Reason: Pain, Severe (Pain Scale 7-10) Last Admin: 03/09/25 18:27 Dose: 4 mg Documented By: DEBBIE Ondansetron HCl (Ondansetron Hcl 4 Mg/2 Ml Vial) 4 mg IVPUSH Q8H PRN PRN Reason: Nausea and Vomiting Oxycodone HCl (Oxycodone Hcl Immed Release 5 Mg Tablet) 5 mg PO Q6H PRN PRN Reason: Pain, Moderate(Pain Scale 4-6) Last Admin: 03/09/25 20:13 Dose: 5 mg Documented By: DANYELLE Pharmacy Consult (Consult Rx Vancomycin Dosing) 1 each MISCELLANE DAILY PRN PRN Reason: Consult order Sodium Chloride (0.9 % Sodium Chloride Flush 3 Ml Syringe) 3 ml IVFLUSH [facility] Last Admin: 03/09/25 20:14 Dose: 3 ml Documented By: DANYELLE Labs 03/09/25 05:19 03/10/25 05:45 Labs: Laboratory Results - last 24 hr 03/09/25 03/09/25 03/09/25 07:22 11:11 11:59 Anion Gap Estim Creat Clear Calc Estimated GFR POC Glucose 304 H 306 H Random Glucose Calcium Random Vancomycin 8.0 L 03/09/25 03/09/25 03/10/25 16:02 19:12 05:45 Anion Gap 15 Estim Creat Clear Calc 132.0 Estimated GFR POC Glucose 292 H 208 H Random Glucose Calcium Random Vancomycin 03/10/25 03/10/25 03/10/25 05:45 05:45 07:11 Anion Gap Estim Creat Clear Calc 132.0 Estimated GFR > 60 > 60 POC Glucose 204 H Random Glucose 226 H Calcium 9.0 Random Vancomycin Microbiology Microbiology Results: Microbiology 03/08/25 13:13 Blood Culture - Preliminary Blood - Venous No growth after 24 hours. 03/08/25 13:10 Blood Culture - Preliminary Blood - Venous No growth after 24 hours. Assessment and Plan (1) Toe osteomyelitis, right: Status: Acute Plan 54/F w/ DM here with right toe pain and found to have acute osteomylitis Right toe acute osteomyelitis associated with diabetes Continue IV vancomycin, start date 03/08. Infectious Disease recommends 6 weeks of IV daptomycin d/t history of MRSA Awaiting vascular surgery eval Zpr-ymywggn-jrspjfgzw type 2 diabetes mellitus with hyperglycemia, FBS > 200 started on Lantus 20 resume metformin continue SSI check A1C Obesity class 1 Diet and exercise advised Tobacco use disorder NRT DVT prophylaxis: Lovenox Full code Reason for continued hospitalization: IV antibiotics. Awaiting vascular surgery eval Quality Stroke Does the patient have a stroke diagnosis?: No VTE Prior VTE?: No VTE Risk Level:: Medical - moderate - high VTE Device Contraindication: Treatment Not Indicated VTE Drug Contraindication: N/A - Med Ordered
[2025-03-10 07:27] VITALS: BP 117/68; PULSE 72; RESP 18; TEMP 36.9; O2SAT 97
[2025-03-10] MEDS: 0.9 % Sodium Chloride Flush 3 ML SYRINGE IVFLUSH ×2 (08:09→20:46)
[2025-03-10] MEDS: oxyCODONE HCl Immed Release 5 MG TABLET PO ×2 (09:17→20:52)
[2025-03-10] MEDS: Nicotine 14 MG PATCH.TD24 TRANSDERMA (10:12)
[2025-03-10] MEDS: Milk of Magnesia 30 ML ORAL.SUSP PO (10:34)
[2025-03-10 11:10] LABS: Glucose, Whole Blood 301 mg/dL (60-115)
--- NOTE | 2025-03-10 13:04 | HE.PHANOTE ---
VANCO DOSE ADJUSTMENT BASED ON SCR AND TROUGH OF 11.8 DOSE INCREASED TO 1250 Q 8H. NEXT LEVEL 03/11 @ 1200
--- NOTE | 2025-03-10 14:35 | PC.NURSE ---
Changed dressing on right 5th toe - betadine swab with dry drsg. No drainage noted and pt tolerated well.
[2025-03-10 16:00] VITALS: BP 116/68; PULSE 71; RESP 18; TEMP 36.8; O2SAT 96
[2025-03-10 16:29] LABS: Glucose, Whole Blood 224 mg/dL (60-115)
[2025-03-10 19:33] LABS: Glucose, Whole Blood 224 mg/dL (60-115)
[2025-03-10 19:42] VITALS: BP 130/97; PULSE 84; RESP 18; TEMP 36.5; O2SAT 95
[2025-03-10] MEDS: Insulin Glargine,Hum.rec.anlog 100 UNIT/ML 10 ML VIAL 20 UNIT SUBCUT (20:46)
[2025-03-11 02:55] VITALS: BP 120/64; PULSE 74; RESP 16; TEMP 36; O2SAT 95
[2025-03-11 07:10] LABS: Creatinine Clr Calc Pharmacy 125.5; Estimated Glomerular Filt Rate > 60
[2025-03-11 07:31] LABS: Glucose, Whole Blood 210 mg/dL (60-115)
[2025-03-11] MEDS: Nicotine 14 MG PATCH.TD24 TRANSDERMA (07:53)
[2025-03-11 08:00] VITALS: BP 110/59; PULSE 72; RESP 18; TEMP 36.2; O2SAT 99
[2025-03-11] MEDS: 0.9 % Sodium Chloride Flush 3 ML SYRINGE IVFLUSH ×2 (08:00→21:02)
--- NOTE | 2025-03-11 09:05 | P.PNIM_ITS ---
Subjective Subjective Date of Service: 03/11/25 Interval History: Pain is controlled, she notes less redness and swelling around the wound Physical Exam 2 Exam: Exam: other than slight improvement in redness no signficant change Vital Signs: Vital Signs: Last Vital Signs Temp 97.2 F 03/11/25 08:00 Pulse 72 03/11/25 08:00 Resp 18 03/11/25 08:00 BP 110/59 L 03/11/25 08:00 Pulse Ox 99 03/11/25 08:00 O2 Del Method Room Air 03/11/25 08:00 BMI result Body Mass Index 32.6 General: AO X 3, no acute distress Skin --see pic Skin: Other: Objective Data Active Medications Acetaminophen (Acetaminophen 325 Mg Tablet) 650 mg PO Q6H PRN PRN Reason: Pain, Mild 1-3,fever,headache Last Admin: 03/10/25 06:17 Dose: 650 mg Documented By: DANYELLE Calcium Carbonate (Calcium Carbonate 750 Mg Tab.Chew) 750 mg PO Q4H PRN PRN Reason: Heartburn Dextrose (Dextrose 50 % 25 Gm/50 Ml Syringe) 25 gm IVPUSH Q15M PRN; Protocol PRN Reason: per Hypoglycemia Standing Ord. Enoxaparin Sodium (Enoxaparin Sodium 40 Mg/0.4 Ml Syringe) 40 mg SUBCUT Q24H [facility] Last Admin: 03/10/25 14:06 Dose: 40 mg Documented By: MIKE Glucose (Glucose Gel 15 Gm Gel..Gram.) 15 gm PO Q15M PRN; Protocol PRN Reason: per Hypoglycemia Standing Ord. Vancomycin HCl 1,250 mg/ (Sodium Chloride) 250 mls @ 166.667 mls/hr IV Q8H [facility] Last Infusion: 03/11/25 07:27 Dose: Infused Documented By: ESTER Insulin Glargine (Insulin Glargine,Hum.Rec.Anlog 100 Unit/Ml 10 Ml Vial) 20 unit SUBCUT BEDTIME [facility] Last Admin: 03/10/25 20:46 Dose: 20 unit Documented By: DANYELLE Insulin Human Lispro (Insulin Lispro 100 Unit/Ml 3 Ml Vial) 0 unit SUBCUT QIDACHS [facility]; Protocol Last Admin: 03/11/25 07:52 Dose: 4 unit Documented By: ESTER Magnesium Hydroxide (Milk Of Magnesia 30 Ml Oral.Susp) 30 ml PO DAILY PRN PRN Reason: Constipation Last Admin: 03/10/25 10:34 Dose: 30 ml Documented By: MIKE Melatonin (Melatonin 3 Mg Tablet) 6 mg PO BEDTIME PRN PRN Reason: Insomnia Last Admin: 03/10/25 20:45 Dose: 6 mg Documented By: DANYELLE Metformin HCl (Metformin Hcl Er 500 Mg Tab.Er.24h) 500 mg PO BID [facility] Last Admin: 03/11/25 07:53 Dose: 500 mg Documented By: ESTER Morphine Sulfate (Morphine Sulfate 4 Mg/Ml Cartridge) 4 mg IVPUSH Q6H PRN; Protocol PRN Reason: Pain, Severe (Pain Scale 7-10) Last Admin: 03/10/25 19:13 Dose: 4 mg Documented By: DANYELLE Nicotine (Nicotine 14 Mg Patch.Td24) 14 mg TRANSDERMA DAILY [facility] Last Admin: 03/11/25 07:53 Dose: 14 mg Documented By: ESTER Ondansetron HCl (Ondansetron Hcl 4 Mg/2 Ml Vial) 4 mg IVPUSH Q8H PRN PRN Reason: Nausea and Vomiting Oxycodone HCl (Oxycodone Hcl Immed Release 5 Mg Tablet) 5 mg PO Q6H PRN PRN Reason: Pain, Moderate(Pain Scale 4-6) Last Admin: 03/10/25 20:52 Dose: 5 mg Documented By: DANYELLE Pharmacy Consult (Consult Rx Vancomycin Dosing) 1 each MISCELLANE DAILY PRN PRN Reason: Consult order Sodium Chloride (0.9 % Sodium Chloride Flush 3 Ml Syringe) 3 ml IVFLUSH QSHIFT [facility] Last Admin: 03/11/25 08:00 Dose: 3 ml Documented By: ESTER Labs 03/09/25 05:19 03/11/25 05:32 Labs: Laboratory Results - last 24 hr 03/10/25 03/10/25 03/10/25 11:06 12:09 16:25 Hold Purple Top Estim Creat Clear Calc Estimated GFR POC Glucose 301 H 224 H Random Vancomycin 11.8 L 03/10/25 03/11/25 03/11/25 19:26 05:32 07:06 Hold Purple Top SEE NOTE Estim Creat Clear Calc 125.5 Estimated GFR > 60 POC Glucose 224 H 210 H Random Vancomycin Microbiology Microbiology Results: Microbiology 03/08/25 13:13 Blood Culture - Preliminary Blood - Venous No growth after 48 hours. 03/08/25 13:10 Blood Culture - Preliminary Blood - Venous No growth after 48 hours. Assessment and Plan (1) Toe osteomyelitis, right: Status: Acute Plan 54/F w/ DM here with right toe pain and found to have acute osteomylitis Right toe acute osteomyelitis associated with diabetes Continue IV vancomycin, start date 03/08. Infectious Disease recommends 6 weeks of IV daptomycin d/t history of MRSA Vascular surgery recommends no intervention Kcg-[id number] type 2 diabetes mellitus with hyperglycemia, FBS > 200 started on Lantus 20, increase to 25 today continue metformin continue SSI check A1C Obesity class 1 Diet and exercise advised Tobacco use disorder NRT DVT prophylaxis: Lovenox Full code Reason for continued hospitalization: IV antibiotics. Awaiting vascular surgery eval Quality Stroke Does the patient have a stroke diagnosis?: No VTE Prior VTE?: No VTE Risk Level:: Medical - moderate - high VTE Device Contraindication: Treatment Not Indicated VTE Drug Contraindication: N/A - Med Ordered
--- NOTE | 2025-03-11 10:48 | P.CONGS_ITS ---
History of Present Illness Consult details Consult date: 03/11/25 Reason for consult: wound care (Nonhealing right 5th toe ulcer) Narrative: Complex 54-year-old female with a history of diabetes along with smoking history presents with nonhealing right 5th toe ulcer. She reports this all began after a can fell on her foot. The right 5th toe became discolored and more gangrenous over time. She became concerned and presented to the hospital. She was actually seen earlier on 02/02/2025. At that time she refused admission for the condition. She is now in the hospital for workup. Review of Systems 2 Review of Systems: Yes all other systems are reviewed and are negative Constitutional: Constitutional: Reports no additional constitutional complaints ENT: Reports Normal hearing present Cardiovascular: Cardiovascular: Denies chest pain, Denies chest pain at rest, Denies chest pain with activity and Denies pedal edema Respiratory: Respiratory: Denies cough Gastrointestinal: Gastrointestinal: Denies abdominal pain Musculoskeletal: Musculoskeletal: Denies abnormal gait, Denies muscle cramps and Denies radiating pain into limb Integumentary/Breasts: Skin/Breast: Denies skin ulcer and Denies wounds Neurologic: Reports Normal hearing present and Denies abnormal gait Psychiatric: Psychiatric: Reports no additional psychiatric complaints PMFSH Past Medical History Medical History Type 2 diabetes mellitus with microalbuminuria Mixed dyslipidemia Obesity (BMI 30.0-34.9) Diabetes mellitus with hyperglycemia Cigarette smoker motivated to quit Family History Family History Father Substance use disorder Surgical History Surgical History No history of previous surgery Social History Social History Household Members: Children Housing: House Alcohol intake: unknown Patient Tobacco Use Status: Former Tobacco user Tobacco use type: Cigarette e-Cigarette/Vaping Use: Never Used service: No Current occupational status: employed Cognitive needs: No Hearing needs: No Vision needs: Yes Meds Allergies Allergy/AdvReac Type Severity Reaction Status Date / Time control pills Allergy Unknown DVT, R leg Uncoded 03/08/25 12:31 Active Medications: Current Medications Acetaminophen (Acetaminophen 325 Mg Tablet) 650 mg PO Q6H PRN PRN Reason: Pain, Mild 1-3,fever,headache Last Admin: 03/10/25 06:17 Dose: 650 mg Calcium Carbonate (Calcium Carbonate 750 Mg Tab.Chew) 750 mg PO Q4H PRN PRN Reason: Heartburn Dextrose (Dextrose 50 % 25 Gm/50 Ml Syringe) 25 gm IVPUSH Q15M PRN; Protocol PRN Reason: per Hypoglycemia Standing Ord. Enoxaparin Sodium (Enoxaparin Sodium 40 Mg/0.4 Ml Syringe) 40 mg SUBCUT Q24H [facility] Last Admin: 03/10/25 14:06 Dose: 40 mg Glucose (Glucose Gel 15 Gm Gel..Gram.) 15 gm PO Q15M PRN; Protocol PRN Reason: per Hypoglycemia Standing Ord. Vancomycin HCl 1,250 mg/ (Sodium Chloride) 250 mls @ 166.667 mls/hr IV Q8H [facility] Last Infusion: 03/11/25 07:27 Dose: Infused Insulin Glargine (Insulin Glargine,Hum.Rec.Anlog 100 Unit/Ml 10 Ml Vial) 20 unit SUBCUT BEDTIME [facility] Last Admin: 03/10/25 20:46 Dose: 20 unit Insulin Human Lispro (Insulin Lispro 100 Unit/Ml 3 Ml Vial) 0 unit SUBCUT QIDACHS [facility]; Protocol Last Admin: 03/11/25 07:52 Dose: 4 unit Magnesium Hydroxide (Milk Of Magnesia 30 Ml Oral.Susp) 30 ml PO DAILY PRN PRN Reason: Constipation Last Admin: 03/10/25 10:34 Dose: 30 ml Melatonin (Melatonin 3 Mg Tablet) 6 mg PO BEDTIME PRN PRN Reason: Insomnia Last Admin: 03/10/25 20:45 Dose: 6 mg Metformin HCl (Metformin Hcl Er 500 Mg Tab.Er.24h) 500 mg PO BID [facility] Last Admin: 03/11/25 07:53 Dose: 500 mg Morphine Sulfate (Morphine Sulfate 4 Mg/Ml Cartridge) 4 mg IVPUSH Q6H PRN; Protocol PRN Reason: Pain, Severe (Pain Scale 7-10) Last Admin: 03/10/25 19:13 Dose: 4 mg Nicotine (Nicotine 14 Mg Patch.Td24) 14 mg TRANSDERMA DAILY [facility] Last Admin: 03/11/25 07:53 Dose: 14 mg Ondansetron HCl (Ondansetron Hcl 4 Mg/2 Ml Vial) 4 mg IVPUSH Q8H PRN PRN Reason: Nausea and Vomiting Oxycodone HCl (Oxycodone Hcl Immed Release 5 Mg Tablet) 5 mg PO Q6H PRN PRN Reason: Pain, Moderate(Pain Scale 4-6) Last Admin: 03/10/25 20:52 Dose: 5 mg Pharmacy Consult (Consult Rx Vancomycin Dosing) 1 each MISCELLANE DAILY PRN PRN Reason: Consult order Sodium Chloride (0.9 % Sodium Chloride Flush 3 Ml Syringe) [facility] Last Admin: 03/11/25 08:00 Dose: 3 ml Home Medications ?Medication ?Instructions ?Recorded ?Confirmed ?Last Taken ?Type acetaminophen 325 mg tablet 650 mg PO Q6H PRN Pain 03/08/25 Unknown History ibuprofen 200 mg tablet 800 mg PO Q6H PRN Pain 03/0803/08/25 03/07/25 History nicotine 14 mg/24 hr daily 1 patch transdermal DAILY P RN 03/08/25 03/08/25 Unknown History transdermal patch Nicotine Cravings Physical Exam 2 Vital Signs: Vital Signs: Last Vital Signs Temp 97.2 F 03/11/25 08:00 Pulse 72 03/11/25 08:00 Resp 18 03/11/25 08:00 BP 110/59 L 03/11/25 08:00 Pulse Ox 99 03/11/25 08:00 O2 Del Method Room Air 03/11/25 08:00 BMI result Body Mass Index 32.6 Const: General: cooperative, healthy appearing and comfortable O rientation/consciousness: oriented to person, oriented to place and oriented to time HEENT: Head: Yes normal to inspection Neck: Neck: Yes normal visual inspection Carotids: no bruits Chest: Chest palpation & inspection: normal inspection of the chest Resp: Effort & Inspection: normal respiratory effort and able to speak in complete sentences Auscultation: clear to auscultation bilaterally, no crackles, no rales, no rhonchi and no wheezes Cardio: Other: Bilateral DP signals Rate: regular rate Rhythm: regular rhythm Heart sounds: S1 normal heart sound present and S2 normal heart sound present Bruits: no carotid bruits Peripheral pulses: Peripheral pulses 2+ throughout GI: Inspection: Yes normal to inspection Skin: Other: Right 5th toe dry gangrene Wounds: wounds noted (See above) Hair: normal Neuro: General: oriented to person, oriented to place and oriented to time Cranial nerves: Yes CN's II-XII intact bilaterally and Yes Normal hearing present Cognition (Neuro): normal cognition Motor exam (neuro): 5/5 motor strength present throughout Extrem: Other: venous exam: No significant superficial varicosities or spider telangiectasias, minimal edema General: No clubbing, No cyanosis and No edema Psych: Appearance: grossly normal Mental Status: mental status grossly normal Speech and movement: Normal speech and movement present Results Labs 03/09/25 05:19 03/11/25 05:32 Labs: Abnormal lab results 03/10/25 03/10/25 03/10/25 Range/Units 11:06 12:09 16:25 POC Glucose 301 H 224 H (60-115) mg/dL Random Vancomycin 11.8 L (15-20) mcg/mL 03/10/25 03/11/25 Range/Units 19:26 07:06 POC Glucose 224 H 210 H (60-115) mg/dL Random Vancomycin (15-20) mcg/mL BMP 03/11/25 05:32 Creatinine 0.61 All other labs normal. Assessment and Plan (1) PAD (peripheral artery disease): Status: Acute Plan In short patient has a nonhealing right foot ulcer. She may have an underlying element of PA D. Was unable to appreciate palpable pulses in addition she has a history of diabetes and most recently quit smoking. I have taken the liberty of ordering noninvasive arterial testing. I did explain the underlying pathophysiology to her and the importance of correcting her arterial status in order to try to help heal the wound. She is at risk of losing that distal aspect of that right 5th toe. In addition she was concerned about the PICC line and I did explain that thrombus around the catheter is a very common complication and can be easily treated with anticoagulants. Once again we will obtain arterial testing and we will continue to follow with you. Thank you for allowing us to assist in her care. If there are any questions or concerns please do not hesitate to contact us Procedures Date of Service Date of Service: 03/11/25
[2025-03-11] MEDS: oxyCODONE HCl Immed Release 5 MG TABLET PO ×2 (11:07→20:54)
[2025-03-11 11:29] LABS: Glucose, Whole Blood 277 mg/dL (60-115)
--- NOTE | 2025-03-11 12:54 | HE.PHANOTE ---
Re: Jose Luis Renal function has declined, trough returned at 15.8. Pt is therapeutic. Continue current dose of 1250mg q8h with predicted AUC 501, predicted trough 14.1. Next trough 03/12 @ 1200.
--- NOTE | 2025-03-11 15:25 | MHC.CM.PN ---
pt not medically rady for dc waiting for a picc line
[2025-03-11 16:00] VITALS: BP 131/63; PULSE 72; RESP 18; TEMP 36.2; O2SAT 97
--- NOTE | 2025-03-11 17:38 | HO.PICC ---
PICC Line Insertion NPICC Diagnosis: Osteomyelitis-right toe Indication: [facility] antibiotics needed Pertinent Labs: reviewed Technique: Following informed consent including risks, benefits and alternatives and using sterile technique including cap and mask, sterile gown, glove and drape, the right arm was prepped and draped in the usual sterile fashion of full barrier technique with G. Following completion of [employer] Protocol the skin and soft tissues were anesthetized with 1% Lidocaine plain. Using ultrasound guidance, right brachial vein access was obtained on first attempt. Over an 0.018 wire through peel-away sheath, a 4FR single lumen PASV PICC line was positioned. Catheter length is 42 CM internal length, 0 CM external length, for a total trimmed length of 42 CM. The procedure was performed in S272. Tip verification was performed by Ney Quiñones with Diony 3CG. Tip located in SVC. Ultrasound was used to document vein patency and for needle entry. A formal ultrasound picture and cardiac rhythm strip was recorded. [facility] has released the line for use and it is currently dressed with a StatLock, Tegaderm, and CHG disc. Verification has been performed for blood return and line patency. Arm Circumference: 37 CM Equipment: [employer] PowerPICC SOLO Catheter Type: 4FR single lumen PASV PICC Lot #: [id number]
[2025-03-11 19:06] VITALS: BP 123/75; PULSE 79; RESP 18; TEMP 36.4; O2SAT 99
[2025-03-11 19:08] LABS: Glucose, Whole Blood 229 mg/dL (60-115)
[2025-03-11 20:26] LABS: Glucose, Whole Blood 265 mg/dL (60-115)
[2025-03-11] MEDS: Insulin Glargine,Hum.rec.anlog 100 UNIT/ML 10 ML VIAL 20 UNIT SUBCUT (20:56)
[2025-03-12 06:53] LABS: Creatinine Clr Calc Pharmacy 127.6; Estimated Glomerular Filt Rate > 60
[2025-03-12 07:13] VITALS: BP 117/66; PULSE 76; RESP 18; TEMP 36.2; O2SAT 95
[2025-03-12 07:15] LABS: Glucose, Whole Blood 234 mg/dL (60-115)
[2025-03-12] MEDS: DAPTOmycin 600 MG in 0.9 % Sodium Chloride 50 ML 100 MG IV (07:51)
[2025-03-12] MEDS: Nicotine 14 MG PATCH.TD24 TRANSDERMA (07:51)
[2025-03-12] MEDS: oxyCODONE HCl Immed Release 5 MG TABLET PO (07:57)
--- NOTE | 2025-03-12 08:23 | P.DS_ITS ---
DS: Providers Provider Date of Service: 03/12/25 <Chemo Dunbar MD - Last Filed: 03/12/25 13:51> Date of admission: 03/08/25 13:33 <Juan Ramon Buckley MD - Last Filed: 03/12/25 08:42> Date of discharge: 03/12/25 <Chemo Dunbar MD - Last Filed: 03/12/25 13:51> Primary care physician: Geraldine Jackson MD <Juan Ramon Buckley MD - Last Filed: 03/12/25 08:42> Consults: 03/08/25 14:19 Consult to Infectious Diseases Routine Consulting Provider: [facility] Infectious Disease Center Reason for consultation: toe osteomyelitis 03/08/25 14:23 Consult to Vascular Surgery Routine Consulting Provider: [facility] Vascular Services Reason for consultation: toe osteomyelitis 03/11/25 14:05 Consult to Wound Care Routine Reason for consultation: right foot 5th toe ulcer 03/12/25 09:00 Consult to Infectious Diseases Routine Consulting Provider: [facility] Infectious Disease Center Reason for consultation: DAPTOMYCIN <Juan Ramon Buckley MD - Last Filed: 03/12/25 08:42> Attending physician on discharge: Chemo Dunbar <Chemo Dunbar MD - Last Filed: 03/12/25 13:51> Discharging clinician: Chemo Dunbar MD - Last Filed: 03/12/25 13:51> DS: Diagnosis Discharge Diagnosis (1) PAD (peripheral artery disease): Status: Acute <Juan Ramon Buckley MD - Last Filed: 03/12/25 08:42> DS: Summary Hospital Course Hospital Course: admission hpi Chief Complaint: toe pain This is a 54-year-old female with pertinent history of fid-fqyjggj-wrkxzhdju type 2 diabetes mellitus who presents to the emergency department for evaluation of right toe pain and concerns of infection. Patient was seen in the ER on 02/02/2025 for similar complaints when she refused admission at that time and was discharged with p.o. antibiotics. Patient states her symptoms have persisted and she has noticed purulent foul-smelling drainage from right 5th toe. She recently went on a vacation at a beach and after contact with water her right toe infection worsened. She also has been having pain with ambulation over the right 5th toe. Patient states she banged her left great toe against something during vacation and noted discoloration. No drainage from left toe. No fever or chills. No nausea, vomiting, chest pain, palpitations, abdominal pain, changes in urinary or bowel habits. Patient does not take insulin at home but is compliant with home metformin. In the emergency department, imaging concerning for right 5th toe osteomyelitis. Hospital course: Patient has longstanding diabete that is poor controlled and presented with right 5th toe ulcer with fould drainage, xay show Permeative/erosive changes centered within the DIP joint of the fifth digit in keeping with osteomyelitis . She has been treated with Vancomycin while in the hospital . ID recommends 6 weeks of Daptomycin with weekly CPK check. Last day will be April 22 2025. in addition-Seen by vasclar surgery no indication for intervention.:In short patient has a nonhealing ulcer. Patient does have an element of PAD. It appears that she does have SFA disease. She will follow up with us as an outpatient to schedule angiogram. We did discuss risks benefits of the angiogram and the importance of improving arterial flow for wound healing. Once again she will follow up with us as an outpatient. Will add aspirin 81 mg daily. Discussed with the ID and vascular: hold statin until complete daptomycin. Aas-tvubgxi-hkovarodx type 2 diabetes mellitus with hyperglycemia, she has been on Metformin 500 mg bid only, Blood sugars have been consistently between 200 and 300. She has been on Lantus and sliding scale and will discharge with insulin lantus pen and slidding scale in addition to continuing Metformin. Obesity class 1 Diet and exercise advised Tobacco use disorder: continue NRT,advised to abstain from smoking . plan: Take Daptomycin 600 mg IV daily via PICC Line daily for 41 more day from today, end date Apr 22, 2025. Continue Lantus as prescribed. consider moniter cbc ,cmp,cpk qweekly while on antibiotics, hold statin until complete daptomycin. Take insulin as directed for diabetes, write down your sugars and follow up with your PCP in a week. Above management discussed with the patient in detail length she understand and in agreement with the above plan, Patient understand in agreement with the plan, time spent 50 minute .all questions answered. Staff was during conversation <Juan Ramon Buckley MD - Last Filed: 03/12/25 08:42> Time Attestation Total time managing care of this patient today: 50 mintues. <Chemo Dunbar MD - Last Filed: 03/12/25 13:51> Discharge Coordination Time (in mins): 45 <Juan Ramon Buckley MD - Last Filed: 03/12/25 08:42> 50 <Chemo Dunbar MD - Last Filed: 03/12/25 13:51> Quality: Safe Use of Opioids Does Pt have an Active Cancer Diagnosis on the Problem List?: No <Juan Ramon Buckley MD - Last Filed: 03/12/25 08:42> Quality: Stroke Does the patient have a stroke diagnosis?: No <Juan Ramon Buckley MD - Last Filed: 03/12/25 08:42> Physical Exam Exam: Exam: Appearance: Alert.? Oriented X3.?. cvs: rrr, [id number] , no murmur res: Fair air entry, no rales or wheezing. abd: no rebound or guarding ,nt, bs present. ext pulses present , no cyanosis.Right 5th toe area : no dischange ,erythema improving-please see pic from h&P note. neuro: axo3 , nonfocal. <Chemo Dunbar MD - Last Filed: 03/12/25 13:51> Vital Signs: Vital Signs: Last Vital Signs Temp 97.1 F 03/12/25 07:13 Pulse 76 03/12/25 07:13 Resp 18 03/12/25 07:13 BP 117/66 03/12/25 07:13 Pulse Ox 95 03/12/25 07:13 O2 Del Method Room Air 03/12/25 07:13 BMI result Body Mass Index 32.6 <Juan Ramon Buckley MD - Last Filed: 03/12/25 08:42> DS: Data Data Completed and Pending Labs on day of discharge: Laboratory Results - last 24 hr 03/11/25 03/11/25 03/11/25 11:20 12:27 19:04 Hold Purple Top Creatinine Estim Creat Clear Calc Estimated GFR POC Glucose 277 H 229 H Random Vancomycin 15.8 03/11/25 03/12/25 03/12/25 20:22 05:21 07:06 Hold Purple Top SEE NOTE Creatinine 0.60 Estim Creat Clear Calc 127.6 Estimated GFR > 60 POC Glucose 265 H 234 H Random Vancomycin Preliminary micro results at discharge 03/08/25 13:13 Blood Culture - Preliminary Blood - Venous No growth after 48 hours. 03/08/25 13:10 Blood Culture - Preliminary Blood - Venous No growth after 48 hours. <Juan Ramon Buckley MD - Last Filed: 03/12/25 08:42> Imaging Chest x-ray: Radiologist's impression: ITS Impressions Foot X-Ray 03/08/25 11:41 IMPRESSION: 1. Permeative/erosive changes centered within the DIP joint of the fifth digit in keeping with osteomyelitis. Foot X-Ray 03/08/25 11:43 IMPRESSION: 1. Soft tissue swelling of the hallux without radiographic evidence of osteomyelitis. Arterial/Peripheral Duplex 03/11/25 18:16 IMPRESSION: Right leg: Severe inflow disease from the distal superficial femoral artery to the dorsalis pedis artery. Left leg: Severe inflow disease in the anterior tibialis artery. LOS Reference: - >1.4 = calcified vessels - 0.9 - 1.4 = normal - no significant arterial disease - 0.7 - 0.89 = mild peripheral arterial disease - 0.51 - 0.69 = moderate peripheral arterial disease - 0.50 = severe peripheral arterial disease - < .30 = critical arterial disease <Chemo Dunbar MD - Last Filed: 03/12/25 13:51> Discharge Plan Discharge Anticipated Discharge Date/Time: 03/12/25 08:28 <Juan Ramon Buckley MD - Last Filed: 03/12/25 08:42> Patient Disposition: Home Health Service <Juan Ramon Buckley MD - Last Filed: 03/12/25 08:42> Discharge Diagnosis: right toe oseto. <Juan Ramon Buckley MD - Last Filed: 03/12/25 08:42> right toe oseto. <Chemo Dunbar MD - Last Filed: 03/12/25 13:51> Referrals: [facility] [Other] - 1 Week Referral Note: [facility] will deliver your antibiotics and provide nursing visits Geraldine Jackson MD [Primary Care Provider, Internal Medicine] - 1 Week <Juan Ramon Buckley MD - Last Filed: 03/12/25 08:42> Discharge Medications: New daptomycin 500 mg Recon Soln 600 mg IV Q24H Qty: 41 0RF Rx Instructions: starting tomorrow 03/12 insulin lispro [Humalog KwikPen Insulin] 100 unit/mL insulin pen 1 sliding scale dose SUBCUT QIDACHS MDD 40units 90 Days Qty: 15 0RF Rx Instructions: Blood Sugar: <150 - 0 units 151-200 - 2 units 201-250 - 4 units 251-300 - 6 units 301-350 - 8 units >350 - 10 units insulin glargine [Lantus Solostar U-100 Insulin] 100 unit/mL (3 mL) insulin pen 25 unit SUBCUT BEDTIME 90 Days Qty: 22.5 0RF aspirin 81 mg capsule 81 mg PO DAILY Qty: 30 0RF nicotine 14 mg/24 hr Patch 24 Hour 14 mg transdermal DAILY Qty: 7 0RF oxycodone 5 mg Tablet 5 mg PO Q6H PRN (Reason: Pain, Moderate(Pain Scale 4-6)) Qty: 24 0RF Rx Instructions: Partial Fill upon patient request. omeprazole 20 mg capsule,delayed release(DR/EC) 20 mg PO DAILY Qty: 30 0RF docusate sodium [Colace] 100 mg capsule 100 mg PO DAILY PRN (Reason: constipation) Qty: 30 0RF polyethylene glycol 3350 [Miralax] 17 gram/dose powder 17 g PO DAILY PRN (Reason: constipation) Qty: 119 0RF Continued (DME) lancets [OneTouch Delica Plus Lancet] 30 gauge misc See Rx Instructions .Route Qty: 200 0RF Rx Instructions: Check blood sugar twice daily (DME) OneTouch Verio test strips Strip See Rx Instructions .Route Qty: 100 5RF Rx Instructions: Check blood sugar twice daily as directed acetaminophen 325 mg Tablet 650 mg PO Q6H PRN (Reason: Pain) nicotine 14 mg/24 hr Patch 24 Hour 1 patch TRANSDERMAL DAILY PRN (Reason: Nicotine Cravings) (DME) blood-glucose meter [OneTouch Verio Flex meter] Misc See Rx Instructions .Route Qty: 1 0RF Rx Instructions: Check fasting blood sugar twice a day before meals (DME) OneTouch Ultra Test Strip See Rx Instructions .Route Qty: 100 5RF Rx Instructions: Go check fasting blood sugar twice a day before meals metformin 500 mg tablet extended release 24 hr 500 mg PO BID 90 Days Qty: 180 0RF Changed ibuprofen 200 mg Tablet 800 mg PO Q12H PRN (Reason: Pain) Qty: 1 0RF <Juan Ramon Buckley MD - Last Filed: 03/12/25 08:42> Discharge Orders: Discharge Order (Routine); Ordered 03/12/25 Ordered By: Chemo Dunbar <Juan Ramon Buckley MD - Last Filed: 03/12/25 08:42> Diet: low fat diet <Juan Ramon Buckley MD - Last Filed: 03/12/25 08:42> low fat diet <Chemo Dunbar MD - Last Filed: 03/12/25 13:51> Activity on Discharge: As tolerated <Juan Ramon Buckley MD - Last Filed: 03/12/25 08:42> As tolerated <Chemo Dunbar MD - Last Filed: 03/12/25 13:51> Stand Alone Forms: Patient Portal Discharge page <Juan Ramon Buckley MD - Last Filed: 03/12/25 08:42> Print Language: Argentine <Juan Ramon Buckley MD - Last Filed: 03/12/25 08:42> Care Plan Goals: recovery from osteomylitis of the toe <Juan Ramon Buckley MD - Last Filed: 03/12/25 08:42> Health Concerns: Osteomylitis of the toe <Juan Ramon Buckley MD - Last Filed: 03/12/25 08:42> Plan of Treatment: Take Daptomycin 600 mg IV daily via PICC Line daily for 41 more day from today, end date Apr 22, 2025 consider moniter cbc ,cmp,cpk qweekly while on antibiotics, hold off statin until complete antibiotics . advised to abstain from smoking Take insulin as directed for diabetes, write down your sugars and follow up with your PCP in a week <Juan Ramon Buckley MD - Last Filed: 03/12/25 08:42> Assessment: see above <Juan Ramon Buckley MD - Last Filed: 03/12/25 08:42> Patient Instructions: Omeprazole (By mouth) (Prilosec, Prilosec OTC, Omeclamox-Baldomero, First..., Oxycodone, Rapid Release (By mouth) (ETH-Oxydose, Oxy IR,..., Insulin Lispro Protamine/Insulin Lispro (By injection) (Humalog Mix..., Daptomycin (By injection) (Cubicin, Dapzura RT), Insulin Glargine (By injection) (Lantus, Lantus SolSusan, Toutanya, Semglanjelica) <Juan Ramon Buckley MD - Last Filed: 03/12/25 08:42> Discharge Date/Time: 03/12/25 13:11 <Juan Ramon Buckley MD - Last Filed: 03/12/25 08:42>
[2025-03-12 08:52] LABS: Anion Gap 15 (12-20); Blood Urea Nitrogen 15 mg/dL (9-16); Calcium 9.0 mg/dL (8.4-10.2); Carbon Dioxide 23 mmol/L (22-29); Chloride 105 mmol/L (96-108); Potassium 4.1 mmol/L (3.3-5.1); Sodium 139 mmol/L (135-145)
--- NOTE | 2025-03-12 09:31 | MHC.CM.PN ---
Patient medically cleared for dc home w/ 6 wks dapto. PICC in place. [facility] will provide antibiotics and weekly nursing for dressing change and labs (does not want VNA and is going back to work). Patient completed virtual teach with [facility] RN and feels very comfortable managing the IV abx independently, has also helped administer for a family member previously. Son will transport home.
[2025-03-12 09:33] LABS: Hemoglobin A1C 307.9953 umol/L; Total Hemoglobin (HGBA1C) 3352.1828 umol/L
--- NOTE | 2025-03-12 10:53 | HO.VASCPN ---
Subjective Subjective Date of Service: 03/12/25 Patient reports: no new complaints and feels better Interval history: Patient seen and examined. No significant events overnight. Underwent PICC line placement yesterday. And reports she is doing fairly well. Now for routine follow-up. Physical Exam Vital Signs: Vital Signs: Last Vital Signs Temp 97.1 F 03/12/25 07:13 Pulse 76 03/12/25 07:13 Resp 18 03/12/25 07:13 BP 117/66 03/12/25 07:13 Pulse Ox 95 03/12/25 07:13 O2 Del Method Room Air 03/12/25 07:13 BMI result Body Mass Index 32.6 Const: General: cooperative, healthy appearing and comfortable Orientation/consciousness: oriented to person, oriented to place and oriented to time HEENT: Head: Yes normal to inspection Neck: Neck: Yes normal visual inspection Carotids: no bruits Chest: Chest palpation & inspection: normal inspection of the chest Resp: Effort & Inspection: normal respiratory effort and able to speak in complete sentences Auscultation: clear to auscultation bilaterally, no crackles, no rales, no rhonchi and no wheezes Cardio: Other: Bilateral DP signals Rate: regular rate Rhythm: regular rhythm Heart sounds: S1 normal heart sound present and S2 normal heart sound present Bruits: no carotid bruits GI: Inspection: Yes normal to inspection Skin: Other: Right 5th toe dry gangrene Wounds: no wounds Hair: normal Neuro: General: oriented to person, oriented to place and oriented to time Cranial nerves: Yes CN's II-XII intact bilaterally and Yes Normal hearing present Cognition (Neuro): normal cognition Motor exam (neuro): 5/5 motor strength present throughout Extrem: Other: venous exam: No significant superficial varicosities or spider telangiectasias, minimal edema General: No clubbing, No cyanosis and No edema Psych: Appearance: grossly normal Mental Status: mental status grossly normal Speech and movement: Normal speech and movement present Progress Note: A&P Assessment and plan (1) PAD (peripheral artery disease): Status: Acute Assessment and Plan: In short patient has a nonhealing ulcer. Patient does have an element of PA D. It appears that she does have SFA disease. She will follow up with us as an outpatient to schedule angiogram. We did discuss risks benefits of the angiogram and the importance of improving arterial flow for wound healing. Once again she will follow up with us as an outpatient. Thank you for allowing us to assist in her care. If there are any questions or concerns please do not hesitate to contact us. Time Spent With Patient Time: Total time managing care of this patient today ____ minutes. Procedures Date of Service Date of Service: 03/12/25 Quality Stroke Does the patient have a stroke diagnosis?: No VTE Prior VTE?: No VTE Risk Level:: Medical - moderate - high VTE Device Contraindication: Treatment Not Indicated VTE Drug Contraindication: N/A - Med Ordered
[2025-03-12 11:32] LABS: Glucose, Whole Blood 227 mg/dL (60-115)
[2025-03-12 12:02] VITALS: BP 136/65; PULSE 74; RESP 18; TEMP 36.1; O2SAT 100
== END 2025-03-12 13:11 | disposition home health service (06) | DRG 638 ==
LOC: HO.ED 13:27 → HO.EDOVER 13:38 → HO.S3 14:28
PROVIDERS: Internal Medicine; Physician Assistant; Physician Assistant Medical; Admitting Provider Student in an Organized Health Care Education/Training Program; Emergency Provider Emergency Medicine; PCP Internal Medicine; Visit Provider Internal Medicine
DX: E11.69 Type 2 diabetes mellitus with other specified complication (principal); M86.171 Other acute osteomyelitis, right ankle and foot; E11.51 Type 2 diabetes mellitus with diabetic peripheral angiopathy without gangrene; E66.811 Obesity, class 1; E11.65 Type 2 diabetes mellitus with hyperglycemia; L97.519 Non-pressure chronic ulcer of other part of right foot with unspecified severity; I70.235 Atherosclerosis of native arteries of right leg with ulceration of other part of foot; Z71.3 Dietary counseling and surveillance; Z68.32 Body mass index [BMI] 32.0-32.9, adult; Z86.14 Personal history of Methicillin resistant Staphylococcus aureus infection; Z87.891 Personal history of nicotine dependence; Z79.84 Long term (current) use of oral hypoglycemic drugs; Z79.899 Other long term (current) drug therapy
CPT/HCPCS: 36415; 36573; 73620; 80048; 80053; 80202; 82550; 82565; 82947; 83036; 83605; 85025; 85652; 86140; 87040; 93922; 93925; 99285; C1751; J0878; J1171; J1650; J2270; J2543; J3373; J3374

== ENCOUNTER → 2025-03-08 12:29 | Outpatient (BNV) | payer OTHER, SELFPAY | PROVIDERS: PCP Internal Medicine; Visit Provider Radiology Diagnostic Radiology | DX: M86.171 Other acute osteomyelitis, right ankle and foot (principal); R22.42 Localized swelling, mass and lump, left lower limb | CPT/HCPCS: 73620 ==

== ENCOUNTER 2025-03-08 13:33 | Outpatient (BNV) | payer OTHER, SELFPAY | END 2025-03-11 10:48 | PROVIDERS: Admitting Provider Student in an Organized Health Care Education/Training Program; Emergency Provider Emergency Medicine; PCP Internal Medicine; Visit Provider Radiology Diagnostic Radiology | DX: I70.203 Unspecified atherosclerosis of native arteries of extremities, bilateral legs (principal) | CPT/HCPCS: 93922; 93925 ==

== ENCOUNTER → 2025-03-08 13:33 | Outpatient (BNV) | payer OTHER, SELFPAY | PROVIDERS: Admitting Provider Student in an Organized Health Care Education/Training Program; Emergency Provider Emergency Medicine; PCP Internal Medicine; Visit Provider Student in an Organized Health Care Education/Training Program | DX: I73.9 Peripheral vascular disease, unspecified (principal) | CPT/HCPCS: 99222; 99232; 99239 ==

== ENCOUNTER → 2025-03-08 13:33 | Outpatient (BNV) | payer OTHER, SELFPAY | PROVIDERS: Admitting Provider Student in an Organized Health Care Education/Training Program; Emergency Provider Emergency Medicine; PCP Internal Medicine; Visit Provider Internal Medicine | DX: M86.8X7 Other osteomyelitis, ankle and foot (principal) | CPT/HCPCS: 99232 ==

== ENCOUNTER → 2025-03-08 13:33 | Outpatient (BNV) | payer OTHER, SELFPAY | PROVIDERS: Admitting Provider Student in an Organized Health Care Education/Training Program; Emergency Provider Emergency Medicine; PCP Internal Medicine; Visit Provider Surgery Vascular Surgery | DX: I73.9 Peripheral vascular disease, unspecified (principal) | CPT/HCPCS: 99222; 99232 ==

== ENCOUNTER 2025-03-14 12:50 | Outpatient (AMB) | payer OTHER, SELFPAY ==
--- NOTE | 2025-03-14 12:58 | MHC.OFFVIS ---
Intake Visit Reasons: [facility] [place]/c follow up for nonhealing ulcer Intake Note: follow up s/p arterial US 03/08/25 for non-healing Right 5th toe wound. Pt states VNA once a week for picc line change. Doing dressing changes for toe. 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 She has a nonhealing right 5th toe gangrenous ulcer. Of note she is a diabetic which seems to be poorly controlled with last hemoglobin A1c of 10.6. She only recently quit smoking. She was seen and treated in the hospital regarding this. She subsequently received a PICC line and is now undergoing IV antibiotic therapy. During her hospitalist stay she was worked up for ROSIE Gregorio. She was noted to have SFA disease. She now presents for outpatient vascular follow-up. [facility] Medical History Type 2 diabetes mellitus with microalbuminuria Mixed dyslipidemia Obesity (BMI 30.0-34.9) Diabetes mellitus with hyperglycemia Cigarette smoker motivated to quit Surgical History No history of previous surgery Family History Father Substance use disorder Social History Household Members: Children Housing: House Alcohol intake: unknown Patient Tobacco Use Status: Former Tobacco user Tobacco use type: Cigarette e-Cigarette/Vaping Use: Never Used service: No Current occupational status: employed Cognitive needs: No Hearing needs: No Vision needs: Yes Review of Systems Const All systems reviewed & are unremarkable except as noted in HPI and below Reports no additional complaints ENT Reports Normal hearing present Card Denies chest pain, Denies chest pain at rest, Denies chest pain with activity and Denies pedal edema Resp Denies cough GI Denies abdominal pain Musc Denies abnormal gait, Denies muscle cramps and Denies radiating pain into limb Skin/Breast Denies skin ulcer and Denies wounds Neuro Reports Normal hearing present and Denies abnormal gait Psych Reports no additional complaints Physical Exam Const General: cooperative, healthy appearing and comfortable Orientation/consciousness: oriented to person, oriented to place and oriented to time HEENT Head: Yes normal to inspection Neck Neck: Yes normal visual inspection Carotids: no bruits Chest Chest palpation & inspection: normal inspection of the chest Resp Effort & Inspection: normal respiratory effort and able to speak in complete sentences Auscultation: clear to auscultation bilaterally, no crackles, no rales, no rhonchi and no wheezes Cardio Other: Bilateral DP signals Rate: regular rate Rhythm: regular rhythm Heart sounds: S1 normal heart sound present and S2 normal heart sound present Bruits: no carotid bruits GI Inspection: Yes normal to inspection Skin Other: Right 5th toe dry gangrene Wounds: no wounds Hair: normal Neuro General: oriented to person, oriented to place and oriented to time Cranial nerves: Yes CN's II-XII intact bilaterally and Yes Normal hearing present Cognition (Neuro): normal cognition Motor exam (neuro): 5/5 motor strength present throughout Extrem Other: venous exam: No significant superficial varicosities or spider telangiectasias, minimal edema General: No clubbing, No cyanosis and No edema Psych Appearance: grossly normal Mental Status: mental status grossly normal Speech and movement: Normal speech and movement present Results Reviewed Results Reviewed: Noninvasive arterial testing dated 03/11/2025 demonstrates right SFA monophasic flow. Written report and images were reviewed Assessment & Plan Assessment & Plan (1) PAD (peripheral artery disease): Code(s): I73.9 - Peripheral vascular disease, unspecified Category: Medical Plan: Patient has a nonhealing right foot ulcer. I have discussed the pathophysiology of peripheral vascular disease with the patient. I have also discussed risk factor modification. I have reviewed the patient's arterial testing which reveals right SFA disease. the patient would benefit from a right leg endovascular peripheral angiogram with possible angioplasty, stent, and/or atherectomy. This has been discussed in detail with the patient along with risks, benefits, and complications. This includes but is not limited to bleeding, infection, heart attack, need for emergent surgical repair, limb ischemia, blood vessel damage, bleeding, puncture, kidney injury, bruising, allergic reaction, and skin reaction. The patient demonstrates a clear understanding. We will schedule for the next appropriate time. Thank you for allowing us to assist in this patient's care. Coding Level of Care Code Est Pt Level 4 (56518) Diagnoses PAD (peripheral artery disease) I73.9
== END 2025-03-14 13:24 | disposition home or self-care (01) ==
LOC: HO.HVS 12:51
PROVIDERS: PCP Internal Medicine; Visit Provider Surgery Vascular Surgery
DX: I73.9 Peripheral vascular disease, unspecified (principal)
CPT/HCPCS: 99214

== ENCOUNTER 2025-03-20 07:20 | Day surgery (SDC) | payer OTHER, SELFPAY ==
[2025-03-20] VITALS (22 sets, daily range): BP systolic 95–127; BP diastolic 50–78; PULSE 58–74; RESP 10–18; TEMP 36.1–36.7; O2SAT 95–99; BMI 32.2
[2025-03-20 09:02] LABS: Glucose, Whole Blood 182 mg/dL (60-115)
[2025-03-20] MEDS: Heparin Sodium,Porcine 10,000 UNIT/10 ML VIAL 7000 UNIT IVPUSH (10:30)
--- NOTE | 2025-03-20 11:31 | W.PM.OPN ---
Operative Note Operative Note Date of Service: 03/20/25 Narrative: Angiogram report from [facility] Preoperative diagnosis: Atherosclerosis of right lower extremity with nonhealing ulcer Postoperative diagnosis: Same Procedure: 1. Ultrasound-guided left common femoral access 2. Aortogram with right lower extremity runoff 3. Right popliteal atherectomy and plasty Surgeon:Jt Ku M.D., FACS, RPVI Tool And Die Maker Level Five:None Anesthesia: Local with moderate conscious sedation. Total intraservice moderate sedation time was 54 minutes. I monitored the patient's level of consciousness and physiologic status continuously throughout the procedure. Specimens:none Drains:none Estimated blood loss: Less than 10 ml Radiation Dose: 232.1 mGy Implant: TotalTakeouttronic Impact DCB 5 x 60 Indications: 54-year-old female with a history of nonhealing right 5th toe ulcer and gangrene now presents for endovascular intervention. She had noninvasive testing concerning for distal SFA and popliteal disease. The patient has signed the informed consent after reviewing risks, complications, benefits, and alternatives previously discussed with the patient. The patient was given the opportunity to ask any additional questions or voice any concerns. All questions were answered to the patient's satisfaction. Procedure in detail: Patient was brought to the angiography suite prior to which a time-out was called for patient identification and site verification. Bilateral groins were prepped and draped in the standard surgical fashion. Under ultrasound guidance left common femoral was punctured with micro puncture needle and wire. Subsequently a precision 5 Azeri sheath was then placed. Bentson wire was advanced to the level of the aorta. 5 Azeri Flush catheter was brought up and parked at the level of the renal arteries. Aortogram was then undertaken. Catheter was brought down to the level of the iliac bifurcation. Iliacs and runoff was performed through the flush catheter that was parked at the bifurcation and a power injection was performed to visualize bilateral runoff vessels. Subsequently the catheter was then brought in up and over to the right side SFA. Once the right lower extremity runoff study was then plated we recognized that there was atherosclerotic disease in the popliteal. We used an 035 glidewire Advantage to come down into the popliteal. We had to use a trail Blazer catheter and subsequently a Navicross catheter to traverse this lesion. Once across through the Navicross catheter we instilled that with contrast to ensure true lumen once this was accomplished we then administered 8000 units of systemic heparin. After 5 minutes of circulation time up and over 6 Azeri sheath was then placed. We then brought across a 5 Azeri spider wire. This was placed in the distal popliteal at the P3 segment. We then used a Hawk 1 atherectomy device to do the right popliteal. Multiple unidirectional passes were then undertaken. Once lumen was gained we subsequently plasty this with a 5 x 60 drug coated balloon. This was brought into position in under 3 minutes and insufflated for a total of 3 minutes in duration. Once this was all accomplished completion angiogram demonstrated good result. We exchanged out for a short 6 Azeri sheath. And through this we used a CELT closure device. Adequate hemostasis was achieved and Dermabond was used as dressing. At the end the case sponge instrument counts were correct. Patient tolerated the procedure well. Returned to recovery with stable vitals. Interpretation of films: 1. Ultrasound demonstrates appropriate femoral access site. Vessel was patent with minimal stenosis. Needle entry was visualized. Image of ultrasound was saved. 2. Aortogram demonstrates appropriate caliber aorta. Minimal disease. Appropriate take-off of the renals. 3. Iliac images demonstrate no significant disease 4. Right Leg Common femoral artery: No significant disease Profundus Femoris: No significant disease Superficial femoral artery: No significant disease Popliteal artery (p1,p2,p3): Extremely atherosclerotic disease at the P1 P2 P3 segment. Near occlusive Anterior tibial artery: No significant disease good runoff to the foot Peroneal artery: Diminutive but present Posterior tibial artery: No significant disease good runoff to the foot Dorsalis pedis/plantar arch: Present but incomplete Conclusion: 1. Successful right atherectomy and plasty with drug coated balloon 2. Anticoagulation status: 6 months of aspirin and Plavix This note is constructed using voice recognition software. While every effort has been made to ensure accuracy, business development engineer errors may have been included. Thank you for allowing me to participate in the care of your patient. Yours sincerely, Jt Ku MD, FACS, R.P.V.I.
[2025-03-20 12:30] LABS: ACT 164 Celite s (79-173)
[2025-03-20 12:30] LABS: ACT 208 Celite s (79-173)
== END 2025-03-20 12:56 | disposition home or self-care (01) ==
PROVIDERS: PCP Internal Medicine; Visit Provider Surgery Vascular Surgery
DX: E11.52 Type 2 diabetes mellitus with diabetic peripheral angiopathy with gangrene (principal); L97.519 Non-pressure chronic ulcer of other part of right foot with unspecified severity; I70.261 Atherosclerosis of native arteries of extremities with gangrene, right leg; E11.65 Type 2 diabetes mellitus with hyperglycemia; E11.29 Type 2 diabetes mellitus with other diabetic kidney complication; E78.2 Mixed hyperlipidemia; Z79.4 Long term (current) use of insulin; Z79.84 Long term (current) use of oral hypoglycemic drugs; Z88.8 Allergy status to other drugs, medicaments and biological substances; F17.210 Nicotine dependence, cigarettes, uncomplicated
CPT/HCPCS: 37225; 76937; 82947; 85347; 99152; 99153; C1714; C1760; C1769; C1887; C1894; C2623; J1642; J1644; J2250; J3010; Q9967

== ENCOUNTER → 2025-03-20 07:20 | Outpatient (BNV) | payer OTHER, SELFPAY | PROVIDERS: PCP Internal Medicine; Visit Provider Surgery Vascular Surgery | DX: I70.232 Atherosclerosis of native arteries of right leg with ulceration of calf (principal) | CPT/HCPCS: 37225; 75625; 75710; 76937; 99152 ==

== ENCOUNTER 2025-03-25 09:32 | Outpatient (REF) | payer OTHER, SELFPAY ==
[2025-03-25 13:55] LABS: Alanine Aminotransferase 29 U/L (0-31); Anion Gap 14 (12-20); Aspartate Amino Transferase 25 U/L (5-31); Blood Urea Nitrogen 20 mg/dL (9-16); Calcium 9.6 mg/dL (8.4-10.2); Carbon Dioxide 23 mmol/L (22-29); Chloride 106 mmol/L (96-108); Cholesterol 244 mg/dL (<200); Estimated Glomerular Filt Rate > 60; HDL Cholesterol 42 mg/dL (>40); Potassium 4.4 mmol/L (3.3-5.1); Sodium 139 mmol/L (135-145); Triglycerides 161 mg/dL (<150)
[2025-03-25 14:27] LABS: Hemoglobin A1C 283.1317 umol/L; Total Hemoglobin (HGBA1C) 3514.6880 umol/L
== END 2025-03-25 09:33 | disposition home or self-care (01) ==
LOC: HO.HMGCLDS 09:32
PROVIDERS: Internal Medicine; PCP Internal Medicine; Visit Provider Internal Medicine
DX: E11.29 Type 2 diabetes mellitus with other diabetic kidney complication (principal); E11.65 Type 2 diabetes mellitus with hyperglycemia; E78.2 Mixed hyperlipidemia; E66.9 Obesity, unspecified; R80.9 Proteinuria, unspecified
CPT/HCPCS: 36415; 80048; 80061; 83036; 84450; 84460

== ENCOUNTER 2025-03-26 19:14 | Outpatient (REF) | payer OTHER, SELFPAY ==
[2025-03-26 19:18] LABS: MANUAL DIFF FLAG NO
[2025-03-26 19:24] LABS: Hematocrit 36.1 % (37.0-47.0); Hemoglobin 12.5 g/dl (12.0-16.0); Imm Gran Abs Auto 0.04 X10*3/uL (0.00-0.03); Imm Gran Pct Auto 0.4 % (0.0-0.4); Lymphocytes Absolute Auto 2.3 X10*3/uL (1.2-4.9); Mean Corpuscular HGB Conc 34.6 g/dl (31.0-35.0); Mean Corpuscular Hemoglobin 31.1 pg (27.0-33.0); Mean Corpuscular Volume 89.8 fL (80.0-98.0); NRBC Abs Auto 0.000 X10*3/uL (0.0-0.012); NRBC Pct Auto 0.0 /100WBC (0.0-0.2); Platelet Count 309 X10*3/uL (160-400); Red Blood Count 4.02 X10*6/uL (4.20-5.50); White Blood Count 10.1 X10*3/uL (4.8-10.8)
[2025-03-26 19:39] LABS: Anion Gap 18 (12-20); Blood Urea Nitrogen 22 mg/dL (9-16); Calcium 9.3 mg/dL (8.4-10.2); Carbon Dioxide 23 mmol/L (22-29); Chloride 103 mmol/L (96-108); Estimated Glomerular Filt Rate > 60; Potassium 4.8 mmol/L (3.3-5.1); Sodium 139 mmol/L (135-145)
== END 2025-03-26 19:15 | disposition home or self-care (01) ==
LOC: HO.LNP 19:14
PROVIDERS: Visit Provider Internal Medicine Cardiovascular Disease
DX: M86.9 Osteomyelitis, unspecified (principal)
CPT/HCPCS: 80048; 85025

== ENCOUNTER 2025-03-28 12:35 | Outpatient (AMB) | payer OTHER, SELFPAY ==
[2025-03-28 12:39] VITALS: BP 118/74; PULSE 83; RESP 18; TEMP 37.2; O2SAT 96; BMI 31.8
--- NOTE | 2025-03-28 12:39 | MHC.PC.OV ---
Vital Signs 03/28/25 12:39 Height 5 ft 8 in Weight 209 lb BMI 31.8 BP 118/74 Blood Pressure Location Lt brachial Position Sitting Respiration 18 Pulse 83 Pulse Source Pulse Oximeter Temp 98.9 F Temp Source Oral Pulse Oximetry (%) 96 Oxygen Delivery Method Room Air Intake Visit Reasons: hdf Intake Note: Pt is here today for HDF. Allergies control pills Allergy (Unknown, Uncoded 03/28/25 12:40) DVT, R leg Tobacco use date assessed: 03/28/25 Dental Screening Dental Screen Date: 03/28/25 Did you have a dental visit in the last 12 months?: Yes Did you have a dental problem in the last 6 months where you did not have access to dental care?: No Was dental information given to patient?: Patient has dentist HPI HPI Comments History of Present Illness Details Patient is a 54-year-old female with a past medical history of T2DM, PAD, HLD, obesity, current smoker, who was seen in the emergency room at [facility] on February 02 with right toe pain and concern of infection. She refused admission at that time and was discharged on p.o. antibiotics, she went back to the emergency department on March 08 with a similar complaint saying she had purulent foul-smelling drainage from the right 5th toe. While in the ED imaging was concerning for right 5th toe osteomyelitis. She was then admitted to [facility], she was given IV vanco to start. She was then evaluated by ID and they recommended 6 weeks of daptomycin via PICC line with a weekly CPK check, she was started on these antibiotics and her last day will be 04/22/2025. She was also seen by vascular surgery and they found there was no indication for intervention but they did say she has SFA disease and she should have an angiogram scheduled out patient scheduled through vascular surgery. She was told to hold her statin until she completed the daptomycin treatment. She was discharged on March 12 with nursing visits, she is also discharged on insulin when she was only on metformin previously, she was given oxycodone for pain and told to follow up with her PCP 1 week. Today, she tells me she is self administering the antibiotics. She tells me she is taking oxy with tylenol for pain, pain is 5-6/10, every day gets better. She just ran out of the Oxycodone. Morphine worked well but she hasn't had it since the hospital. She changes the dressing herself. She met with Vascular Surg, her arterial testing which reveals right SFA disease and subsequent angiogram on 03/20. Conclusion: 1. Successful right atherectomy and plasty with drug coated balloon 2. Anticoagulation status: 6 months of aspirin and Plavix She is taking the plavix, overall, foot is feeling better, toe wound is improved and has a nub of a scab that is about to fall off. It is wrapped and she doesn't want to remove the dressing as it gets very painful when it's removed. She denies fevers, some pink/clear drainage. She has follow up with Dr Ku on 04/04/25. She is not taking the Lantus, has only had to take 2U of Lispro at a time. Blood sugars are usually 130's or less, occasionally 160's. Is still taking the metformin. She has quit smoking a few months ago, was off the patch, was put back on 14mg in the hospital. Was just refilled 5 days ago by PCP, will try to go to 7mg next refill and wean off again. PFSH Medical History Type 2 diabetes mellitus with microalbuminuria Mixed dyslipidemia Obesity (BMI 30.0-34.9) Diabetes mellitus with hyperglycemia Cigarette smoker motivated to quit Surgical History No history of previous surgery Family History Father Substance use disorder Social History Household Members: Children Household Members Other:: alone Housing: House Are you a primary acute care physical therapist to a significant other at home: No Do you presently have visiting nurse or other home services: No Alcohol intake: unknown Patient Tobacco Use Status: Former Tobacco user Tobacco use type: Cigarette e-Cigarette/Vaping Use: Never Used service: No Current occupational status: employed Cognitive needs: No Hearing needs: No Vision needs: Yes Questionnaire Thrive Questionnaire Date Thrive assessed: 11/13/24 I am a: Patient What is your living situation today?: I have a steady place to live Within the past 12 months, did the food you bought not last and you didn't have the money to get more?: Never true Within the past 12 months, did you worry whether your food would run out before you got money to buy more?: Never true Do you have trouble paying for medicines?: No Do you have trouble getting transportation to medical appointments?: No Do you have trouble paying your heating and electricity bill?: No Do you have trouble taking care of your child, family member or friend?: No Do you have trouble with day-to-day activities such as bathing, preparing meals, shopping, managing finances, etc.?: No Are you currently unemployed and looking for a job?: No Are you interested in more education?: No Please select the resources that you would like help with: None Currently or been in a relationship where the following occur: No concerns reported THRIVE Score: 0 JASVIR-7 AMB Questionnaire JASVIR-7 Date JASVIR - 7 assessed: 11/13/24 Source: Developed by Drs. Vijay Franco, Audelia Worthington, Long Santo and colleagues, with an educational sujit from [employer]. Review of Systems Const All systems reviewed & are unremarkable except as noted in HPI and below Physical exam (Primary Care) Vital Signs: Last Vital Signs Temp 98.9 F 03/28/25 12:39 Pulse 83 03/28/25 12:39 Resp 18 03/28/25 12:39 BP 118/74 03/28/25 12:39 Pulse Ox 96 03/28/25 12:39 Oxygen Delivery Method Room Air 03/28/25 12:39 BMI result Body Mass Index 31.8 Tobacco/Smoking Status: Tobacco use Status Tobacco use date assessed 03/28/25 03/28/25 12:46 Patient Tobacco Use Status Former Tobacco user 03/28/25 12:46 Tobacco use type Cigarette 03/28/25 12:46 e-Cigarette/Vaping Use Never Used 03/28/25 12:46 Thrive Assessment: Date of Thrive Assessment Date Thrive assessed 11/13/24 03/28/25 12:46 Currently or been in a relationship where the following occur: No concerns reported Const General: cooperative, healthy appearing, comfortable, no acute distress and well developed Orientation/consciousness: patient oriented x3 Limitations: no limitations HENMT Head: Yes normal to inspection Ears: hearing grossly normal bilaterally General nose exam: Normal external nose present Face and sinus: Yes normal facial exam Eyes General: appearance normal, both eyes and all related structures Neck Neck: Yes normal visual inspection and Yes full ROM Resp Effort & Inspection: normal respiratory effort and able to speak in complete sentences Skin General skin exam: no rashes or lesions noted Neuro General: patient oriented x3 Extrem General: Yes normal to inspection Coding Level of Care Code Est Pt Level 4 (11574) Diagnoses Hospital discharge follow-up Z09 PAD (peripheral artery disease) I73.9 Type 2 diabetes mellitus with hyperglycemia, without long-term current use of insulin E11.65 Diabetes mellitus livestock producer insulin use: without livestock producer use Diabetes mellitus type: type 2 Toe osteomyelitis, right M86.9 Assessment & Plan Assessment & Plan (1) Hospital discharge follow-up: Code(s): Z09 - Encounter for follow-up examination after completed treatment for conditions other than malignant neoplasm Category: Medical Plan: - Continue Daptomycin and weekly CPK check - Continue abstaining from smoking and using patch (2) PAD (peripheral artery disease): Code(s): I73.9 - Peripheral vascular disease, unspecified Category: Medical Plan: -Continue plavix and aspirin - Follow up with Dr Ku on 04/04/25, as scheduled (3) Diabetes mellitus with hyperglycemia: Code(s): E11.65 - Type 2 diabetes mellitus with hyperglycemia Category: Medical Qualifiers: Diabetes mellitus halfway insulin use: without halfway use Diabetes mellitus type: type 2 Qualified Code(s): E11.65 - Type 2 diabetes mellitus with hyperglycemia Plan: - Continue monitoring blood sugars, taking your Metformin and Lispro as per the ISS. (4) Toe osteomyelitis, right: Code(s): M86.9 - Osteomyelitis, unspecified Category: Medical Plan: -Continue wound care treatment and antibiotics Medications: New tramadol ER (Ultram ER) 100 mg PO .qhs PRN 14 tabs 0RF pain (scale score 7-10)
== END 2025-03-28 13:26 | disposition home or self-care (01) ==
LOC: HO.HMCC 12:36
PROVIDERS: PCP Internal Medicine; Visit Provider Physician Assistant
DX: Z09 Encounter for follow-up examination after completed treatment for conditions other than malignant neoplasm (principal); I73.9 Peripheral vascular disease, unspecified; E11.65 Type 2 diabetes mellitus with hyperglycemia; M86.9 Osteomyelitis, unspecified

== ENCOUNTER 2025-04-02 17:46 | Outpatient (REF) | payer OTHER, SELFPAY ==
[2025-04-02 17:49] LABS: MANUAL DIFF FLAG NO
[2025-04-02 17:55] LABS: Hematocrit 37.2 % (37.0-47.0); Hemoglobin 12.4 g/dl (12.0-16.0); Imm Gran Abs Auto 0.03 X10*3/uL (0.00-0.03); Imm Gran Pct Auto 0.4 % (0.0-0.4); Lymphocytes Absolute Auto 2.1 X10*3/uL (1.2-4.9); Mean Corpuscular HGB Conc 33.3 g/dl (31.0-35.0); Mean Corpuscular Hemoglobin 30.5 pg (27.0-33.0); Mean Corpuscular Volume 91.4 fL (80.0-98.0); NRBC Abs Auto 0.000 X10*3/uL (0.0-0.012); NRBC Pct Auto 0.0 /100WBC (0.0-0.2); Platelet Count 280 X10*3/uL (160-400); Red Blood Count 4.07 X10*6/uL (4.20-5.50); White Blood Count 7.8 X10*3/uL (4.8-10.8)
[2025-04-02 18:41] LABS: Anion Gap 13 (12-20); Blood Urea Nitrogen 20 mg/dL (9-16); Calcium 9.1 mg/dL (8.4-10.2); Carbon Dioxide 26 mmol/L (22-29); Chloride 104 mmol/L (96-108); Estimated Glomerular Filt Rate > 60; Potassium 4.4 mmol/L (3.3-5.1); Sodium 139 mmol/L (135-145)
== END 2025-04-02 17:47 | disposition home or self-care (01) ==
LOC: HO.LNP 17:46
PROVIDERS: Visit Provider Internal Medicine Cardiovascular Disease
DX: M86.9 Osteomyelitis, unspecified (principal)
CPT/HCPCS: 80048; 82550; 85025

== ENCOUNTER 2025-04-04 12:56 | Outpatient (AMB) | payer OTHER, SELFPAY ==
--- NOTE | 2025-04-04 13:04 | MHC.OFFVIS ---
Vital Signs 04/04/25 13:05 Height 5 ft 8 in Weight 209 lb BMI 31.8 Intake Visit Reasons: 2 week follow up R leg angio 03/20/25 Intake Note: 2 week follow up Right Angio 03/20/25. Pt states she had some swelling until yesterday and is now decreased and feels good. Pt states discoloration has decreased. Has non-healing wound on right 5th toe Accompanied by: Self / Same As Patient Allergies control pills Allergy (Unknown, Uncoded 04/04/25 13:07) DVT, R leg HPI HPI 2 week follow up R leg angio 03/20/25: Details: 54-year-old female status post right lower extremity endovascular intervention. Reports she doing extremely well. Reports that her pain and swelling have significantly decreased. She does have a nonhealing right 5th toe ulcer which continues to improve. She is currently with a PICC line undergoing IV antibiotic therapy which is scheduled to finish April 27. PFSH Medical History Type 2 diabetes mellitus with microalbuminuria Mixed dyslipidemia Obesity (BMI 30.0-34.9) Diabetes mellitus with hyperglycemia Cigarette smoker motivated to quit Surgical History No history of previous surgery Family History Father Substance use disorder Social History Household Members: Children Household Members Other:: alone Housing: House Are you a primary doggy daycare activities director to a significant other at home: No Do you presently have visiting nurse or other home services: No Alcohol intake: unknown Patient Tobacco Use Status: Former Tobacco user Tobacco use type: Cigarette e-Cigarette/Vaping Use: Never Used service: No Current occupational status: employed Cognitive needs: No Hearing needs: No Vision needs: Yes Review of Systems Const All systems reviewed & are unremarkable except as noted in HPI and below Reports no additional complaints ENT Reports Normal hearing present Card Denies chest pain, Denies chest pain at rest, Denies chest pain with activity and Denies pedal edema Resp Denies cough GI Denies abdominal pain Musc Denies abnormal gait, Denies muscle cramps and Denies radiating pain into limb Skin/Breast Denies skin ulcer and Denies wounds Neuro Reports Normal hearing present and Denies abnormal gait Psych Reports no additional complaints Physical Exam Vital Signs: BMI result Body Mass Index 31.8 Const General: cooperative, healthy appearing and comfortable Orientation/consciousness: oriented to person, oriented to place and oriented to time HEENT Head: Yes normal to inspection Neck Neck: Yes normal visual inspection Carotids: no bruits Chest Chest palpation & inspection: normal inspection of the chest Resp Effort & Inspection: normal respiratory effort and able to speak in complete sentences Auscultation: clear to auscultation bilaterally, no crackles, no rales, no rhonchi and no wheezes Cardio Rate: regular rate Rhythm: regular rhythm Heart sounds: S1 normal heart sound present and S2 normal heart sound present Bruits: no carotid bruits Peripheral pulses: Peripheral pulses 2+ throughout GI Inspection: Yes normal to inspection Skin Other: Right 5th toe 0.5 cm open ulceration Wounds: no wounds Hair: normal Neuro General: oriented to person, oriented to place and oriented to time Cranial nerves: Yes CN's II-XII intact bilaterally and Yes Normal hearing present Cognition (Neuro): normal cognition Motor exam (neuro): 5/5 motor strength present throughout Extrem Other: venous exam: No significant superficial varicosities or spider telangiectasias, minimal edema General: No clubbing, No cyanosis and No edema Psych Appearance: grossly normal Mental Status: mental status grossly normal Speech and movement: Normal speech and movement present Assessment & Plan Assessment & Plan (1) PAD (peripheral artery disease): Code(s): I73.9 - Peripheral vascular disease, unspecified Category: Medical Plan: In short patient has nonhealing right 5th toe. We will continue with local wound care. It appears to be improving significantly. In addition she will continue on aspirin and Plavix. She will require three-month arterial surveillance follow-up. She will follow up with us in approximately 3 weeks to ensure that the wound continues to heal. Thank you for allowing us to assist in her care Orders: Orders US arterial duplex LE BI 3 Months I73.9 - Peripheral vascular disease, unspecified Coding Level of Care Code Est Pt Level 3 (83214) Diagnoses PAD (peripheral artery disease) I73.9
[2025-04-04 13:05] VITALS: BMI 31.8
== END 2025-04-04 13:27 | disposition home or self-care (01) ==
LOC: HO.HVS 12:57
PROVIDERS: PCP Internal Medicine; Visit Provider Surgery Vascular Surgery
DX: I73.9 Peripheral vascular disease, unspecified (principal)
CPT/HCPCS: 99213

== ENCOUNTER 2025-04-09 17:51 | Outpatient (REF) | payer OTHER, SELFPAY ==
[2025-04-09 17:53] LABS: MANUAL DIFF FLAG NO
[2025-04-09 17:58] LABS: Hematocrit 38.8 % (37.0-47.0); Hemoglobin 13.0 g/dl (12.0-16.0); Imm Gran Abs Auto 0.03 X10*3/uL (0.00-0.03); Imm Gran Pct Auto 0.5 % (0.0-0.4); Lymphocytes Absolute Auto 2.3 X10*3/uL (1.2-4.9); Mean Corpuscular HGB Conc 33.5 g/dl (31.0-35.0); Mean Corpuscular Hemoglobin 30.3 pg (27.0-33.0); Mean Corpuscular Volume 90.4 fL (80.0-98.0); NRBC Abs Auto 0.000 X10*3/uL (0.0-0.012); NRBC Pct Auto 0.0 /100WBC (0.0-0.2); Platelet Count 278 X10*3/uL (160-400); Red Blood Count 4.29 X10*6/uL (4.20-5.50); White Blood Count 6.6 X10*3/uL (4.8-10.8)
[2025-04-09 18:09] LABS: Anion Gap 16 (12-20); Blood Urea Nitrogen 20 mg/dL (9-16); Calcium 9.5 mg/dL (8.4-10.2); Carbon Dioxide 23 mmol/L (22-29); Chloride 104 mmol/L (96-108); Estimated Glomerular Filt Rate > 60; Potassium 4.5 mmol/L (3.3-5.1); Sodium 138 mmol/L (135-145)
== END 2025-04-09 17:52 | disposition home or self-care (01) ==
LOC: HO.LNP 17:51
PROVIDERS: Visit Provider Internal Medicine Cardiovascular Disease
DX: M86.9 Osteomyelitis, unspecified (principal)
CPT/HCPCS: 80048; 82550; 85025

== ENCOUNTER 2025-04-24 13:07 | Outpatient (AMB) | payer OTHER, SELFPAY ==
--- NOTE | 2025-04-24 13:24 | MHC.OFFVIS ---
Vital Signs 04/24/25 13:25 Height 5 ft 8 in Weight 212 lb BMI 32.2 BP 116/70 Pulse 88 Pulse Oximetry (%) 94 Intake Visit Reasons: [facility] reff/osteomyelitis/picc line removal needed Allergies control pills Allergy (Unknown, Uncoded 04/24/25 13:33) DVT, R leg HPI HPI [facility] reff/osteomyelitis/picc line removal needed: Details: She finished eight weeks Daptomycin. She has no concerns. PFSH Medical History Type 2 diabetes mellitus with microalbuminuria Mixed dyslipidemia Obesity (BMI 30.0-34.9) Diabetes mellitus with hyperglycemia Cigarette smoker motivated to quit Surgical History No history of previous surgery Family History Father Substance use disorder Social History Household Members: Children Household Members Other:: alone Housing: House Are you a primary patient care coordinator to a significant other at home: No Do you presently have visiting nurse or other home services: No Alcohol intake: unknown Patient Tobacco Use Status: Former Tobacco user Tobacco use type: Cigarette e-Cigarette/Vaping Use: Never Used service: No Current occupational status: employed Cognitive needs: No Hearing needs: No Vision needs: Yes Review of Systems Const All systems reviewed & are unremarkable except as noted in HPI and below Physical Exam Exam Exam: Vital Signs: Last Vital Signs Pulse 88 04/24/25 13:25 BP 116/70 04/24/25 13:25 Pulse Ox 94 04/24/25 13:25 BMI result Body Mass Index 32.2 Const Other: Assessment & Plan Assessment & Plan (1) Toe osteomyelitis, right: Code(s): M86.9 - Osteomyelitis, unspecified Category: Medical Plan She is doing well,no open areas. Stop Daptomycin (finished last week and pull line). See if needed. Coding Level of Care Code Est Pt Level 3 (00657) Diagnoses Toe osteomyelitis, right M86.9
[2025-04-24 13:25] VITALS: BP 116/70; PULSE 88; O2SAT 94; BMI 32.2
== END 2025-04-24 14:04 | disposition home or self-care (01) ==
LOC: HO.HID 13:07
PROVIDERS: PCP Internal Medicine; Visit Provider Internal Medicine
DX: M86.9 Osteomyelitis, unspecified (principal)
CPT/HCPCS: 99213